=== PATIENT | male | born 1955 | race Caucasian/White ===

== ENCOUNTER 2021-11-24 14:36 | Outpatient (CLI) | payer MEDICARE, SELFPAY ==
[2021-11-24 14:41] LABS: Bacteria 0 SEEN /hpf (None Seen); Mucous, Urine 0 SEEN /hpf (<or=2+); Red Blood Cells-Urine 0 SEEN /hpf (0-5); Squamous Epithelial Cells - UA 0 SEEN /hpf (0-5); White Blood Cells 0 SEEN /hpf (0-5)
[2021-11-24 17:54] LABS: Color, Urine Yellow (Yellow); Glucose, Dipstick Normal (Normal); Ketone-Dipstick Negative (Negative); Leukocyte Esterase-Dipstick Negative /ul (Negative); Nitrite-Dipstick Negative (Negative); Occult Blood-Urine 10 /ul (Negative); Protein-Dipstick Negative (Negative); Urine Bilirubin Dipstick Negative (Negative); Urine Clarity Clear (Clear); Urine Urobilinogen Normal (Normal)
[2021-11-24 17:55] LABS: Absolute Lymphocyte Count 2.65 X10^3/uL (0.83-4.51); Absolute Neutrophil Count 3.8 X10^3/uL (2.0-7.7); Basophil# 0.03 X10^3/uL; Basophil% 0.4 % (0-1); Eosinophil# 0.11 X10^3/uL; Eosinophils% 1.6 % (0-5); Hematocrit 42.2 % (40-54); Hemoglobin 14.2 g/dL (13.0-16.5); Lymphocyte # 2.65 X10^3/ul (0.83-4.51); Lymphocyte % 38.1 % (19-41); Mean Corp Hgb Conc 33.6 g/dL (32-36); Mean Corpuscular Volume 98.1 fL (80-94); Mean Platelet Vol. 10.8 fl (6.2-12.0); Monocyte% 5.7 % (0-10); NRBC Flagged by Analyzer 0 % (0-5); Neutrophil # 3.75 X10^3/uL (2.7-7.7); Neutrophil % 53.9 % (47-70); Platelet Count 230 K/mm3 (150-450); RBC Distribution Width CV 13.5 % (11.6-14.6); RBC Distribution Width SD 49.1 fl (35.1-43.9)
[2021-11-24 18:17] LABS: Vitamin D,25 Hydroxy 57.3 ng/mL
[2021-11-24 18:27] LABS: Microalbumin,Random Urine 9.3 mg/L (NO RANGE EST.); Microalbumin:Creatinine Ratio 6.2 mg/g CRE (<30 mg/g CRE)
[2021-11-24 18:31] LABS: Hemoglobin A1c 5.5 % (3.8-5.6)
[2021-11-24 18:33] LABS: AST(SGOT) 19 U/L (15-37); Alanine Aminotransfer ALT/SGPT 32 U/L (16-61); Alkaline Phosphatase 55 U/L (45-117); Anion Gap 8 (5-15); BUN 14 mg/dL (7-18); BUN/Creat Ratio 19.8 RATIO (10-20); Calcium,Total 9.4 mg/dL (8.5-10.1); Chloride 102 mmol/L (98-107); Cholesterol 105 mg/dL (200); Creatinine, Serum 0.71 mg/dL (0.70-1.30); EST Glomerular Filtration Rate 119 mL/min (>60); Est Glom Filt Rate - Afr Amer 143 mL/min (>60); Globulin 3.9 g/dL (2.2-4.2); Glucose 99 mg/dL (74-106); High Density Lipoprotein 40 mg/dL; Potassium 3.6 mmol/L (3.5-5.1); Protein, Total 7.9 g/dL (6.4-8.2); Sodium Level 134 mmol/L (136-145); Thyroid Stim Hormone (TSH) 2.12 uIU/mL (0.358-3.74); Triglycerides 148 mg/dL; Very Low Density Lipoprotein 30 mg/dL (5-40)
== END 2021-11-24 23:59 | disposition short-term general hospital (02) ==
PROVIDERS: Visit Provider Family Medicine
DX: E11.59 Type 2 diabetes mellitus with other circulatory complications (principal); E11.69 Type 2 diabetes mellitus with other specified complication; E55.9 Vitamin D deficiency, unspecified
CPT/HCPCS: 36415; 80053; 80061; 81001; 82043; 82306; 82570; 83036; 84443; 85025

== ENCOUNTER → 2022-02-23 | Outpatient (CLI) | payer MEDICARE, SELFPAY ==
[2022-02-23 10:08] LABS: Absolute Lymphocyte Count 2.37 X10^3/uL (0.83-4.51); Absolute Neutrophil Count 5.2 X10^3/uL (2.0-7.7); Basophil# 0.04 X10^3/uL; Basophil% 0.5 % (0-1); Eosinophil# 0.12 X10^3/uL; Eosinophils% 1.4 % (0-5); Hematocrit 41.2 % (40-54); Hemoglobin 13.9 g/dL (13.0-16.5); Lymphocyte # 2.37 X10^3/ul (0.83-4.51); Lymphocyte % 28.6 % (19-41); Mean Corp Hgb Conc 33.7 g/dL (32-36); Mean Corpuscular Hgb 33.4 pg (27.0-32.0); Mean Platelet Vol. 10.6 fl (6.2-12.0); Monocyte# 0.56 X10^3/uL; Monocyte% 6.7 % (0-10); NRBC Flagged by Analyzer 0 % (0-5); Neutrophil # 5.19 X10^3/uL (2.7-7.7); Neutrophil % 62.6 % (47-70); Platelet Count 202 K/mm3 (150-450); RBC Distribution Width CV 13.5 % (11.6-14.6); RBC Distribution Width SD 49.3 fl (35.1-43.9); Red Blood Count 4.16 M/mm3 (4.6-6.2); White Blood Count 8.3 K/mm3 (4.4-11.0)
[2022-02-23 10:23] LABS: ALB/GLOB Ratio 1.1 RATIO (0.9-2.4); AST(SGOT) 17 U/L (15-37); Alanine Aminotransfer ALT/SGPT 26 U/L (16-61); Albumin, Serum 3.9 g/dL (3.2-5.0); Alkaline Phosphatase 52 U/L (45-117); Anion Gap 8 (5-15); BUN 13 mg/dL (7-18); BUN/Creat Ratio 18.8 RATIO (10-20); Calcium,Total 9.2 mg/dL (8.5-10.1); Chloride 102 mmol/L (98-107); Cholesterol 114 mg/dL (200); Creatinine, Serum 0.69 mg/dL (0.70-1.30); EST Glomerular Filtration Rate 121 mL/min (>60); Est Glom Filt Rate - Afr Amer 147 mL/min (>60); Globulin 3.7 g/dL (2.2-4.2); Glucose 110 mg/dL (74-106); High Density Lipoprotein 41 mg/dL; Potassium 4.1 mmol/L (3.5-5.1); Protein, Total 7.6 g/dL (6.4-8.2); Sodium Level 137 mmol/L (136-145); Triglycerides 41 mg/dL; Very Low Density Lipoprotein 8 mg/dL (5-40)
[2022-02-23 10:25] LABS: Vitamin D,25 Hydroxy 56.2 ng/mL
[2022-02-23 10:41] LABS: Hemoglobin A1c 5.6 % (3.8-5.6)
== END | disposition home or self-care (01) ==
LOC: MTLAB 07:34
PROVIDERS: PCP Family Medicine; Referring Provider Family Medicine; Visit Provider Family Medicine
DX: E11.59 Type 2 diabetes mellitus with other circulatory complications (principal); E11.69 Type 2 diabetes mellitus with other specified complication; E55.9 Vitamin D deficiency, unspecified
CPT/HCPCS: 36415; 80053; 80061; 82306; 83036; 85025

== ENCOUNTER → 2022-06-22 | Outpatient (CLI) | payer MEDICARE, SELFPAY ==
[2022-06-22 08:19] LABS: Bacteria 0 SEEN /hpf (None Seen); Mucous, Urine 0 SEEN /hpf (<or=2+); Red Blood Cells-Urine 0 SEEN /hpf (0-5); Squamous Epithelial Cells - UA 0 SEEN /hpf (0-5); White Blood Cells 0 SEEN /hpf (0-5)
--- NOTE | 2022-06-22 09:00 | RAD_ITS ---
STUDY: X-RAY CHEST REASON FOR EXAM: Male, 67 years old. CHEST WALL PAIN TECHNIQUE: PA and lateral views of the chest. COMPARISON: None. FINDINGS: Hyperinflation. There is no demonstrated pleural abnormality. Normal size heart. Normal mediastinum and mekhi. Normal visualized pulmonary arteries. There is atherosclerotic calcification of the aortic arch with tortuosity. 50% loss of height of a mid dorsal vertebrae. Prior vertebroplasty. Normal visualized ribs, clavicles, and shoulders. There is no demonstrated abnormality of the visualized soft tissue structures of the upper abdomen. RAD/Chest PA and Lateral IMPRESSION: Hyperinflation. No acute abnormality is seen. Electronically Signed: Jean Pierre Trammell MD at 12:43 EDT ,
[2022-06-22 10:10] LABS: Absolute Lymphocyte Count 3.08 X10^3/uL (0.83-4.51); Absolute Neutrophil Count 4.9 X10^3/uL (2.0-7.7); Basophil# 0.04 X10^3/uL; Basophil% 0.5 % (0-1); Eosinophil# 0.15 X10^3/uL; Eosinophils% 1.7 % (0-5); Hemoglobin 14.6 g/dL (13.0-16.5); Lymphocyte # 3.08 X10^3/ul (0.83-4.51); Lymphocyte % 35.9 % (19-41); Mean Corp Hgb Conc 34.8 g/dL (32-36); Mean Corpuscular Hgb 34.3 pg (27.0-32.0); Mean Corpuscular Volume 98.6 fL (80-94); Mean Platelet Vol. 10.3 fl (6.2-12.0); Monocyte# 0.45 X10^3/uL; Monocyte% 5.2 % (0-10); NRBC Flagged by Analyzer 0 % (0-5); Neutrophil # 4.85 X10^3/uL (2.7-7.7); Neutrophil % 56.5 % (47-70); Platelet Count 194 K/mm3 (150-450); RBC Distribution Width CV 13.4 % (11.6-14.6); RBC Distribution Width SD 49.1 fl (35.1-43.9); Red Blood Count 4.26 M/mm3 (4.6-6.2); White Blood Count 8.6 K/mm3 (4.4-11.0)
[2022-06-22 10:16] LABS: Color, Urine Straw (Yellow); Glucose, Dipstick Normal (Normal); Ketone-Dipstick Negative (Negative); Leukocyte Esterase-Dipstick Negative /ul (Negative); Nitrite-Dipstick Negative (Negative); Occult Blood-Urine 50 /ul (Negative); Protein-Dipstick Negative (Negative); Urine Bilirubin Dipstick Negative (Negative); Urine Clarity Clear (Clear); Urine Urobilinogen Normal (Normal)
[2022-06-22 10:28] LABS: Vitamin D,25 Hydroxy 51.3 ng/mL
[2022-06-22 10:34] LABS: Hemoglobin A1c 5.7 % (3.8-5.6)
[2022-06-22 10:55] LABS: Microalbumin,Random Urine < 5.0 mg/L (NO RANGE EST.)
[2022-06-22 11:18] LABS: ALB/GLOB Ratio 1.2 RATIO (0.9-2.4); AST(SGOT) 14 U/L (15-37); Alanine Aminotransfer ALT/SGPT 22 U/L (16-61); Albumin, Serum 4.2 g/dL (3.2-5.0); Alkaline Phosphatase 44 U/L (45-117); Anion Gap 5 (5-15); BUN 16 mg/dL (7-18); BUN/Creat Ratio 22.7 RATIO (10-20); Calcium,Total 9.6 mg/dL (8.5-10.1); Chloride 104 mmol/L (98-107); Cholesterol 115 mg/dL (200); Creatinine, Serum 0.71 mg/dL (0.70-1.30); EST Glomerular Filtration Rate 118 mL/min (>60); Est Glom Filt Rate - Afr Amer 143 mL/min (>60); Globulin 3.4 g/dL (2.2-4.2); Glucose 104 mg/dL (74-106); High Density Lipoprotein 34 mg/dL; Potassium 4.3 mmol/L (3.5-5.1); Protein, Total 7.6 g/dL (6.4-8.2); Sodium Level 137 mmol/L (136-145); Triglycerides 143 mg/dL
[2022-06-22 11:19] LABS: Very Low Density Lipoprotein 29 mg/dL (5-40)
== END | disposition home or self-care (01) ==
PROVIDERS: PCP Family Medicine; Referring Provider Family Medicine; Visit Provider Family Medicine
DX: R07.89 Other chest pain (principal); E11.69 Type 2 diabetes mellitus with other specified complication; F17.210 Nicotine dependence, cigarettes, uncomplicated; E55.9 Vitamin D deficiency, unspecified
CPT/HCPCS: 36415; 71046; 80053; 80061; 81001; 82043; 82306; 82570; 83036; 85025

== ENCOUNTER → 2022-10-29 | Outpatient (CLI) | payer MEDICARE, SELFPAY ==
[2022-10-29 10:09] LABS: Absolute Lymphocyte Count 2.67 X10^3/uL (0.83-4.51); Absolute Neutrophil Count 4.4 X10^3/uL (2.0-7.7); Basophil# 0.05 X10^3/uL; Basophil% 0.6 % (0-1); Eosinophil# 0.16 X10^3/uL; Hematocrit 45.6 % (40-54); Hemoglobin 15.6 g/dL (13.0-16.5); Lymphocyte # 2.67 X10^3/ul (0.83-4.51); Lymphocyte % 34.1 % (19-41); Mean Corp Hgb Conc 34.2 g/dL (32-36); Mean Corpuscular Hgb 34.1 pg (27.0-32.0); Mean Corpuscular Volume 99.8 fL (80-94); Mean Platelet Vol. 10.5 fl (6.2-12.0); Monocyte# 0.51 X10^3/uL; Monocyte% 6.5 % (0-10); NRBC Flagged by Analyzer 0 % (0-5); Neutrophil # 4.38 X10^3/uL (2.7-7.7); Neutrophil % 56.2 % (47-70); Platelet Count 217 K/mm3 (150-450); RBC Distribution Width CV 12.7 % (11.6-14.6); RBC Distribution Width SD 46.5 fl (35.1-43.9); Red Blood Count 4.57 M/mm3 (4.6-6.2); White Blood Count 7.8 K/mm3 (4.4-11.0)
[2022-10-29 10:28] LABS: Vitamin D,25 Hydroxy 41.5 ng/mL
[2022-10-29 10:32] LABS: Microalbumin,Random Urine 9.8 mg/L (NO RANGE EST.); Microalbumin:Creatinine Ratio 16.4 mg/g CRE (<30 mg/g CRE)
[2022-10-29 10:49] LABS: ALB/GLOB Ratio 1.1 RATIO (0.9-2.4); AST(SGOT) 17 U/L (15-37); Alanine Aminotransfer ALT/SGPT 46 U/L (16-61); Albumin, Serum 4.1 g/dL (3.2-5.0); Alkaline Phosphatase 49 U/L (45-117); Anion Gap 9 (5-15); BUN 15 mg/dL (7-18); BUN/Creat Ratio 19.3 RATIO (10-20); Calcium,Total 9.7 mg/dL (8.5-10.1); Chloride 101 mmol/L (98-107); Cholesterol 139 mg/dL (200); Creatinine, Serum 0.78 mg/dL (0.70-1.30); EST Glomerular Filtration Rate 106 mL/min (>60); Est Glom Filt Rate - Afr Amer 128 mL/min (>60); Globulin 3.8 g/dL (2.2-4.2); Glucose 122 mg/dL (74-106); High Density Lipoprotein 46 mg/dL; Protein, Total 7.9 g/dL (6.4-8.2); Sodium Level 137 mmol/L (136-145); Triglycerides 137 mg/dL; Very Low Density Lipoprotein 27 mg/dL (5-40)
[2022-10-29 11:08] LABS: Hemoglobin A1c 5.7 % (3.8-5.6)
== END | disposition home or self-care (01) ==
LOC: MTLAB 07:20
PROVIDERS: PCP Family Medicine; Referring Provider Family Medicine; Visit Provider Family Medicine
DX: E11.9 Type 2 diabetes mellitus without complications (principal); E55.9 Vitamin D deficiency, unspecified
CPT/HCPCS: 36415; 80053; 80061; 82043; 82306; 82570; 83036; 85025

== ENCOUNTER → 2023-01-20 | Outpatient (CLI) | payer MEDICARE, SELFPAY ==
--- NOTE | 2023-01-20 14:23 | RAD_ITS ---
STUDY: X-RAY - LUMBAR SPINE REASON FOR EXAM: Male, 67 years old. LUMBAR RADICULOPATHY TECHNIQUE: 2 view(s) of the lumbar spine were obtained. COMPARISON: None FINDINGS: Normal lumbar lordosis. There is no substantial scoliosis. Grade 1 anterolisthesis of L5 on S1 most likely secondary to facet joint osteoarthritis. There is multilevel endplate spondylosis of the lumbar vertebrae. There is multi-level degenerative disc disease with multi-level disc space narrowing. There is atherosclerotic calcification of the abdominal aorta without a demonstrated aneurysm. RAD/Lumbar Spine 2 or 3 Views IMPRESSION: Degenerative changes of the spine, as detailed above. Grade 1 anterior listhesis of L5 on S1 most likely secondary to facet joint osteoarthritis. Electronically Signed: Jean Pierre Trammell MD at 14:44 EDT ,
[2023-01-20 18:07] LABS: Absolute Lymphocyte Count 2.75 X10^3/uL (0.83-4.51); Absolute Neutrophil Count 3.6 X10^3/uL (2.0-7.7); Basophil# 0.04 X10^3/uL; Basophil% 0.5 % (0-1); Eosinophil# 0.15 X10^3/uL; Eosinophils% 2.1 % (0-5); Hematocrit 41.9 % (40-54); Hemoglobin 14.3 g/dL (13.0-16.5); Lymphocyte # 2.75 X10^3/ul (0.83-4.51); Lymphocyte % 37.8 % (19-41); Mean Corp Hgb Conc 34.1 g/dL (32-36); Mean Corpuscular Hgb 33.9 pg (27.0-32.0); Mean Corpuscular Volume 99.3 fL (80-94); Mean Platelet Vol. 10.8 fl (6.2-12.0); Monocyte% 9.6 % (0-10); NRBC Flagged by Analyzer 0 % (0-5); Neutrophil % 49.5 % (47-70); Platelet Count 228 K/mm3 (150-450); RBC Distribution Width CV 13.2 % (11.6-14.6); RBC Distribution Width SD 47.9 fl (35.1-43.9); Red Blood Count 4.22 M/mm3 (4.6-6.2); White Blood Count 7.3 K/mm3 (4.4-11.0)
[2023-01-20 18:54] LABS: ALB/GLOB Ratio 1.2 RATIO (0.9-2.4); AST(SGOT) 23 U/L (15-37); Alanine Aminotransfer ALT/SGPT 39 U/L (16-61); Albumin, Serum 4.2 g/dL (3.2-5.0); Alkaline Phosphatase 54 U/L (45-117); Anion Gap 8 (5-15); BUN 13 mg/dL (7-18); Calcium,Total 9.2 mg/dL (8.5-10.1); Chloride 100 mmol/L (98-107); Cholesterol 127 mg/dL (200); Creatinine, Serum 0.72 mg/dL (0.70-1.30); EST Glomerular Filtration Rate 115 mL/min (>60); Est Glom Filt Rate - Afr Amer 139 mL/min (>60); Globulin 3.4 g/dL (2.2-4.2); Glucose 83 mg/dL (74-106); High Density Lipoprotein 35 mg/dL; Protein, Total 7.6 g/dL (6.4-8.2); Sodium Level 134 mmol/L (136-145); Thyroid Stim Hormone (TSH) 2.54 uIU/mL (0.358-3.74); Triglycerides 264 mg/dL; Very Low Density Lipoprotein 53 mg/dL (5-40)
[2023-01-20 18:59] LABS: PSA,Total - Annual Screen 0.73 ng/mL (0.00-4.00)
[2023-01-20 19:37] LABS: Hemoglobin A1c 6.1 % (3.8-5.6)
== END | disposition home or self-care (01) ==
LOC: MTLAB 14:22
PROVIDERS: Nurse Practitioner Family; PCP Family Medicine; Referring Provider Family Medicine; Visit Provider Family Medicine
DX: M54.16 Radiculopathy, lumbar region (principal); E11.9 Type 2 diabetes mellitus without complications; Z12.5 Encounter for screening for malignant neoplasm of prostate; E55.9 Vitamin D deficiency, unspecified
CPT/HCPCS: 36415; 72100; 80053; 80061; 82306; 83036; 84153; 84443; 85025; G0103

== ENCOUNTER → 2023-02-01 | Outpatient (CLI) | payer MEDICARE, SELFPAY ==
--- NOTE | 2023-02-01 16:00 | RAD_ITS ---
EXAM: XR CERVICAL SPINE, 4 OR 5 VIEWS CLINICAL INDICATION: Radiculopathy, cervical region TECHNIQUE: Frontal, lateral and bilateral oblique views of the cervical spine. This report was created using [employer] report [employer] technology. COMPARISON: None. FINDINGS: VERTEBRAE: There is mild reversal the normal cervical lordosis. Preserved vertebral body height. No acute fracture. No spondylolisthesis. No significant facet arthropathy. DISC SPACES: There is disc space narrowing at C5-6 and C6-7. Oblique views show bony neural foraminal narrowing on the left at C5-6 and C6-7. SOFT TISSUES: Unremarkable. No prevertebral soft tissue widening. LUNG APICES: Clear. RAD/Cerv Spine 4 or 5 Views IMPRESSION: 1. No acute osseous abnormalities. 2. Degenerative changes with disc space narrowing and bony neural foraminal narrowing. 3. Reversal of the normal cervical lordosis which may be due to a muscular strain. Electronically Signed: Benito Li MD at 23:59 EDT ,
== END | disposition home or self-care (01) ==
LOC: MTRAD 16:00
PROVIDERS: PCP Family Medicine; Referring Provider Family Medicine; Visit Provider Family Medicine
DX: M54.12 Radiculopathy, cervical region (principal)
CPT/HCPCS: 72050

== ENCOUNTER → 2023-02-07 | Outpatient (CLI) | payer MEDICARE, SELFPAY ==
--- NOTE | 2023-02-07 13:27 | CT_ITS ---
INDICATION: NICOTINE DEPEN EXAMINATION: CT CHEST WITH CONTRAST - CT Low Dose CT Chest for Lung Cancer Screening A radiation dose optimization technique was used for this scan. COMPARISON: Chest radiograph 06/22/2022.. FINDINGS: Noncontrast serial CT axial images through the chest without orthogonal reformatted series. MEDIASTINUM: Mediastinal adenopathy measuring up to 15 mm in the short axis in the AP window. Dense coronary artery atherosclerotic vascular calcifications. LUNG PARENCHYMA: Large 2.6 cm right apical subpleural atypical pulmonary cyst with irregular wall thickening. Biapical nodular pleural thickening. PLEURA: No pleural effusion. No pneumothorax. BONES: Midthoracic vertebral body compression deformity containing vertebroplasty cement. UPPER ABDOMEN: Bilateral adrenal thickening without definite discrete lesion. CT/Low Dose CT Lung Screening IMPRESSION: Large 2.6 cm right apical subpleural thick-walled atypical pulmonary cyst as above. Lung-RADS 4A. Likely associated mediastinal adenopathy. Malignancy is not excluded. Bilateral adrenal thickening without definite discrete lesion, to include hyperplasia in this suboptimal examination. Electronically Signed: Jus Quezada MD at 3:15 EDT ,
== END | disposition home or self-care (01) ==
LOC: CT 13:26
PROVIDERS: PCP Family Medicine; Visit Provider Family Medicine
DX: Z87.891 Personal history of nicotine dependence (principal)
CPT/HCPCS: 71271

== ENCOUNTER → 2023-05-20 | Outpatient (CLI) | payer MEDICARE, SELFPAY ==
[2023-05-20 10:01] LABS: Absolute Lymphocyte Count 2.76 X10^3/uL (0.83-4.51); Absolute Neutrophil Count 4.7 X10^3/uL (2.0-7.7); Basophil# 0.04 X10^3/uL; Basophil% 0.5 % (0-1); Eosinophil# 0.15 X10^3/uL; Eosinophils% 1.8 % (0-5); Hematocrit 41.1 % (40-54); Hemoglobin 14.1 g/dL (13.0-16.5); Lymphocyte # 2.76 X10^3/ul (0.83-4.51); Lymphocyte % 33.8 % (19-41); Mean Corp Hgb Conc 34.3 g/dL (32-36); Mean Corpuscular Hgb 33.7 pg (27.0-32.0); Mean Corpuscular Volume 98.3 fL (80-94); Mean Platelet Vol. 9.9 fl (6.2-12.0); Monocyte# 0.51 X10^3/uL; Monocyte% 6.3 % (0-10); NRBC Flagged by Analyzer 0 % (0-5); Neutrophil # 4.67 X10^3/uL (2.7-7.7); Neutrophil % 57.2 % (47-70); Platelet Count 218 K/mm3 (150-450); RBC Distribution Width CV 13.2 % (11.6-14.6); RBC Distribution Width SD 47.8 fl (35.1-43.9); Red Blood Count 4.18 M/mm3 (4.6-6.2); White Blood Count 8.2 K/mm3 (4.4-11.0)
[2023-05-20 10:25] LABS: ALB/GLOB Ratio 1.1 RATIO (0.9-2.4); AST(SGOT) 26 U/L (15-37); Alanine Aminotransfer ALT/SGPT 39 U/L (16-61); Albumin, Serum 3.9 g/dL (3.2-5.0); Alkaline Phosphatase 50 U/L (45-117); Anion Gap 5 (5-15); BUN 10 mg/dL (7-18); Calcium,Total 9.1 mg/dL (8.5-10.1); Chloride 104 mmol/L (98-107); Cholesterol 131 mg/dL (200); Creatinine, Serum 0.77 mg/dL (0.70-1.30); EST Glomerular Filtration Rate 107 mL/min (>60); Est Glom Filt Rate - Afr Amer 129 mL/min (>60); Globulin 3.4 g/dL (2.2-4.2); Glucose 123 mg/dL (74-106); High Density Lipoprotein 36 mg/dL; Potassium 4.2 mmol/L (3.5-5.1); Protein, Total 7.3 g/dL (6.4-8.2); Sodium Level 137 mmol/L (136-145); Triglycerides 151 mg/dL; Very Low Density Lipoprotein 30 mg/dL (5-40)
[2023-05-20 10:26] LABS: Vitamin D,25 Hydroxy 48.2 ng/mL
[2023-05-20 10:29] LABS: Hemoglobin A1c 6.1 % (3.8-5.6)
== END | disposition home or self-care (01) ==
LOC: MTLAB 07:38
PROVIDERS: PCP Family Medicine; Referring Provider Family Medicine; Visit Provider Family Medicine
DX: E11.9 Type 2 diabetes mellitus without complications (principal); M81.0 Age-related osteoporosis without current pathological fracture
CPT/HCPCS: 36415; 80053; 80061; 82306; 83036; 85025

== ENCOUNTER → 2023-05-24 | Outpatient (CLI) | payer MEDICARE, SELFPAY ==
--- NOTE | 2023-05-24 13:35 | CT_ITS ---
EXAM: CT CHEST WITHOUT INTRAVENOUS CONTRAST CLINICAL INDICATION: Other nonspecific abnormal finding of lung field -- PT TECHNIQUE: Helically acquired images were obtained of the chest without intravenous contrast. This CT exam was performed using one or more of the following dose reduction techniques: automated exposure control, adjustment of the mA and/or kV according to patient size, and/or use of iterative reconstruction technique. RADIATION DOSE: CTDIvol = 10.10 mGy, DLP = 366.34 mGy-cm COMPARISON: 02/07/2023 FINDINGS: LUNGS AND PLEURAL SPACES: Hyperexpansion of the lungs consistent with COPD. Findings consistent with mild diffuse centrilobular emphysema. No mass. No pleural effusion or thickening. No pneumothorax. No inflammatory infiltrates. HEART: Unremarkable. Heart size is normal. No pericardial effusion. No significant coronary artery calcifications. MEDIASTINUM: Although no gross mediastinal or hilar mass or adenopathy is seen, adenopathy is difficult to exclude without IV contrast was not given. Esophagus is unremarkable. No hiatal hernia. THYROID: Unremarkable. No thyroid lesions. BONES/JOINTS: Stable kyphoplasty of compression fracture at T8. No suspicious lytic or blastic abnormality. VASCULATURE: Calcified plaque of the aorta with no aneurysm. ADRENALS: Bilateral low density enlargement of the adrenal glands, stable. OTHER FINDINGS: Stable scarring in both apices including small cavitary lesions . CT/Chest without Contrast IMPRESSION: 1. COPD/lobular emphysema, stable. 2. Stable scarring in both apices. 3. No definite acute chest disease. 4. Bilateral enlargement of the adrenal glands, recommend further evaluation with contrast CT of the abdomen and pelvis. Electronically Signed: Logan Chawla MD at 19:16 EDT ,
== END | disposition home or self-care (01) ==
PROVIDERS: PCP Family Medicine; Referring Provider Internal Medicine Pulmonary Disease; Visit Provider Internal Medicine Pulmonary Disease
DX: R91.8 Other nonspecific abnormal finding of lung field (principal)
CPT/HCPCS: 71250

== ENCOUNTER → 2023-06-14 | Outpatient (CLI) | payer MEDICARE, SELFPAY ==
[2023-06-14 09:20] LABS: Absolute Lymphocyte Count 2.03 X10^3/uL (0.83-4.51); Absolute Neutrophil Count 5.7 X10^3/uL (2.0-7.7); Basophil# 0.05 X10^3/uL; Basophil% 0.6 % (0-1); Eosinophil# 0.13 X10^3/uL; Eosinophils% 1.5 % (0-5); Hematocrit 41.5 % (40-54); Hemoglobin 14.1 g/dL (13.0-16.5); Lymphocyte # 2.03 X10^3/ul (0.83-4.51); Lymphocyte % 23.5 % (19-41); Mean Corpuscular Hgb 33.6 pg (27.0-32.0); Mean Corpuscular Volume 98.8 fL (80-94); Mean Platelet Vol. 10.5 fl (6.2-12.0); Monocyte# 0.69 X10^3/uL; NRBC Flagged by Analyzer 0 % (0-5); Neutrophil # 5.67 X10^3/uL (2.7-7.7); Neutrophil % 65.7 % (47-70); Platelet Count 221 K/mm3 (150-450); RBC Distribution Width CV 13.2 % (11.6-14.6); RBC Distribution Width SD 47.6 fl (35.1-43.9); White Blood Count 8.6 K/mm3 (4.4-11.0)
[2023-06-14 09:43] LABS: Anion Gap 4 (5-15); BUN 13 mg/dL (7-18); BUN/Creat Ratio 17.8 RATIO (10-20); Chloride 101 mmol/L (98-107); Creatinine, Serum 0.73 mg/dL (0.70-1.30); EST Glomerular Filtration Rate 113 mL/min (>60); Est Glom Filt Rate - Afr Amer 137 mL/min (>60); Glucose 126 mg/dL (74-106); Potassium 4.3 mmol/L (3.5-5.1); Sodium Level 136 mmol/L (136-145)
== END | disposition home or self-care (01) ==
LOC: PSN 07:56
PROVIDERS: PCP Family Medicine; Referring Provider Physician Assistant Surgical; Visit Provider Physician Assistant Surgical
DX: Z01.818 Encounter for other preprocedural examination (principal); Z01.810 Encounter for preprocedural cardiovascular examination
CPT/HCPCS: 36415; 80048; 83036; 85025; 93005

== ENCOUNTER → 2023-08-29 | Outpatient (CLI) | payer MEDICARE, SELFPAY ==
[2023-08-29 10:16] LABS: Absolute Lymphocyte Count 2.08 X10^3/uL (0.83-4.51); Absolute Neutrophil Count 3.7 X10^3/uL (2.0-7.7); Basophil# 0.05 X10^3/uL; Basophil% 0.8 % (0-1); Eosinophil# 0.08 X10^3/uL; Eosinophils% 1.3 % (0-5); Hematocrit 42.8 % (40-54); Hemoglobin 14.2 g/dL (13.0-16.5); Lymphocyte # 2.08 X10^3/ul (0.83-4.51); Lymphocyte % 32.6 % (19-41); Mean Corp Hgb Conc 33.2 g/dL (32-36); Mean Corpuscular Hgb 33.7 pg (27.0-32.0); Mean Corpuscular Volume 101.7 fL (80-94); Mean Platelet Vol. 9.9 fl (6.2-12.0); Monocyte# 0.46 X10^3/uL; Monocyte% 7.2 % (0-10); NRBC Flagged by Analyzer 0 % (0-5); Neutrophil # 3.67 X10^3/uL (2.7-7.7); Neutrophil % 57.5 % (47-70); Platelet Count 269 K/mm3 (150-450); RBC Distribution Width CV 13.1 % (11.6-14.6); RBC Distribution Width SD 48.8 fl (35.1-43.9); Red Blood Count 4.21 M/mm3 (4.6-6.2); White Blood Count 6.4 K/mm3 (4.4-11.0)
[2023-08-29 10:45] LABS: AST(SGOT) 25 U/L (15-37); Alanine Aminotransfer ALT/SGPT 53 U/L (16-61); Albumin, Serum 3.7 g/dL (3.2-5.0); Alkaline Phosphatase 54 U/L (45-117); Anion Gap 3 (5-15); BUN 13 mg/dL (7-18); BUN/Creat Ratio 17.4 RATIO (10-20); Chloride 101 mmol/L (98-107); Cholesterol 128 mg/dL (200); Creatinine, Serum 0.75 mg/dL (0.70-1.30); EST Glomerular Filtration Rate 110 mL/min (>60); Est Glom Filt Rate - Afr Amer 133 mL/min (>60); Globulin 3.7 g/dL (2.2-4.2); Glucose 125 mg/dL (74-106); High Density Lipoprotein 38 mg/dL; Potassium 4.1 mmol/L (3.5-5.1); Protein, Total 7.4 g/dL (6.4-8.2); Sodium Level 134 mmol/L (136-145); Triglycerides 128 mg/dL; Very Low Density Lipoprotein 26 mg/dL (5-40)
[2023-08-29 11:01] LABS: Vitamin D,25 Hydroxy 60.3 ng/mL
[2023-08-29 11:11] LABS: Hemoglobin A1c 5.7 % (3.8-5.6)
== END | disposition home or self-care (01) ==
LOC: MTLAB 07:53
PROVIDERS: PCP Family Medicine; Referring Provider Family Medicine; Visit Provider Family Medicine
DX: E11.69 Type 2 diabetes mellitus with other specified complication (principal); E55.9 Vitamin D deficiency, unspecified
CPT/HCPCS: 36415; 80053; 80061; 82306; 83036; 85025

== ENCOUNTER → 2023-12-28 | Outpatient (CLI) | payer MEDICARE, SELFPAY ==
--- NOTE | 2023-12-28 09:59 | BD_ITS ---
STUDY: DUAL ENERGY X-RAY ABSORPTIOMETRY / DXA REASON FOR EXAM: Male, 68 years old. M81.0 TECHNIQUE: Bone Mineral Density (BMD) measurements of lumbar spine and bilateral hips were obtained. COMPARISON: None. FINDINGS: Lumbar Spine (L1-L4): g/cm2 (0.911) / T-score (-1.3) / Z-score (-0.5) Findings are suggestive of osteopenia with a low fracture risk. Left Femur Total: g/cm2 (0.890) / T-score (-0.9) / Z-score (-0.3) Left Femoral Neck: g/cm2 (0.694) / T-score (-1.7) / Z-score (-0.6) Right Femur Total: g/cm2 (0.930) / T-score (-0.7) / Z-score (-0.1) Right Femoral Neck: g/cm2 (0.748) / T-score (-1.3) / Z-score (-0.2) BD/Dexa Bone Density Study IMPRESSION: The patient is considered osteopenic as outlined below according to World Jaime Organization (WHO) criteria with a moderate fracture risk. Reference Information: The T-score is the number of standard deviations above or below the standard which is normal for young adults at their peak bone mineral density. The World Health Organization (WHO) interprets the T-scores as follows: Above -1 Normal bone density Between -1 and -2.5 Osteopenia Equal to / or below -2.5 Osteoporosis As a practical clinical guideline, osteopenia may be graded as follows: Mild -1 through -1.5 Moderate -1.6 through -2.0 Severe -2.1 through -2.4 The Z-score is the number of standard deviations above or below age-matched controls. A Z-score of less than -1.5 would be considered abnormal. References: 1. NIH Osteoporosis and Related Bone Diseases www osteo.org 2. International Society for Clinical Densitometry www iscd.org 3. National Osteoporosis Foundation www nof.org Electronically Signed: Jean Pierre Trammell MD at 14:54 EDT ,
--- OUTSIDE RECORDS SUMMARY | 2023-12-28 10:19 | XMS RPT_ITS | CCD ---
Author Name Unknown Address [address] [place] [address] Organization [facility] Care Team Providers Care Adult Education Manager Name Role Phone MD FAUSTINO GARCIA Attending MD FAUSTINO Pierre Primary Care Anika shahid Encounters Encounter Date Encounter Type Care Provider Facility Start: 12-29-2020 ambulatory MD FAUSTINO GARCIA Fa cility:[facility] Payers Date Payer Category Payer Private Health Insurance 1955 Unknown [id number] Clinical Note 07-21-2021 Note Date & Type Note Facility 07-21-2021 Note Chief Complaint Patient presents for colonoscopy consultation. History of Present Illness 66 year old male, patient of Dr. Garcia Patient here to discuss repeat colonoscopy. Last colonoscopy performed 04/12/2011 (Dr. Torres). Findings include small internal hemorrhoids. Patient denies any changes in bowel habits. No family history of colon cancer or polyps. Review of Systems Constitutional: No fevers, chills, sweats, weight loss or weight gain Respiratory: No shortness of breath, cough Cardiovascular: +HTN Gastrointestinal: No nausea, vomiting, diarrhea, no swallowing difficulties Liver: No jaundice, hepatitis Genitourinary: No hematuria, no kidney problems Hematologic: Never been transfused, no bleeding disorders Neuro: Denies strokes, TIA, seizures As reviewed in the HPI. All other systems reviewed are negative or normal. Physical Exam Gen: Awake, alert Lungs: Clear to auscultation, no wheezes or rhonchi, non-labored respiration Heart: Regular rate and rhythm, no murmurs, gallops Abdomen: Soft, non-tender, non-distended, no masses, spleen and liver not enlarged, no hernias Extremities: Non-edematous, feet warm bilaterally Additional Vitals No qualifying data available. Medical Decision Making Chronic conditions NOT treated during this visit that affected my overall medical decision making: [] Treatment plans discussed but not opted for at this time: [] Prescribed medication that requires intensive monitoring for toxicity: [] I have reviewed the patient?s medication list for medication interactions/contraindications and/or for upcoming procedures: [yes or no] Time Spent with the Patient I have personally spent [] minutes on this date, directly related to today's patient visit, including pre and post visit work, for this date of service. Time listed does not include time spent on separately billable services. Problem List/Past Medical History Ongoing Reyes's esophagus (2002) Diabetes Hiatal hernia Hyperlipemia Hypertension Internal hemorrhoids Osteoporosis Historical Gastritis Procedure/Surgical History Excision of right testicular mass, benign Lumbar laminectomy EGD (10/23/2003) Skin excision, back (04/25/2006) Left wrist, I&D, ORIF (07/27/2008) Colonoscopy (04/12/2011) Medications alendronate 70 mg oral tablet, 70 mg= 1 tabs, Oral, Tuesday Calcium meloxicam 15 mg oral tablet, 15 mg= 1 tabs, Oral, Daily, PRN metFORMIN 1000 mg oral tablet, 1000 mg= 1 tabs, Oral, BID metoprolol tartrate 25 mg oral tablet, 25 mg= 1 tabs, Oral, BID multivitamin, 1 tabs, Oral, Daily simvastatin 40 mg oral tablet, 40 mg= 1 tabs, Oral, HS (at bedtime) Vitamin D3 Allergies No Known Allergies Social History Alcohol Never Substance Abuse Denies All Tobacco Former smoker, quit more than 5 years ago Use:. Family History Liver disease: Mother. Lung disease: Father. Health Maintenance Colonoscopy 04/12/2011 Electronically Signed by Magalie Nickerson 07/15/21 09:57 EDT Megan Durán PA-C Danny ADORNO, Marco Solomon [facility] Clinical Note 07-15-2021 Note Date & Type Note Facility 07-15-2021 Note Patient Education Ma terials Name: Foster Worthington Current Date: 07/15/2021 09:57:26 [place] : 1955 The following sheet(s) are the Patient Education Leaflets for Foster Worthington [facility] Colonoscopy A camera attached to a flexible tube with a viewing lens is used to take video pictures. Colonoscopy?is a test to view the inside of your lower digestive tract (colon and rectum).?Sometimes it can show the last part of the small intestine (ileum).?During the test, small pieces of tissue may be removed for testing. This is called a biopsy. Small growths, such as polyps, may also be removed.? Why is colonoscopy done? The test is done to help look for colon cancer. And it can help find the source of abdominal pain,?bleeding,?and changes in bowel habits. It may be needed once a year to every 10 years, depending on factors such as your: ?Age ?Health history ?Family health history ?Symptoms ?Results from any prior colonoscopy Risks and possible complications These include: ?Bleeding?A puncture or tear in the colon? ?Risks of anesthesia ?A cancer lesion not being seen or fully removed Getting ready? To prepare for the test: ?Talk with your healthcare provider about the risks of the test (see below). Also ask your healthcare provider about alternatives to the test. ?Tell your healthcare provider about any medicines and supplements you take. Also?tell him or her about any health conditions you may have. ?Make sure your rectum and colon are empty for the test. Follow the diet and bowel prep instructions exactly. If you don?t, the test may need to be rescheduled. ?Plan for a friend or family member to drive you home after the test. Colonoscopy provides an inside view of the entire colon. You may discuss the results with your doctor right away or at a future visit. During the test? The test is usually done in the hospital on an outpatient basis or at an outpatient clinic. This means you go home the same day. The procedure takes about 30?minutes. During that time: ?You are given relaxing (sedating) medicine through an IV line.?You may be drowsy, or fully asleep. ?The healthcare provider will first give you a physical exam to check for anal and?rectal problems. ?Then the anus is lubricated and the scope inserted. ?If you are awake, you may have a feeling similar to needing to have a bowel?movement. You may also feel pressure as air is pumped into the colon. It?s?OK to pass gas during the procedure. ?Biopsy, polyp removal, or other treatments may be done during the test. After the test? You may have gas right after the test. It can help to try to pass it to help prevent later bloating. Your healthcare provider may discuss the results with you right away. Or you may need to schedule a follow-up visit to talk about the results. After the test, you can go back to your normal eating and?other activities. You may be tired from the sedation and need to rest for a few hours. Discuss your medicines with your provider to understand if they can be restarted right away. ? [id number] [employer]. [address] [place] [address]. All rights reserved. This information is not intended as a substitute for professional medical care. Always follow your healthcare professional's instructions. [facility] Summary Purpose Family History No Family History Records Found Advance Directives No Advanced Directives Records Found Additional Source Comments (unrecognized sect ion and content) No Status Records Found INFORMATION SOURCE (unrecogn ized section and content) FOR RECORDS PERTAINING TO PATIENTS WHO ARE OR HAVE BEEN ENROLLED IN A CHEMICAL DEPENDENCY/SUBSTANCEABUSE PROGRAM, SOME INFORMATION MAY BE OMITTED. This clinical summary was aggregated from multiple sources. Caution should be exercised in using it in the provision of clinical care. This summary normalizes information from multiple sources, and as a consequence, information in this document may materially change the coding, format and clinical context of patient data. In addition, data may be omitted in some cases. CLINICAL DECISIONS SHOULD BE BASED ON THE PRIMARY CLINICAL RECORDS. [facility]. provides no warranty or guarantee of the accuracy or completeness of information in this document.
== END | disposition home or self-care (01) ==
LOC: OPBD 09:55
PROVIDERS: PCP Family Medicine; Referring Provider Family Medicine; Visit Provider Family Medicine
DX: M81.0 Age-related osteoporosis without current pathological fracture (principal)
CPT/HCPCS: 77080

== ENCOUNTER → 2024-01-31 | Outpatient (CLI) | payer MEDICARE, SELFPAY ==
[2024-01-31 08:38] LABS: Bacteria 0 SEEN /hpf (None Seen); Mucous, Urine 0 SEEN /hpf (<or=2+); Squamous Epithelial Cells - UA 0 SEEN /hpf (0-5); White Blood Cells 0 SEEN /hpf (0-5)
[2024-01-31 09:50] LABS: Color, Urine Yellow (Yellow); Glucose, Dipstick Normal (Normal); Ketone-Dipstick Negative (Negative); Leukocyte Esterase-Dipstick Negative /ul (Negative); Nitrite-Dipstick Negative (Negative); Occult Blood-Urine 10 /ul (Negative); Protein-Dipstick Negative (Negative); Urine Bilirubin Dipstick Negative (Negative); Urine Clarity Clear (Clear); Urine Urobilinogen Normal (Normal)
[2024-01-31 09:53] LABS: Absolute Lymphocyte Count 1.81 X10^3/uL (0.83-4.51); Absolute Neutrophil Count 4.6 X10^3/uL (2.0-7.7); Basophil# 0.04 X10^3/uL; Basophil% 0.6 % (0-1); Eosinophil# 0.08 X10^3/uL; Eosinophils% 1.1 % (0-5); Hematocrit 37.1 % (40-54); Hemoglobin 12.9 g/dL (13.0-16.5); Lymphocyte # 1.81 X10^3/ul (0.83-4.51); Lymphocyte % 25.2 % (19-41); Mean Corp Hgb Conc 34.8 g/dL (32-36); Mean Corpuscular Hgb 34.8 pg (27.0-32.0); Mean Platelet Vol. 9.3 fl (6.2-12.0); Monocyte# 0.61 X10^3/uL; Monocyte% 8.5 % (0-10); NRBC Flagged by Analyzer 0 % (0-5); Neutrophil # 4.58 X10^3/uL (2.7-7.7); Neutrophil % 63.9 % (47-70); Platelet Count 244 K/mm3 (150-450); RBC Distribution Width CV 13.2 % (11.6-14.6); RBC Distribution Width SD 48.7 fl (35.1-43.9); Red Blood Count 3.71 M/mm3 (4.6-6.2); White Blood Count 7.2 K/mm3 (4.4-11.0)
[2024-01-31 09:56] LABS: Red Blood Cells-Urine 0-5 SEEN /hpf (0-5)
[2024-01-31 10:13] LABS: Vitamin D,25 Hydroxy 56.5 ng/mL
[2024-01-31 14:13] LABS: ALB/GLOB Ratio 1.2 RATIO (0.9-2.4); AST(SGOT) 29 U/L (15-37); Alanine Aminotransfer ALT/SGPT 46 U/L (16-61); Albumin, Serum 3.7 g/dL (3.2-5.0); Alkaline Phosphatase 48 U/L (45-117); Anion Gap 8 (5-15); BUN 14 mg/dL (7-18); BUN/Creat Ratio 18.4 RATIO (10-20); Calcium,Total 9.3 mg/dL (8.5-10.1); Chloride 100 mmol/L (98-107); Cholesterol 104 mg/dL (200); Creatinine, Serum 0.76 mg/dL (0.70-1.30); EST Glomerular Filtration Rate 108 mL/min (>60); Est Glom Filt Rate - Afr Amer 131 mL/min (>60); Globulin 3.2 g/dL (2.2-4.2); Glucose 166 mg/dL (74-106); High Density Lipoprotein 34 mg/dL; PSA,Total - Annual Screen 0.54 ng/mL (0.00-4.00); Potassium 3.9 mmol/L (3.5-5.1); Protein, Total 6.9 g/dL (6.4-8.2); Sodium Level 132 mmol/L (136-145); Triglycerides 108 mg/dL; Very Low Density Lipoprotein 22 mg/dL (5-40)
[2024-01-31 15:01] LABS: Microalbumin,Random Urine < 5.0 mg/L (NO RANGE EST.)
[2024-01-31 16:03] LABS: Hemoglobin A1c 6.2 % (3.8-5.6)
== END | disposition home or self-care (01) ==
LOC: MTLAB 08:34
PROVIDERS: PCP Family Medicine; Referring Provider Family Medicine; Visit Provider Family Medicine
DX: Z12.5 Encounter for screening for malignant neoplasm of prostate (principal); E11.8 Type 2 diabetes mellitus with unspecified complications; E55.9 Vitamin D deficiency, unspecified
CPT/HCPCS: 36415; 80053; 80061; 81001; 82043; 82306; 82570; 83036; 84153; 85025; G0103

== ENCOUNTER → 2024-02-09 | Outpatient (CLI) | payer MEDICARE, SELFPAY ==
--- NOTE | 2024-02-09 07:46 | CT_ITS ---
STUDY: LOW DOSE CT LUNG CANCER SCREENING REASON FOR EXAM: Male, 68 years old. Current smoker. Patient smoked 1 pack per day for 53 years. RADIATION DOSAGE (If Supplied By Facility): CTDIvol = ( 3.02 ) mGy, DLP = ( 100.05 ) mGycm TECHNIQUE: No contrast was administered. Low dose technique was utilized (average mAS-38 and kVp 120). 1.25 mm axial source images with a slice interval of 1.25-mm were reconstructed in lung windows. 2.5 mm axial source images with a slice interval of 2.5-mm were reconstructed in lung windows. 5.0 mm axial source images with a slice interval of 5.0-mm were reconstructed in soft tissue windows. COMPARISON: Comparison is made with prior study May 24, 2023. NODULES: No suspicious nodules are seen. Emphysema: Hyperinflation and COPD. Emphysematous changes worse in the upper lobes. Stable scarring at the lung apices more prominent on the right side. Endobronchial lesion: None Aorta: Atherosclerotic plaque formation of the aortic arch. CORONARY ARTERIES: Coronary artery calcification is seen. Heart: Unremarkable Pulmonary artery: Unremarkable Mediastinal nodes: Small mediastinal lymph nodes are seen. Other chest and abdominal findings: Prior kyphoplasty of the T8 vertebrae. CT/Low Dose CT Lung Screening IMPRESSION: Lung-RADS category 2 - Continue annual screening with LDCT in 12 months. IMPORTANT NOTES FOR USE: ACR Lung-RADS Version 1.1 Assessment Categories Release Date: 2018 Category: Coded 0-4 bases on nodule(s) with highest degree of suspicion. Negative screen is defined as categories 1 and 2; a positive screen is defined as categories 3 and 4. Category 3 and 4A nodules that are unchanged on interval CT should be coded as category 2, and individuals returned to screening in 12 months. Category 4X: Category 3 or 4 nodules with additional imaging findings that increase the suspicion of lung cancer, such as spiculation, GGN that doubles in size in 1 year, enlarged lymph notes, etc. Category Modifiers: S (significant finding unrelated to lung cancer) Electronically Signed: Jean Pierre Trammell MD at 13:35 EDT ,
--- NOTE | 2024-02-09 08:00 | CT_ITS ---
STUDY: CT ABDOMEN WITH CONTRAST REASON FOR EXAM: Male, 68 years old. Adrenal mass RADIATION DOSAGE (If Supplied By Facility): CTDIvol = ( 14.60 ) mGy, DLP = ( 590.72 ) mGycm TECHNIQUE: Transaxial images were obtained post I.V. administration of IV 100mL [id number]-[id number], and oral contrast. Sagittal and coronal images were reconstructed. Individualized dose optimization techniques were used for this CT. COMPARISON: None. FINDINGS: Minimal degree of bibasilar dependent atelectasis. The visualized portions of the heart are within normal limits. There is decreased attenuation of the liver consistent with steatosis. Normal gallbladder and extrahepatic biliary system. Normal spleen. Normal pancreas. There is a small, circumscribed, smooth, low attenuation left adrenal mass, consistent with an adrenal adenoma. This measures 2.4 cm x 1 cm. Normal right adrenal gland. 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 Normal visualized stomach. Normal small intestine. Normal colon. The appendix is visualized and appears normal. There is diffuse atherosclerotic calcification of the abdominal aorta, without a demonstrated aneurysm. Normal inferior vena cava. Normal retroperitoneum. Normal abdominal wall. There are degenerative changes of the visualized lumbar spine. CT/Abdomen WITH IV Contrast IMPRESSION: Findings suggestive of a 2.4 cm x 1 cm adenoma in the left adrenal gland. Diffuse fatty infiltration of the liver. Horseshoe kidneys. Electronically Signed: Jean Pierre Trammell MD at 14:52 EDT ,
[2024-02-09 13:51] LABS: CREATININE FINGERSTICK < 1.0 mg/dL (0.70-1.30); EGFR FINGERSTICK > 60.0000 mL/min (>60)
== END | disposition home or self-care (01) ==
LOC: CT 07:45
PROVIDERS: PCP Family Medicine; Referring Provider Internal Medicine Pulmonary Disease; Visit Provider Internal Medicine Pulmonary Disease
DX: Z87.891 Personal history of nicotine dependence (principal)
CPT/HCPCS: 71271; 74160; Q9967

== ENCOUNTER → 2024-05-24 | Outpatient (CLI) | payer MEDICARE, SELFPAY ==
[2024-05-24 12:13] LABS: Absolute Lymphocyte Count 2.67 X10^3/uL (0.83-4.51); Absolute Neutrophil Count 4.6 X10^3/uL (2.0-7.7); Basophil# 0.04 X10^3/uL; Basophil% 0.5 % (0-1); Eosinophil# 0.12 X10^3/uL; Eosinophils% 1.5 % (0-5); Hemoglobin 13.9 g/dL (13.0-16.5); Lymphocyte # 2.67 X10^3/ul (0.83-4.51); Lymphocyte % 32.6 % (19-41); Mean Corp Hgb Conc 33.9 g/dL (32-36); Mean Corpuscular Hgb 32.8 pg (27.0-32.0); Mean Corpuscular Volume 96.7 fL (80-94); Mean Platelet Vol. 10.2 fl (6.2-12.0); Monocyte# 0.66 X10^3/uL; Monocyte% 8.1 % (0-10); NRBC Flagged by Analyzer 0 % (0-5); Neutrophil # 4.64 X10^3/uL (2.7-7.7); Neutrophil % 56.7 % (47-70); Platelet Count 249 K/mm3 (150-450); RBC Distribution Width CV 13.4 % (11.6-14.6); RBC Distribution Width SD 48.1 fl (35.1-43.9); Red Blood Count 4.24 M/mm3 (4.6-6.2); White Blood Count 8.2 K/mm3 (4.4-11.0)
[2024-05-24 12:37] LABS: ALB/GLOB Ratio 1.1 RATIO (0.9-2.4); AST(SGOT) 26 U/L (15-37); Alanine Aminotransfer ALT/SGPT 39 U/L (16-61); Albumin, Serum 3.8 g/dL (3.2-5.0); Alkaline Phosphatase 52 U/L (45-117); Anion Gap 5 (5-15); BUN 9 mg/dL (7-18); BUN/Creat Ratio 12.6 RATIO (10-20); Calcium,Total 9.7 mg/dL (8.5-10.1); Chloride 100 mmol/L (98-107); Cholesterol 104 mg/dL (200); Creatinine, Serum 0.72 mg/dL (0.70-1.30); EST Glomerular Filtration Rate 116 mL/min (>60); Est Glom Filt Rate - Afr Amer 140 mL/min (>60); Globulin 3.5 g/dL (2.2-4.2); Glucose 118 mg/dL (74-106); High Density Lipoprotein 34 mg/dL; Protein, Total 7.3 g/dL (6.4-8.2); Sodium Level 132 mmol/L (136-145); Triglycerides 185 mg/dL; Very Low Density Lipoprotein 37 mg/dL (5-40); Vitamin D,25 Hydroxy 59.7 ng/mL
[2024-05-24 13:34] LABS: Hemoglobin A1c 5.9 % (3.8-5.6)
== END | disposition home or self-care (01) ==
LOC: MFPLAB 10:21
PROVIDERS: PCP Family Medicine; Visit Provider Family Medicine
DX: E11.8 Type 2 diabetes mellitus with unspecified complications (principal); E55.9 Vitamin D deficiency, unspecified
CPT/HCPCS: 36415; 80053; 80061; 82306; 83036; 85025

== ENCOUNTER → 2024-05-31 | Outpatient (CLI) | payer MEDICARE, SELFPAY ==
[2024-05-31 10:10] LABS: Absolute Lymphocyte Count 2.78 X10^3/uL (0.83-4.51); Basophil# 0.05 X10^3/uL; Basophil% 0.6 % (0-1); Eosinophil# 0.15 X10^3/uL; Eosinophils% 1.7 % (0-5); Hematocrit 40.7 % (40-54); Lymphocyte # 2.78 X10^3/ul (0.83-4.51); Lymphocyte % 32.2 % (19-41); Mean Corp Hgb Conc 34.4 g/dL (32-36); Mean Corpuscular Hgb 33.3 pg (27.0-32.0); Mean Corpuscular Volume 96.9 fL (80-94); Mean Platelet Vol. 9.7 fl (6.2-12.0); Monocyte# 0.64 X10^3/uL; Monocyte% 7.4 % (0-10); NRBC Flagged by Analyzer 0 % (0-5); Neutrophil # 4.95 X10^3/uL (2.7-7.7); Neutrophil % 57.4 % (47-70); POSITIVE MORPHOLOGY YES; Platelet Count 234 K/mm3 (150-450); RBC Distribution Width CV 13.3 % (11.6-14.6); RBC Distribution Width SD 47.7 fl (35.1-43.9); White Blood Count 8.6 K/mm3 (4.4-11.0)
[2024-05-31 10:21] LABS: Differential Indicated SCAN CRITERIA MET
[2024-05-31 10:29] LABS: Hemoglobin A1c 5.9 % (3.8-5.6)
[2024-05-31 11:02] LABS: Differential Comment SCANNED
[2024-05-31 12:26] LABS: Vitamin D,25 Hydroxy 71.9 ng/mL
[2024-05-31 12:42] LABS: ALB/GLOB Ratio 1.1 RATIO (0.9-2.4); AST(SGOT) 26 U/L (15-37); Alanine Aminotransfer ALT/SGPT 38 U/L (16-61); Albumin, Serum 3.8 g/dL (3.2-5.0); Alkaline Phosphatase 51 U/L (45-117); Anion Gap 7 (5-15); BUN 14 mg/dL (7-18); BUN/Creat Ratio 18.5 RATIO (10-20); Calcium,Total 9.6 mg/dL (8.5-10.1); Chloride 102 mmol/L (98-107); Cholesterol 106 mg/dL (200); Creatinine, Serum 0.76 mg/dL (0.70-1.30); EST Glomerular Filtration Rate 108 mL/min (>60); Est Glom Filt Rate - Afr Amer 131 mL/min (>60); Globulin 3.4 g/dL (2.2-4.2); Glucose 108 mg/dL (74-106); High Density Lipoprotein 35 mg/dL; Potassium 4.3 mmol/L (3.5-5.1); Protein, Total 7.2 g/dL (6.4-8.2); Sodium Level 133 mmol/L (136-145); Triglycerides 154 mg/dL; Very Low Density Lipoprotein 31 mg/dL (5-40)
== END | disposition home or self-care (01) ==
LOC: MTLAB 09:07
PROVIDERS: PCP Family Medicine; Referring Provider Family Medicine; Visit Provider Family Medicine
DX: E11.8 Type 2 diabetes mellitus with unspecified complications (principal); M81.0 Age-related osteoporosis without current pathological fracture; E87.1 Hypo-osmolality and hyponatremia
CPT/HCPCS: 36415; 80053; 80061; 82306; 83036; 85025

== ENCOUNTER → 2024-09-25 | Outpatient (CLI) | payer MEDICARE, SELFPAY ==
[2024-09-25 12:12] LABS: Absolute Lymphocyte Count 2.58 X10^3/uL (0.83-4.51); Absolute Neutrophil Count 4.3 X10^3/uL (2.0-7.7); Basophil# 0.04 X10^3/uL; Basophil% 0.5 % (0-1); Eosinophils% 1.3 % (0-5); Hematocrit 42.8 % (40-54); Hemoglobin 14.6 g/dL (13.0-16.5); Lymphocyte # 2.58 X10^3/ul (0.83-4.51); Mean Corp Hgb Conc 34.1 g/dL (32-36); Mean Corpuscular Hgb 33.5 pg (27.0-32.0); Mean Corpuscular Volume 98.2 fL (80-94); Mean Platelet Vol. 9.6 fl (6.2-12.0); Monocyte# 0.56 X10^3/uL; Monocyte% 7.4 % (0-10); NRBC Flagged by Analyzer 0 % (0-5); Neutrophil # 4.27 X10^3/uL (2.7-7.7); Neutrophil % 56.3 % (47-70); Platelet Count 217 K/mm3 (150-450); RBC Distribution Width CV 12.8 % (11.6-14.6); RBC Distribution Width SD 46.2 fl (35.1-43.9); Red Blood Count 4.36 M/mm3 (4.6-6.2); White Blood Count 7.6 K/mm3 (4.4-11.0)
[2024-09-25 12:23] LABS: Vitamin D,25 Hydroxy 58.5 ng/mL
[2024-09-25 12:26] LABS: Hemoglobin A1c 5.9 % (3.8-5.6)
[2024-09-25 12:53] LABS: ALB/GLOB Ratio 1.2 RATIO (0.9-2.4); AST(SGOT) 21 U/L (15-37); Alanine Aminotransfer ALT/SGPT 47 U/L (16-61); Albumin, Serum 4.2 g/dL (3.2-5.0); Alkaline Phosphatase 54 U/L (45-117); Anion Gap 5 (5-15); BUN 14 mg/dL (7-18); BUN/Creat Ratio 17.2 RATIO (10-20); Calcium,Total 9.9 mg/dL (8.5-10.1); Chloride 98 mmol/L (98-107); Cholesterol 132 mg/dL (200); Creatinine, Serum 0.82 mg/dL (0.70-1.30); EST Glomerular Filtration Rate 99 mL/min (>60); Est Glom Filt Rate - Afr Amer 120 mL/min (>60); Globulin 3.5 g/dL (2.2-4.2); Glucose 113 mg/dL (74-106); High Density Lipoprotein 37 mg/dL; Potassium 4.4 mmol/L (3.5-5.1); Protein, Total 7.7 g/dL (6.4-8.2); Sodium Level 131 mmol/L (136-145); Triglycerides 145 mg/dL; Very Low Density Lipoprotein 29 mg/dL (5-40)
== END | disposition home or self-care (01) ==
LOC: MTLAB 10:34
PROVIDERS: PCP Family Medicine; Referring Provider Family Medicine; Visit Provider Family Medicine
DX: M81.0 Age-related osteoporosis without current pathological fracture (principal); E11.8 Type 2 diabetes mellitus with unspecified complications
CPT/HCPCS: 36415; 80053; 80061; 82306; 83036; 85025

== ENCOUNTER → 2025-01-23 | Outpatient (CLI) | payer MEDICARE, SELFPAY ==
[2025-01-23 12:46] LABS: Absolute Lymphocyte Count 2.63 X10^3/uL (0.83-4.51); Absolute Neutrophil Count 4.3 X10^3/uL (2.0-7.7); Basophil# 0.06 X10^3/uL; Basophil% 0.8 % (0-1); Eosinophil# 0.13 X10^3/uL; Eosinophils% 1.7 % (0-5); Hematocrit 40.1 % (40-54); Hemoglobin 13.9 g/dL (13.0-16.5); Lymphocyte # 2.63 X10^3/ul (0.83-4.51); Lymphocyte % 33.9 % (19-41); Mean Corp Hgb Conc 34.7 g/dL (32-36); Mean Platelet Vol. 9.6 fl (6.2-12.0); Monocyte# 0.62 X10^3/uL; NRBC Flagged by Analyzer 0 % (0-5); Neutrophil # 4.28 X10^3/uL (2.7-7.7); Neutrophil % 55.1 % (47-70); Platelet Count 237 K/mm3 (150-450); RBC Distribution Width CV 13.2 % (11.6-14.6); RBC Distribution Width SD 47.2 fl (35.1-43.9); Red Blood Count 4.09 M/mm3 (4.6-6.2); White Blood Count 7.8 K/mm3 (4.4-11.0)
[2025-01-23 15:20] LABS: Microalbumin,Random Urine < 12.0 mg/L (NO RANGE EST.); Microalbumin:Creatinine Ratio UNABLE TO CALCULATE mg/g CRE
[2025-01-23 16:34] LABS: Cholesterol 117 mg/dL (<=200); High Density Lipoprotein 40 mg/dL; Low Density Lipoprotein Calc. 48 mg/dL; Triglycerides 146 mg/dL; Very Low Density Lipoprotein 29 mg/dL (5-40); cholesterol:hdl ratio screen 2.93
[2025-01-23 17:59] LABS: Hemoglobin A1c 6.2 % (<=5.6)
[2025-01-23 18:03] LABS: ALB/GLOB Ratio 1.5 RATIO (0.9-2.4); AST(SGOT) 26 U/L (<=37); Alanine Aminotransfer ALT/SGPT 28 U/L (<=46); Albumin, Serum 4.4 g/dL (3.4-4.8); Alkaline Phosphatase 52 U/L (40-129); Anion Gap 12 (5-15); BUN 15 mg/dL (4-19); BUN/Creat Ratio 19.7 RATIO (10-20); Calcium,Total 10.2 mg/dL (7.6-11.0); Carbon Dioxide 24.8 mmol/L (21.0-32.0); Chloride 95 mmol/L (98-108); Creatinine, Serum 0.74 mg/dL (0.70-1.20); EST Glomerular Filtration Rate 98 (>60); Glucose 99 mg/dL (70-99); Potassium 4.3 mmol/L (3.3-5.1); Protein, Total 7.4 g/dL (5.9-8.4); Sodium Level 132 mmol/L (133-145); Total Bilirubin 0.45 mg/dL (0.00-1.30)
== END | disposition home or self-care (01) ==
LOC: MTLAB 10:14
PROVIDERS: PCP Family Medicine; Referring Provider Family Medicine; Visit Provider Family Medicine
DX: E11.8 Type 2 diabetes mellitus with unspecified complications (principal); Z12.5 Encounter for screening for malignant neoplasm of prostate
CPT/HCPCS: 36415; 80053; 80061; 82043; 82570; 83036; 85025

== ENCOUNTER → 2025-02-12 | Outpatient (CLI) | payer MEDICARE, SELFPAY ==
--- NOTE | 2025-02-12 14:56 | CT_ITS ---
PROCEDURE: LOW DOSE CT LUNG SCREENING 02/12/2025 REASON FOR EXAM: SMOKER Current smoker. 1 pack per day for 55 years. TECHNIQUE: Low Dose CT Lung screening without contrast. Coronal and Sagittal reconstruction series were provided. One or more dose reduction techniques were used (e.g., Automated exposure control, adjustment of the mA and/or kV according to patient size, use of iterative reconstruction technique). REFERENCE LINK: [employer] Lung-RADS RADIATION DOSE SUMMARY: CTDlvol: 2.39 mGy DLP: 82.5 mGycm COMPARISON: None. FINDINGS: PULMONARY NODULES: (Only nodules >3mm are reported) Nodules described below are on series 1 unless otherwise specified. Pulmonary Nodules: No suspicious pulmonary nodules. Hardware:None Lymph Nodes:No significant mediastinal or hilar lymph nodes. Heart and Vasculature:Coronary artery calcifications are noted.Atherosclerotic calcifications of the thoracic aorta. Thoracic aorta and pulmonary arteries have normal contours; noncontrast technique limits evaluation. Coronary Artery Calcifications: Present Lungs and Airways: Mild emphysematous changes are present. Scarring at the lung apices. Pleura:Unremarkable Upper Abdomen:Unremarkable Bones:Prior vertebroplasty of a mid dorsal vertebrae with loss of height. CT/Low Dose CT Lung Screening IMPRESSION: No suspicious pulmonary nodules seen. Coronary artery calcification (CAC) is is present Lung-RADS Category: 2 BENIGN (BASED ON IMAGING FEATURES OR INDOLENT BEHAVIOR). RECOMMEND 12-MONTH SCREENING LDCT. Other Significant Findings: None. Reading Location: [place] [address]
== END | disposition home or self-care (01) ==
LOC: CT 14:51
PROVIDERS: PCP Family Medicine; Referring Provider Family Medicine; Visit Provider Family Medicine
DX: F17.210 Nicotine dependence, cigarettes, uncomplicated (principal)
CPT/HCPCS: 71271

== ENCOUNTER → 2025-06-07 | Outpatient (CLI) | payer MEDICARE, SELFPAY ==
--- OUTSIDE RECORDS SUMMARY | 2025-06-07 07:46 | XMS RPT_ITS | CCD ---
Author Organization [facility] CliniSyar Care Team Providers Care Sales Marketing Manager Name Role Phone MD FAUSTINO GARCIA Attending UnavailMD FAUSTINO Major Primary Care Unavailalaina Avitia MD, Dr. Pito Calles Primary Care Provider Adore ADORNO, Dr. Pito Calles Attending Provider Adore ADORNO, Dr. Pito Calles Referring Provider [phone] Pito Avitia Referring Unavailable Pito Avitia Attending Unavailable Pito Avitia Primary Care Unavailable Pito Avitia Referring Unavailable Pito Avitia Attending Unavailable Pito Avitia Primary Care Unavailable Pito Avitia Referring Unavailable Pito Avitia Attending Unavailable Pito vAitia Primary Care Unavailable Pito Avitia Primary Care Unavailable Pito Avitia Referring Unavailable Pito Avitia Attending Unavailable Pito Avitia Primary Care Unavailable Pito Avitia Attending Unavailable Problems Problem Classification Problem Date Documented Da te Episodic/Chronic Diabetes mellitus with complications (1 source) Type 2 diabetes mellitus with unspecified complications; Translations: [Type 2 diabetes mellitus with unspecified complications] Onset: 01-29-2025 Chronic Osteoporosis (1 source) Age-related osteoporosis without current pathological fracture; Translations: [Age-related osteoporosis without current pathological fracture] Onset: 10-25-2024 Chronic Substance-related disorders (1 source) Nicotine dependence, cigarettes, uncomplicated; Translations: [Nicotine dependence, cigarettes, uncomplicated] Onset: 02-15-2025 Chronic Results Test Name Value Interpretation Reference Range Facility Low Dose CT Lung Screeningon 02-12-[address] Lung Screening [facility] Services [address] [place], [place] [id number] Low Dose CT Lung Screening MR#: [id number] Acct: [id number] Name: FOSTER WORTHINGTON Rep #: [id number] : 1955 M 69 From: Jean Pierre seymour MD PCP: Dr. Pito Avitia MD Status: REG CLI Study: Low Dose CT Lung Screening Date of Exam: 02/12 Exam# [id number] Ordering Dr: Pito Avitia MD PROCEDURE: LOW DOSE CT LUNG SCREENING 02/12/2025 REASON FOR EXAM: SMOKER Current smoker. 1 pack per day for 55 years. TECHNIQUE: Low Dose CT Lung screening without contrast. Coronal and Sagittal reconstruction series were provided. One or more dose reduction techniques were used (e.g., Automated exposure control, adjustment of the mA and/or kV according to patient size, use of iterative reconstruction technique). REFERENCE LINK: [place] Lung-RADS RADIATION DOSE SUMMARY: CTDlvol: 2.39 mGy DLP: 82.5 mGycm COMPARISON: None. FINDINGS: PULMONARY NODULES: (Only nodules >3mm are reported) Nodules described below are on series 1 unless otherwise specified. Pulmonary Nodules: No suspicious pulmonary nodules. Hardware:None Lymph Nodes:No significant mediastinal or hilar lymph nodes. Heart and Vasculature:Coronar y artery calcifications are noted.Atherosclerot ic calcifications of the thoracic aorta. Thoracic aorta and pulmonary arteries have normal contours; noncontrast technique limits evaluation. Coronary Artery Calcifications: Present Lungs and Airways: Mild emphysematous changes are present. Scarring at the lung apices. Pleura:Unremarkable Upper Abdomen:Unremarkabl e Bones:Prior vertebroplasty of a mid dorsal vertebrae with loss of height. CT/Low Dose CT Lung Screening IMPRESSION: No suspicious pulmonary nodules seen. Coronary artery calcification (CAC) is is present Lung-RADS Category: 2 BENIGN (BASED ON IMAGING FEATURES OR INDOLENT BEHAVIOR). RECOMMEND 12-MONTH SCREENING LDCT. Other Significant Findings: None. Reading Location: [facility] CC: Dr. Pito Avitia MD Campaign Coordinator: Signed Normal [facility] Absolute neutrophil countOrd ered By: Pito Avitia on 01-23-2025 Neutrophils (Bld) [#/Vol] 4.3 10*3/uL 2.0-7.7 [facility] Albumin DL <= 20 mg/L (U) [M ass/Vol]Ordered By: Pito Avitia on 01-23-2025 Urine Random Microalbumin < 12.0 mg/L NO RANGE EST. [facility] Anion gap in Serum or Plasma Ordered By: Pito Avitia on 01-23-2025 Anion gap [Moles/Vol] 12 mmol/L 5-15 [facility] BUN/creatinine ratioOrdered By: Pito Avitia on 01-23-2025 Urea nitrogen/Creatinine [Mass ratio] 19.7 mg/mg 10-20 [facility] Basophil percentageOrdered B y: Pito Avitia on 01-23-2025 Basophils/100 WBC (Bld) 0.8 % 0-1 [facility] Bilirubin, totalOrdered By: Pito Avitia on 01-23-2025 Bilirubin [Mass/Vol] 0.45 mg/dL 0.00-1.30 [facility] CBC W/Diff, Automatedon Absolute Lymph 2.63 X10 3/uL Normal 0.83-4.51 [facility] Comment on above: Order Comment: Order Date: 01/23/25Order Info: [id number] - CBCD Performed By: #### L 500.4100, L500.4050, L506.1000, L501.9985, L100.0100 #### [facility] [address] [place], [address] Absolute Neut 4.3 X10 3/uL Normal 2.0-7.7 [facility] Comment on above: Order Comment: Order Date: 01/23/25Order Info: [id number] - CBCD Performed By: #### L 500.4100, L500.4050, L506.1000, L501.9985, L100.0100 #### [facility] [address] [place], [address] Basophils/100 WBC (Bld) 0.8 % Normal 0-1 [facility] Comment on above: Order Comment: Order Date: 01/23/25Order Info: [id number] - CBCD Performed By: #### L 500.4100, L500.4050, L506.1000, L501.9985, L100.0100 #### [facility] [address] [place], [address] Eosinophils/100 WBC (Bld) 1.7 % Normal 0-5 [facility] Comment on above: Order Comment: Order Date: 01/23/25Order Info: [id number] - CBCD Performed By: #### L 500.4100, L500.4050, L506.1000, L501.9985, L100.0100 #### [facility] [address] [place], [address] Erythrocyte distribution width (RBC) [Ratio] 13.2 % Normal 11.6-14.6 [facility] Comment on above: Order Comment: Order Date: 01/23/25Order Info: [id number] - CBCD Performed By: #### L 500.4100, L500.4050, L506.1000, L501.9985, L100.0100 #### [facility] [address] [place], [address] Hematocrit (Bld) [Volume fraction] 40.1 % Normal 40-54 [facility] Comment on above: Order Comment: Order Date: 01/23/25Order Info: [id number] - CBCD Performed By: #### L 500.4100, L500.4050, L506.1000, L501.9985, L100.0100 #### [facility] [address] [place], [address] Hemoglobin (Bld) [Mass/Vol] 13.9 g/dL Normal 13.0-16.5 [facility] Comment on above: Order Comment: Order Date: 01/23/25Order Info: [id number] - CBCD Performed By: #### L 500.4100, L500.4050, L506.1000, L501.9985, L100.0100 #### [facility] [address] [place], [address] IG% 0.500 Normal 0.0-0.9 [facility] Comment on above: Order Comment: Order Date: 01/23/25Order Info: [id number] - CBCD Result Comment: IG% - Immature Granulocytes (promyelocytes, myelocytes and metamyelocytes) > 1% indicates that a LEFT SHIFT is Present. Performed By: #### L 500.4100, L500.4050, L506.1000, L501.9985, L100.0100 #### [facility] [address] [place], [address] Lymphocytes/100 WBC (Bld) 33.9 % Normal 19-41 [facility] Comment on above: Order Comment: Order Date: 01/23/25Order Info: [id number] - CBCD Performed By: #### L 500.4100, L500.4050, L506.1000, L501.9985, L100.0100 #### [facility] [address] [place], [address] MCH (RBC) [Entitic mass] 34.0 pg High 27.0-32.0 [facility] Comment on above: Order Comment: Order Date: 01/23/25Order Info: [id number] - CBCD Performed By: #### L 500.4100, L500.4050, L506.1000, L501.9985, L100.0100 #### [facility] [address] [place], [address] MCHC (RBC) [Mass/Vol] 34.7 g/dL Normal 32-36 [facility] Comment on above: Order Comment: Order Date: 01/23/25Order Info: [id number] - CBCD Performed By: #### L 500.4100, L500.4050, L506.1000, L501.9985, L100.0100 #### [facility] [address] [place], [address] MCV (RBC) [Entitic vol] 98.0 fL High 80-94 [facility] Comment on above: Order Comment: Order Date: 01/23/25Order Info: [id number] - CBCD Performed By: #### L 500.4100, L500.4050, L506.1000, L501.9985, L100.0100 #### [facility] [address] [place], [address] Monocytes/100 WBC (Bld) 8.0 % Normal 0-10 [facility] Comment on above: Order Comment: Order Date: 01/23/25Order Info: [id number] - CBCD Performed By: #### L 500.4100, L500.4050, L506.1000, L501.9985, L100.0100 #### [facility] [address] [place], [address] Neutrophils/100 WBC (Bld) 55.1 % Normal 47-70 [facility] Comment on above: Order Comment: Order Date: 01/23/25Order Info: [id number] - CBCD Performed By: #### L 500.4100, L500.4050, L506.1000, L501.9985, L100.0100 #### [facility] [address] [place], [address] Nucleated RBC (Bld) [#/Vol] 0 10*3/uL Normal 0-5 [facility] Comment on above: Order Comment: Order Date: 01/23/25Order Info: [id number] - CBCD Performed By: #### L 500.4100, L500.4050, L506.1000, L501.9985, L100.0100 #### [facility] [address] [place], [address] Platelet mean volume (Bld) [Entitic vol] 9.6 fL Normal 6.2-12.0 [facility] Comment on above: Order Comment: Order Date: 01/23/25Order Info: 0184-1 - CBCD Performed By: #### L 500.4100, L500.4050, L506.1000, L501.9985, L100.0100 #### [facility] [address] [place], [address] Platelets (Bld) [#/Vol] 237 10*3/uL Normal 150-450 [facility] Comment on above: Order Comment: Order Date: 01/23/25Order Info: [id number] - CBCD Performed By: #### L 500.4100, L500.4050, L506.1000, L501.9985, L100.0100 #### [facility] [address] [place], [address] RBC (Bld) [#/Vol] 4.09 10*6/uL Low 4.6-6.2 [facility] Comment on above: Order Comment: Order Date: 01/23/25Order Info: [id number] - CBCD Performed By: #### L 500.4100, L500.4050, L506.1000, L501.9985, L100.0100 #### [facility] [address] [place], [address] RDW SD 47.2 fl High 35.1-43.9 [facility] Comment on above: Order Comment: Order Date: 01/23/25Order Info: [id number] - CBCD Performed By: #### L 500.4100, L500.4050, L506.1000, L501.9985, L100.0100 #### [facility] [address] [place], [address] WBC (Bld) [#/Vol] 7.8 10*3/uL Normal 4.4-11.0 [facility] Comment on above: Order Comment: Order Date: 01/23/25Order Info: [id number] - CBCD Performed By: #### L 500.4100, L500.4050, L506.1000, L501.9985, L100.0100 #### [facility] [address] [place], [address] Calculated very low density lipoprotein (VLDL) cholesterol measurementOrdered By: Pito Avitia on 01-23-2025 VLDL Cholesterol 29 mg/dL 5-40 [facility] Carbon dioxide, total [Moles /volume] in Central venous bloodOrdered By: Pito Avitia on 01-23-2025 CO2 [Moles/Vol] 24.8 mmol/L 21.0-32.0 [facility] Chloride assayOrdered By: Shauna Avitia on 01-23-2025 Chloride [Moles/Vol] 95 mmol/L Low 98-108 [facility] Comprehensive Metabolic Prof ilon 01-23-2025 Albumin [Mass/Vol] 4.4 g/dL Normal 3.4-4.8 [facility] Comment on above: Order Comment: Order Date: 01/23/25Order Info: [id number] - CMPOrder Info: [id number] - LIPID Performed By: #### L 500.4100, L500.4050, L506.1000, L501.9985, L100.0100 #### [facility] [address] [facility] [place], [address] Albumin/Globulin [Mass ratio] 1.5 {ratio} Normal 0.9-2.4 [facility] Comment on above: Order Comment: Order Date: 01/23/25Order Info: [id number] - CMPOrder Info: [id number] - LIPID Performed By: #### L 500.4100, L500.4050, L506.1000, L501.9985, L100.0100 #### [facility] [address] [place], [address] ALK PHOS 52 U/L Normal 40-129 [facility] Comment on above: Order Comment: Order Date: 01/23/25Order Info: [id number] - CMPOrder Info: [id number] - LIPID Performed By: #### L 500.4100, L500.4050, L506.1000, L501.9985, L100.0100 #### [facility] [address] [place], [address] ALT [Catalytic activity/Vol] 28 U/L Normal <=46 [facility] Comment on above: Order Comment: Order Date: 01/23/25Order Info: [id number] - CMPOrder Info: [id number] - LIPID Performed By: #### L 500.4100, L500.4050, L506.1000, L501.9985, L100.0100 #### [facility] [address] [place], [address] AST [Catalytic activity/Vol] 26 U/L Normal <=37 [facility] Comment on above: Order Comment: Order Date: 01/23/25Order Info: [id number] - CMPOrder Info: [id number] - LIPID Performed By: #### L 500.4100, L500.4050, L506.1000, L501.9985, L100.0100 #### [facility] [address] [place], [address] Bilirubin [Mass/Vol] 0.45 mg/dL Normal 0.00-1.30 [facility] Comment on above: Order Comment: Order Date: 01/23/25Order Info: [id number] - CMPOrder Info: [id number] - LIPID Performed By: #### L 500.4100, L500.4050, L506.1000, L501.9985, L100.0100 #### [facility] [address] [place], [address] BUN/CRE 19.7 RATIO Normal 10-20 [facility] Comment on above: Order Comment: Order Date: 01/23/25Order Info: [id number] - CMPOrder Info: [id number] - LIPID Performed By: #### L 500.4100, L500.4050, L506.1000, L501.9985, L100.0100 #### [facility] [address] [place], [address] Calcium [Mass/Vol] 10.2 mg/dL Normal 7.6-11.0 [facility] Comment on above: Order Comment: Order Date: 01/23/25Order Info: [id number] - CMPOrder Info: [id number] - LIPID Performed By: #### L 500.4100, L500.4050, L506.1000, L501.9985, L100.0100 #### [facility] [address] [place], [address] Chloride [Moles/Vol] 95 mmol/L Low 98-108 [facility] Comment on above: Order Comment: Order Date: 01/23/25Order Info: [id number] - CMPOrder Info: [id number] - LIPID Performed By: #### L 500.4100, L500.4050, L506.1000, L501.9985, L100.0100 #### [facility] [address] [place] [place], [address] CO2 [Moles/Vol] 24.8 mmol/L Normal 21.0-32.0 [facility] Comment on above: Order Comment: Order Date: 01/23/25Order Info: [id number] - CMPOrder Info: [id number] - LIPID Performed By: #### L 500.4100, L500.4050, L506.1000, L501.9985, L100.0100 #### [facility] [address] [place], [address] Creatinine [Mass/Vol] 0.74 mg/dL Normal 0.70-1.20 [facility] Comment on above: Order Comment: Order Date: 01/23/25Order Info: [id number] - CMPOrder Info: [id number] - LIPID Performed By: #### L 500.4100, L500.4050, L506.1000, L501.9985, L100.0100 #### [facility] [address] [place], [address] GAP 12 Normal 5-15 [facility] Comment on above: Order Comment: Order Date: 01/23/25Order Info: [id number] - CMPOrder Info: [id number] - LIPID Performed By: #### L 500.4100, L500.4050, L506.1000, L501.9985, L100.0100 #### [facility] [address] [place], [address] GFR/1.73 sq M.predicted among non-blacks MDRD (S/P/Bld) [Vol rate/Area] 98 mL/min/{1.73_m2} Normal >60 [facility] Comment on above: Order Comment: Order Date: 01/23/25Order Info: [id number]- - CMPOrder Info: [id number] - LIPID Result Comment: mL/m in/1.73m2 CKD-EPI Creatinine Equation (2020) Performed By: #### L 500.4100, L500.4050, L506.1000, L501.9985, L100.0100 #### [facility] [address] [place], [address] Globulin (S) [Mass/Vol] 3.0 g/dL Normal 2.2-4.2 [facility] Comment on above: Order Comment: Order Date: 01/23/25Order Info: [id number] - CMPOrder Info: [id number] - LIPID Performed By: #### L 500.4100, L500.4050, L506.1000, L501.9985, L100.0100 #### [facility] [address] [place], [address] Glucose [Mass/Vol] 99 mg/dL Normal 70-99 [facility] Comment on above: Order Comment: Order Date: 01/23/25Order Info: [id number] - CMPOrder Info: [id number] - LIPID Performed By: #### L 500.4100, L500.4050, L506.1000, L501.9985, L100.0100 #### [facility] [address] [place], [address] Potassium [Moles/Vol] 4.3 mmol/L Normal 3.3-5.1 [facility] Comment on above: Order Comment: Order Date: 01/23/25Order Info: [id number] - CMPOrder Info: [id number] - LIPID Performed By: #### L 500.4100, L500.4050, L506.1000, L501.9985, L100.0100 #### [facility] [address] [place], [address] Sodium [Moles/Vol] 132 mmol/L Low 133-145 [facility] Comment on above: Order Comment: Order Date: 01/23/25Order Info: [id number] - CMPOrder Info: [id number] - LIPID Performed By: #### L 500.4100, L500.4050, L506.1000, L501.9985, L100.0100 #### [facility] [address] [place], [address] T PROT 7.4 g/dL Normal 5.9-8.4 [facility] Comment on above: Order Comment: Order Date: 01/23/25Order Info: [id number]- - CMPOrder Info: [id number] - LIPID Performed By: #### L 500.4100, L500.4050, L506.1000, L501.9985, L100.0100 #### [facility] [address] [place], [address] Urea nitrogen [Mass/Vol] 15 mg/dL Normal 4-19 [facility] Comment on above: Order Comment: Order Date: 01/23/25Order Info: [id number] - CMPOrder Info: [id number] - LIPID Performed By: #### L 500.4100, L500.4050, L506.1000, L501.9985, L100.0100 #### [facility] [address] [place], [address] Creatinine Unsp time (U) [Ma ss/Vol]Ordered By: Pito Avitia on 01-23-2025 Creatinine (U) [Mass/Vol] 75.10 mg/dL 39.00-259 .00 [facility] Eosinophil percentageOrdered By: Pito Avitia on 01-23-2025 Eosinophils/100 WBC (Bld) 1.7 % 0-5 [facility] Erythrocyte distribution wid th (RBC) [Ratio]Ordered By: Pito Avitia on 01-23-2025 Erythrocyte distribution width (RBC) [Entitic vol] 47.2 fL High 35.1-43.9 [facility] Erythrocyte distribution wid th ratioOrdered By: Pito Avitia on 01-23-2025 Erythrocyte distribution width (RBC) [Ratio] 13.2 % 11.6-14.6 [facility] GFR/1.73 sq M.predicted nichole g non-blacks MDRD (S/P/Bld) [Vol rate/Area]Ordered By: Pito Avitia on 01-23-2025 Estimated GFR (MDRD) Non-Af Amer 98 >60 [facility] Comment on above: mL/min/1.73m2 CKD-EP I Creatinine Equation (2020) Hematocrit Auto (Bld) [Volum e fraction]Ordered By: Pito Avtiia on 01-23-2025 Hematocrit (Bld) [Volume fraction] 40.1 % 40-54 [facility] Hemoglobin A1con 01-23-2025 HbA1c (Bld) [Mass fraction] 6.2 % Normal <=5.6 [facility] Comment on above: Order Comment: Order Date: 01/23/25Order Info: [id number] - A1C Performed By: #### L 500.4100, L500.4050, L506.1000, L501.9985, L100.0100 #### [facility] [address] [place], [address] Hemoglobin A1c percentageOrd ered By: Pito Avitia on 01-23-2025 HbA1c (Bld) [Mass fraction] 6.2 % >5.7 [facility] Hemoglobin measurementOrdere d By: Pito Avitia on 01-23-2025 Hemoglobin (Bld) [Mass/Vol] 13.9 g/dL 13.0-16.5 [facility] Immature granulocytes/100 WB C Auto (Bld)Ordered By: Pito Avitia on 01-23-2025 Immature granulocytes/100 WBC (Bld) 0.500 % 0.0-0.9 [facility] Comment on above: IG% - Immature Granu locytes (promyelocytes, myelocytes and metamyelocytes) > 1% indicates that a LEFT SHIFT is Present. LDL calc ser/plasOrdered By: Pito Avitia on 01-23-2025 LDL Cholesterol, Calculated 48 mg/dL [facility] Comment on above: Onpyapysne=118-295 m g/dL & Higher Lnnv=397 mg/dL or greater Laboratory - Chemistry and C hemistry - challengeOrdered By: Pito Avitia on 01-23-2025 AST [Catalytic activity/Vol] 26 U/L <38 [facility] Lipid Profileon 01-23-2025 CHOL:HDL 2.93 Normal [facility] Comment on above: Order Comment: Order Date: 01/23/25Order Info: [id number] - CMPOrder Info: [id number] - LIPID Performed By: #### L 500.4100, L500.4050, L506.1000, L501.9985, L100.0100 #### [facility] [address] [place], [place], [address] Cholesterol [Mass/Vol] 117 mg/dL Normal <=200 [facility] Comment on above: Order Comment: Order Date: 01/23/25Order Info: [id number] - CMPOrder Info: [id number] - LIPID Result Comment: Chol esterol level, Desirable <200 mg/dL Borderline high cholesterol 200-239 mg/dL High cholesterol >=240 mg/dL Recommendations of the NCEP Adult Treatment Panel for the following risk-cutoff thresholds for the [place] population. Performed By: #### L 500.4100, L500.4050, L506.1000, L501.9985, L100.0100 #### [facility] [address] [place], [address] Cholesterol in HDL [Mass/Vol] 40 mg/dL Normal [facility] Comment on above: Order Comment: Order Date: 01/23/25Order Info: [id number] - CMPOrder Info: [id number] - LIPID Result Comment: Martha onal Cholesterol Education Program (NCEP) guidelines: <40 mg/dL: Low HDL-cholesterol (major risk factor for CHD) >= 60 mg/dL: High HDL-cholesterol (negative risk factor for CHD) HDL-cholesterol is affected by a number of factors, e.g. smoking, exercise, hormones, sex and age. Performed By: #### L 500.4100, L500.4050, L506.1000, L501.9985, L100.0100 #### [facility] [address] [place], [address] Cholesterol in LDL [Mass/Vol] 48 mg/dL Normal [facility] Comment on above: Order Comment: Order Date: 01/23/25Order Info: [id number] - CMPOrder Info: [id number] - LIPID Result Comment: Bord gwrlxu=667-237 mg/dL Higher Rqdh=325 mg/dL or greater Performed By: #### L 500.4100, L500.4050, L506.1000, L501.9985, L100.0100 #### [facility] [address] [place], [address] Cholesterol in VLDL [Mass/Vol] 29 mg/dL Normal 5-40 [facility] Comment on above: Order Comment: Order Date: 01/23/25Order Info: [id number] - CMPOrder Info: [id number] - LIPID Performed By: #### L 500.4100, L500.4050, L506.1000, L501.9985, L100.0100 #### [facility] [address] [place], [address] Triglyceride [Mass/Vol] 146 mg/dL Normal [facility] Comment on above: Order Comment: Order Date: 01/23/25Order Info: [id number] - CMPOrder Info: [id number] - LIPID Result Comment: The drugs N-Acetylcysteine and Metamizole may falsely depress this assay. Normal range: <150 mg/dL Borderline High: 150-199 mg/dL High: 200-499 mg/dL Very High: >500 mg/dL Performed By: #### L 500.4100, L500.4050, L506.1000, L501.9985, L100.0100 #### [facility] [address] [place], [place], [address] Lymphocytes Auto (Unsp spec) [#/Vol]Ordered By: Pito Avitia on 01-23-2025 Lymphocytes (Bld) [#/Vol] 2.63 10*3/uL 0.83-4.5 1 [facility] Lymphocytes/100 WBC Auto (Un sp spec)Ordered By: Pito Avitia on 01-23-2025 Lymphocytes/100 WBC (Bld) 33.9 % 19-41 [facility] MCV (mean corpuscular volume ) determinationOrdered By: Pito Avitia on 01-23-2025 MCV (RBC) [Entitic vol] 98.0 fL High 80-94 [facility] Mean corpuscular hemoglobin (MCH) determinationOrdered By: Pito Avitia on 01-23-2025 MCH (RBC) [Entitic mass] 34.0 pg High 27.0-32.0 [facility] Mean corpuscular hemoglobin concentration (MCHC) determinationOrdered By: Pito Avitia on 01-23-2025 MCHC (RBC) [Mass/Vol] 34.7 g/dL 32-36 [facility] Mean platelet volume determi nationOrdered By: Pito Avitia on 01-23-2025 Platelet mean volume (Bld) [Entitic vol] 9.6 fL 6.2-12.0 [facility] Microalb:Creat Ratio,Random URon 01-23-2025 Creatinine [Mass/Vol] 75.10 mg/dL Normal 39.00-259.00 [facility] Comment on above: Order Comment: Order Date: 01/23/25Order Info: [id number] - MIALB Performed By: #### L 500.4100, L500.4050, L506.1000, L501.9985, L100.0100 #### [facility] [address] [place], [address] MALB:CREAT UNABLE TO CALCULATE Normal [facility] Comment on above: Order Comment: Order Date: 01/23/25Order Info: [id number] - MIALB Performed By: #### L 500.4100, L500.4050, L506.1000, L501.9985, L100.0100 #### [facility] [address] [place], [address] MICROALBUMIN,UR < 12.0 Normal NO RANGE EST. [facility] Comment on above: Order Comment: Order Date: 01/23/25Order Info: [id number] - MIALB Performed By: #### L 500.4100, L500.4050, L506.1000, L501.9985, L100.0100 #### [facility] [address] [place], [address] Microalbumin/creat ratio urO rdered By: Pito Avitia on 01-23-2025 Urine Microalbumin/Creatinine Ratio UNABLE TO CALCULATE mg/g CRE [facility] Monocyte percentageOrdered B y: Pito Avitia on 01-23-2025 Monocytes/100 WBC (Bld) 8.0 % 0-10 [facility] Neutrophil percentageOrdered By: Pito Avitia on 01-23-2025 Neutrophils/100 WBC (Bld) 55.1 % 47-70 [facility] Nucleated red blood cell per centageOrdered By: Pito Avitia on 01-23-2025 Nucleated RBC/100 WBC (Bld) [Ratio] 0 % 0-5 [facility] Platelet countOrdered By: Shauna Avitia on 01-23-2025 Platelets (Bld) [#/Vol] 237 10*3/uL 150-450 [facility] Potassium (Unsp spec) [Mass/ Vol]Ordered By: Pito Avitia on 01-23-2025 Potassium [Moles/Vol] 4.3 mmol/L 3.3-5.1 [facility] RBC Auto (Bld) [#/Vol]Ordere d By: Pito Avitia on 01-23-2025 RBC (Bld) [#/Vol] 4.09 10*6/uL Low 4.6-6.2 [facility] Screening total cholesterol/ high density lipoprotein (HDL) cholesterol ratioOrdered By: Pito Avitia on 01-23-2025 Cholesterol.total/Cholest brunilda in HDL [Mass ratio] 2.93 {ratio} [facility] Serum creatinine measurement (mass/volume)Ordered By: Pito Avitia on 01-23-2025 Creatinine [Mass/Vol] 0.74 mg/dL 0.70-1.20 [facility] Serum globulin measurementOr dered By: Pito Avitia on 01-23-2025 Globulin (S) [Mass/Vol] 3.0 g/dL 2.2-4.2 [facility] Serum glucose measurement (m ass/volume)Ordered By: Pito Avitia on 01-23-2025 Glucose [Mass/Vol] 99 mg/dL 70-99 [facility] Serum or plasma alanine romero otransferase (ALT) measurementOrdered By: Pito Avitia on 01-23-2025 ALT [Catalytic activity/Vol] 28 U/L <47 [facility] Serum or plasma albumin kamaljit urement (mass/volume)Ordered By: Pito Avitia on 01-23-2025 Albumin [Mass/Vol] 4.4 g/dL 3.4-4.8 [facility] Serum or plasma albumin/glob ulin mass ratioOrdered By: Pito Avitia on 01-23-2025 Albumin/Globulin [Mass ratio] 1.5 {ratio} 0.9-2.4 [facility] Serum or plasma alkaline esmer sphatase measurementOrdered By: Pito Avitia on 01-23-2025 ALP [Catalytic activity/Vol] 52 U/L 40-129 [facility] Serum or plasma calcium kamaljit urement (mass/volume)Ordered By: Pito Avitia on 01-23-2025 Calcium [Mass/Vol] 10.2 mg/dL 7.6-11.0 [facility] Serum or plasma cholesterol in HDL measurement (mass/volume)Ordered By: Pito Avitia on 01-23-2025 Cholesterol in HDL [Mass/Vol] 40 mg/dL >40 [facility] Comment on above: National Cholesterol Education Program (NCEP) guidelines:<40 mg/dL: Low HDL-cholesterol (major risk factor for CHD)>= 60 mg/dL: High HDL-cholesterol (negative risk factor for CHD)HDL-cholesterol is affected by a number of factors, e.g. smoking, exercise, hormones, sex and age. Serum or plasma cholesterol measurement (mass/volume)Ordered By: Pito Avitia on 01-23-2025 Cholesterol [Mass/Vol] 117 mg/dL <201 [facility] Comment on above: Cholesterol level, D esirable <200 mg/dLBorderline high cholesterol 200-239 mg/dLHigh cholesterol >=240 mg/dLRecommendations of the NCEP Adult Treatment Panel for the following risk-cutoff thresholds for the [place] population. Serum or plasma urea nitroge n measurement (mass/volume)Ordered By: Pito Avitia on 01-23-2025 Urea nitrogen [Mass/Vol] 15 mg/dL 4-19 [facility] Sodium levelOrdered By: Pito Avitia on 01-23-2025 Sodium [Moles/Vol] 132 mmol/L Low 133-145 [facility] Total proteinOrdered By: Torey Avitia on 01-23-2025 Protein [Mass/Vol] 7.4 g/dL 5.9-8.4 [facility] Triglycerides measurementOrd ered By: Pito Avitia on 01-23-2025 Triglyceride [Mass/Vol] 146 mg/dL <199 [facility] Comment on above: The drugs N-Acetylcy steine and Metamizole may falsely depress this assay. Normal range: <150 mg/dLBorderline High: 150-199 mg/dLHigh: 200-499 mg/dLVery High: >500 mg/dL White blood cell (WBC) count Ordered By: Pito Avitia on 01-23-2025 WBC (Bld) [#/Vol] 7.8 10*3/uL 4.4-11.0 [facility] CBC W/Diff, Automatedon 12-0 Absolute Lymph 2.58 X10 3/uL Normal 0.83-4.51 [facility] Comment on above: Performed By: #### L 500.4100, L500.4050, L506.1000, L501.9985, L100.0100 #### [facility] [address] [place], [address] Absolute Neut 4.3 X10 3/uL Normal 2.0-7.7 [facility] Comment on above: Performed By: #### L 500.4100, L500.4050, L506.1000, L501.9985, L100.0100 #### [facility] [address] [place], [address] Basophils/100 WBC (Bld) 0.5 % Normal 0-1 [facility] Comment on above: Performed By: #### L 500.4100, L500.4050, L506.1000, L501.9985, L100.0100 #### [facility] [address] [place], [address] Eosinophils/100 WBC (Bld) 1.3 % Normal 0-5 [facility] Comment on above: Performed By: #### L 500.4100, L500.4050, L506.1000, L501.9985, L100.0100 #### [facility] [address] [place], [address] Erythrocyte distribution width (RBC) [Ratio] 12.8 % Normal 11.6-14.6 [facility] Comment on above: Performed By: #### L 500.4100, L500.4050, L506.1000, L501.9985, L100.0100 #### [facility] [address] [place], [address] Hematocrit (Bld) [Volume fraction] 42.8 % Normal 40-54 [facility] Comment on above: Performed By: #### L 500.4100, L500.4050, L506.1000, L501.9985, L100.0100 #### [facility] [address] [place], [address] Hemoglobin (Bld) [Mass/Vol] 14.6 g/dL Normal 13.0-16.5 [facility] Comment on above: Performed By: #### L 500.4100, L500.4050, L506.1000, L501.9985, L100.0100 #### [facility] [address] [place], [address] IG% 0.500 Normal 0.0-0.9 [facility] Comment on above: Result Comment: IG% - Immature Granulocytes (promyelocytes, myelocytes and metamyelocytes) > 1% indicates that a LEFT SHIFT is Present. Performed By: #### L 500.4100, L500.4050, L506.1000, L501.9985, L100.0100 #### [facility] [address] [place], [address] Lymphocytes/100 WBC (Bld) 34.0 % Normal 19-41 [facility] Comment on above: Performed By: #### L 500.4100, L500.4050, L506.1000, L501.9985, L100.0100 #### [facility] [address] [place], [address] MCH (RBC) [Entitic mass] 33.5 pg High 27.0-32.0 [facility] Comment on above: Performed By: #### L 500.4100, L500.4050, L506.1000, L501.9985, L100.0100 #### [facility] [address] [place], [address] MCHC (RBC) [Mass/Vol] 34.1 g/dL Normal 32-36 [facility] Comment on above: Performed By: #### L 500.4100, L500.4050, L506.1000, L501.9985, L100.0100 #### [facility] [address] [place], [address] MCV (RBC) [Entitic vol] 98.2 fL High 80-94 [facility] Comment on above: Performed By: #### L 500.4100, L500.4050, L506.1000, L501.9985, L100.0100 #### [facility] [address] [place], [address] Monocytes/100 WBC (Bld) 7.4 % Normal 0-10 [facility] Comment on above: Performed By: #### L 500.4100, L500.4050, L506.1000, L501.9985, L100.0100 #### [facility] [address] [place], [address] Neutrophils/100 WBC (Bld) 56.3 % Normal 47-70 [facility] Comment on above: Performed By: #### L 500.4100, L500.4050, L506.1000, L501.9985, L100.0100 #### [facility] [address] [place], [address] Nucleated RBC (Bld) [#/Vol] 0 10*3/uL Normal 0-5 [facility] Comment on above: Performed By: #### L 500.4100, L500.4050, L506.1000, L501.9985, L100.0100 #### [facility] [address] [place], [address] Platelet mean volume (Bld) [Entitic vol] 9.6 fL Normal 6.2-12.0 [facility] Comment on above: Performed By: #### L 500.4100, L500.4050, L506.1000, L501.9985, L100.0100 #### [facility] [address] [place], [address] Platelets (Bld) [#/Vol] 217 10*3/uL Normal 150-450 [facility] Comment on above: Performed By: #### L 500.4100, L500.4050, L506.1000, L501.9985, L100.0100 #### [facility] [address] [place], [address] RBC (Bld) [#/Vol] 4.36 10*6/uL Low 4.6-6.2 [facility] Comment on above: Performed By: #### L 500.4100, L500.4050, L506.1000, L501.9985, L100.0100 #### [facility] [address] [place], [address] RDW SD 46.2 fl High 35.1-43.9 [facility] Comment on above: Performed By: #### L 500.4100, L500.4050, L506.1000, L501.9985, L100.0100 #### [facility] [address] [place], [address] WBC (Bld) [#/Vol] 7.6 10*3/uL Normal 4.4-11.0 [facility] Comment on above: Performed By: #### L 500.4100, L500.4050, L506.1000, L501.9985, L100.0100 #### [facility] [address] [place], [address] Comprehensive Metabolic Prof ilon 09-25-2024 Albumin [Mass/Vol] 4.2 g/dL Normal 3.2-5.0 [facility] Comment on above: Performed By: #### L 500.4100, L500.4050, L506.1000, L501.9985, L100.0100 #### [facility] [address] [place], [address] Albumin/Globulin [Mass ratio] 1.2 {ratio} Normal 0.9-2.4 [facility] Comment on above: Performed By: #### L 500.4100, L500.4050, L506.1000, L501.9985, L100.0100 #### [facility] [address] [place], [address] ALK P 54 U/L Normal 45-117 [facility] Comment on above: Performed By: #### L 500.4100, L500.4050, L506.1000, L501.9985, L100.0100 #### [facility] [address] [place], [address] ALT [Catalytic activity/Vol] 47 U/L Normal 16-61 [facility] Comment on above: Performed By: #### L 500.4100, L500.4050, L506.1000, L501.9985, L100.0100 #### [facility] [address] [place], [address] AST [Catalytic activity/Vol] 21 U/L Normal 15-37 [facility] Comment on above: Performed By: #### L 500.4100, L500.4050, L506.1000, L501.9985, L100.0100 #### [facility] [address] [place], [address] Bilirubin [Mass/Vol] 0.50 mg/dL Normal 0.20-1.00 [facility] Comment on above: Result Comment: For patients on eltrombopag therapy, use of Dimension [place] TBIL is not recommended. Performed By: #### L 500.4100, L500.4050, L506.1000, L501.9985, L100.0100 #### [facility] [address] [place], [address] BUN/CRE 17.2 RATIO Normal 10-20 [facility] Comment on above: Performed By: #### L 500.4100, L500.4050, L506.1000, L501.9985, L100.0100 #### [facility] [address] [place], [address] CA,Total 9.9 mg/dL Normal 8.5-10.1 [facility] Comment on above: Performed By: #### L 500.4100, L500.4050, L506.1000, L501.9985, L100.0100 #### [facility] [address] [place], [address] Chloride [Moles/Vol] 98 mmol/L Normal 98-107 [facility] Comment on above: Performed By: #### L 500.4100, L500.4050, L506.1000, L501.9985, L100.0100 #### [facility] [address] [place], [address] CO2 [Moles/Vol] 28.0 mmol/L Normal 21.0-32.0 [facility] Comment on above: Performed By: #### L 500.4100, L500.4050, L506.1000, L501.9985, L100.0100 #### [facility] [address] [place], [address] Creatinine [Mass/Vol] 0.82 mg/dL Normal 0.70-1.30 [facility] Comment on above: Result Comment: The validity of the calculated GFR GFRAA in patients over 70 years has not been determined. Clinical correlation is essential. Performed By: #### L 500.4100, L500.4050, L506.1000, L501.9985, L100.0100 #### [facility] [address] [place], [address] EST GFR - AA 120 mL/min Normal >60 [facility] Comment on above: Result Comment: Afri can [place] GFR Calc Performed By: #### L 500.4100, L500.4050, L506.1000, L501.9985, L100.0100 #### [facility] [address] [place], [address] GAP 5 Normal 5-15 [facility] Comment on above: Performed By: #### L 500.4100, L500.4050, L506.1000, L501.9985, L100.0100 #### [facility] [address] [place], [address] GFR/1.73 sq M.predicted among non-blacks MDRD (S/P/Bld) [Vol rate/Area] 99 mL/min/{1.73_m2} Normal >60 [facility] Comment on above: Result Comment: Non- GFR Calc Performed By: #### L 500.4100, L500.4050, L506.1000, L501.9985, L100.0100 #### [facility] [address] [place], [address] Globulin (S) [Mass/Vol] 3.5 g/dL Normal 2.2-4.2 [facility] Comment on above: Performed By: #### L 500.4100, L500.4050, L506.1000, L501.9985, L100.0100 #### [facility] [address] [place], [address] Glucose [Mass/Vol] 113 mg/dL High 74-106 [facility] Comment on above: Result Comment: Fast ing Glucose result from 100 to 125 mg/dL suggests IMPAIRED HOMEOSTASIS per A.D.A. criteria. Performed By: #### L 500.4100, L500.4050, L506.1000, L501.9985, L100.0100 #### [facility] [address] [place], [address] Potassium [Moles/Vol] 4.4 mmol/L Normal 3.5-5.1 [facility] Comment on above: Performed By: #### L 500.4100, L500.4050, L506.1000, L501.9985, L100.0100 #### [facility] [address] [place], [address] Sodium [Moles/Vol] 131 mmol/L Low 136-145 [facility] Comment on above: Performed By: #### L 500.4100, L500.4050, L506.1000, L501.9985, L100.0100 #### [facility] [address] [place], [address] T PROT 7.7 g/dL Normal 6.4-8.2 [facility] Comment on above: Performed By: #### L 500.4100, L500.4050, L506.1000, L501.9985, L100.0100 #### [facility] [address] [place], [address] Urea nitrogen [Mass/Vol] 14 mg/dL Normal 7-18 [facility] Comment on above: Performed By: #### L 500.4100, L500.4050, L506.1000, L501.9985, L100.0100 #### [facility] [address] [place], [address] Hemoglobin A1con 09-25-2024 HbA1c (Bld) [Mass fraction] 5.9 % High 3.8-5.6 [facility] Comment on above: Result Comment: Norm al < 5.7 % Prediabetic 5.7 - 6.4 % Diabetic >or= 6.5 % Please note range changes. Performed By: #### L 500.4100, L500.4050, L506.1000, L501.9985, L100.0100 #### [facility] [address] [place], [address] Lipid Profileon 09-25-2024 Cholesterol [Mass/Vol] 132 mg/dL Normal 200 [facility] Comment on above: Result Comment: <200 mg/dL Desirable 200-240 mg/dL Borderline >240 mg/dL High Risk Performed By: #### L 500.4100, L500.4050, L506.1000, L501.9985, L100.0100 #### [facility] [address] [place], [address] Cholesterol in HDL [Mass/Vol] 37 mg/dL Low [facility] Comment on above: Result Comment: The drugs N-Acetylcysteine and Metamizole may falsely depress this assay. Reference Range HDL <40 mg/dL Low HDL Cholesterol HDL >or= 60 mg/dL High HDL Cholesterol Performed By: #### L 500.4100, L500.4050, L506.1000, L501.9985, L100.0100 #### [facility] [address] [place], [address] Cholesterol in LDL [Mass/Vol] 66 mg/dL Normal 0-130 [facility] Comment on above: Performed By: #### L 500.4100, L500.4050, L506.1000, L501.9985, L100.0100 #### [facility] [address] [place], [address] Cholesterol in VLDL [Mass/Vol] 29 mg/dL Normal 5-40 [facility] Comment on above: Performed By: #### L 500.4100, L500.4050, L506.1000, L501.9985, L100.0100 #### [facility] [address] [place], [address] Triglyceride [Mass/Vol] 145 mg/dL Normal [facility] Comment on above: Result Comment: The drugs N-Acetylcysteine and Metamizole may falsely depress this assay. Serum Triglycerides Reference Interval Normal <150 mg/dL Borderline high 150 - 199 mg/dL High 200 - 499 mg/dL Very High > or = 500 mg/dL Performed By: #### L 500.4100, L500.4050, L506.1000, L501.9985, L100.0100 #### [facility] [address] [place], [address] Vitamin D,25 Hydroxyon 09-25 Vitamin D 25-OH 58.5 ng/mL Normal [facility] Comment on above: Result Comment: Yasmin min D 25(OH) Status Range Deficiency <20 ng/mL (50nmol/L) Insufficiency 20 - 30 ng/mL (50 - 75 nmol/L) Sufficiency 30 - 100 ng/mL (75 - 250 nmol/L) Toxicity >100 ng/mL (>250 nmol/L) Performed By: #### L 500.4100, L500.4050, L506.1000, L501.9985, L100.0100 #### [facility] [address] [place], [address] CBC W/Diff, Automatedon 08 SMEAR COMMENT SCANNED Normal [facility] Comment on above: Order Comment: Order Date: 05/24/24Order Info: [id number] - CBCD Result Comment: AUTO DIFF OK Performed By: #### L 500.4100, L500.4050, L506.1000, L501.9985, L100.0100 #### [facility] [address] [place], [address] Comprehensive Metabolic Prof ilon 05-31-2024 Albumin [Mass/Vol] 3.8 g/dL Normal 3.2-5.0 [facility] Comment on above: Order Comment: Order Date: 05/28/24Order Info: [id number] - BMPOrder Date: 05/24/24Order Info: [id number] - CMPOrder Info: [id number] - LIPID Performed By: #### L 500.4100, L500.4050, L506.1000, L501.9985, L100.0100 #### [facility] [address] [place], [address] Albumin/Globulin [Mass ratio] 1.1 {ratio} Normal 0.9-2.4 [facility] Comment on above: Order Comment: Order Date: 05/28/24Order Info: [id number] - BMPOrder Date: 05/24/24Order Info: 07- - CMPOrder Info: [id number] - LIPID Performed By: #### L 500.4100, L500.4050, L506.1000, L501.9985, L100.0100 #### [facility] [address] [place], [address] ALK P 51 U/L Normal 45-117 [facility] Comment on above: Order Comment: Order Date: 05/28/24Order Info: 666- - BMPOrder Date: 05/24/24Order Info: 07 - CMPOrder Info: [id number] - LIPID Performed By: #### L 500.4100, L500.4050, L506.1000, L501.9985, L100.0100 #### [facility] [address] [place], [address] ALT [Catalytic activity/Vol] 38 U/L Normal 16-61 [facility] Comment on above: Order Comment: Order Date: 05/28/24Order Info: 06- - BMPOrder Date: 05/24/24Order Info: [id number] - CMPOrder Info: [id number] - LIPID Performed By: #### L 500.4100, L500.4050, L506.1000, L501.9985, L100.0100 #### [facility] [address] [place], [address] AST [Catalytic activity/Vol] 26 U/L Normal 15-37 [facility] Comment on above: Order Comment: Order Date: 05/28/24Order Info: [id number] - BMPOrder Date: 05/24/24Order Info: 07- - CMPOrder Info: [id number] - LIPID Performed By: #### L 500.4100, L500.4050, L506.1000, L501.9985, L100.0100 #### [facility] [address] [place], [address] Bilirubin [Mass/Vol] 0.50 mg/dL Normal 0.20-1.00 [facility] Comment on above: Order Comment: Order Date: 05/28/24Order Info: [id number] - BMPOrder Date: 05/24/24Order Info: [id number] - CMPOrder Info: [id number] - LIPID Result Comment: For patients on eltrombopag therapy, use of Dimension [place] TBIL is not recommended. Performed By: #### L 500.4100, L500.4050, L506.1000, L501.9985, L100.0100 #### [facility] [address] [place], [address] BUN/CRE 18.5 RATIO Normal 10-20 [facility] Comment on above: Order Comment: Order Date: 05/28/24Order Info: [id number] - BMPOrder Date: 05/24/24Order Info: [id number] - CMPOrder Info: [id number] - LIPID Performed By: #### L 500.4100, L500.4050, L506.1000, L501.9985, L100.0100 #### [facility] [address] [place], [address] CA,Total 9.6 mg/dL Normal 8.5-10.1 [facility] Comment on above: Order Comment: Order Date: 05/28/24Order Info: [id number] - BMPOrder Date: 05/24/24Order Info: [id number] - CMPOrder Info: [id number] - LIPID Performed By: #### L 500.4100, L500.4050, L506.1000, L501.9985, L100.0100 #### [facility] [address] [place], [address] Chloride [Moles/Vol] 102 mmol/L Normal 98-107 [facility] Comment on above: Order Comment: Order Date: 05/28/24Order Info: [id number] - BMPOrder Date: 05/24/24Order Info: [id number] - CMPOrder Info: [id number] - LIPID Performed By: #### L 500.4100, L500.4050, L506.1000, L501.9985, L100.0100 #### [facility] [address] [place], [address] CO2 [Moles/Vol] 24.0 mmol/L Normal 21.0-32.0 [facility] Comment on above: Order Comment: Order Date: 05/28/24Order Info: [id number] - BMPOrder Date: 05/24/24Order Info: [id number] - CMPOrder Info: - LIPID Performed By: #### L 500.4100, L500.4050, L506.1000, L501.9985, L100.0100 #### [facility] [address] [place], [address] Creatinine [Mass/Vol] 0.76 mg/dL Normal 0.70-1.30 [facility] Comment on above: Order Comment: Order Date: 05/28/24Order Info: [id number] - BMPOrder Date: 05/24/24Order Info: [id number] - CMPOrder Info: - LIPID Result Comment: The validity of the calculated GFR GFRAA in patients over 70 years has not been determined. Clinical correlation is essential. Performed By: #### L 500.4100, L500.4050, L506.1000, L501.9985, L100.0100 #### [facility] [address] [place], [address] EST GFR - AA 131 mL/min Normal >60 [facility] Comment on above: Order Comment: Order Date: 05/28/24Order Info: [id number] - BMPOrder Date: 05/24/24Order Info: [id number] - CMPOrder Info: [id number] - LIPID Result Comment: Afri can [place] GFR Calc Performed By: #### L 500.4100, L500.4050, L506.1000, L501.9985, L100.0100 #### [facility] [address] [place], [address] GAP 7 Normal 5-15 [facility] Comment on above: Order Comment: Order Date: 05/28/24Order Info: [id number]- - BMPOrder Date: 05/24/24Order Info: [id number] - CMPOrder Info: [id number] - LIPID Performed By: #### L 500.4100, L500.4050, L506.1000, L501.9985, L100.0100 #### [facility] [address] [place], [address] GFR/1.73 sq M.predicted among non-blacks MDRD (S/P/Bld) [Vol rate/Area] 108 mL/min/{1.73_m2} Normal >60 [facility] Comment on above: Order Comment: Order Date: 05/28/24Order Info: 666- - BMPOrder Date: 05/24/24Order Info: 07-1 - CMPOrder Info: [id number] - LIPID Result Comment: Non- GFR Calc Performed By: #### L 500.4100, L500.4050, L506.1000, L501.9985, L100.0100 #### [facility] [address] [place], [address] Globulin (S) [Mass/Vol] 3.4 g/dL Normal 2.2-4.2 [facility] Comment on above: Order Comment: Order Date: 05/28/24Order Info: 666- - BMPOrder Date: 05/24/24Order Info: [id number] - CMPOrder Info: [id number] - LIPID Performed By: #### L 500.4100, L500.4050, L506.1000, L501.9985, L100.0100 #### [facility] [address] [place], [address] Glucose [Mass/Vol] 108 mg/dL High 74-106 [facility] Comment on above: Order Comment: Order Date: 05/28/24Order Info: [id number] - BMPOrder Date: 05/24/24Order Info: [id number] - CMPOrder Info: [id number] - LIPID Result Comment: Fast ing Glucose result from 100 to 125 mg/dL suggests IMPAIRED HOMEOSTASIS per A.D.A. criteria. Performed By: #### L 500.4100, L500.4050, L506.1000, L501.9985, L100.0100 #### [facility] [address] [place], [address] Potassium [Moles/Vol] 4.3 mmol/L Normal 3.5-5.1 [facility] Comment on above: Order Comment: Order Date: 05/28/24Order Info: [id number] - BMPOrder Date: 05/24/24Order Info: [id number] - CMPOrder Info: [id number] - LIPID Performed By: #### L 500.4100, L500.4050, L506.1000, L501.9985, L100.0100 #### [facility] [address] [place], [address] Sodium [Moles/Vol] 133 mmol/L Low 136-145 [facility] Comment on above: Order Comment: Order Date: 05/28/24Order Info: [id number] - BMPOrder Date: 05/24/24Order Info: [id number] - CMPOrder Info: [id number] - LIPID Performed By: #### L 500.4100, L500.4050, L506.1000, L501.9985, L100.0100 #### [facility] [address] [place], [address] T PROT 7.2 g/dL Normal 6.4-8.2 [facility] Comment on above: Order Comment: Order Date: 05/28/24Order Info: [id number]- - BMPOrder Date: 05/24/24Order Info: [id number] - CMPOrder Info: [id number] - LIPID Performed By: #### L 500.4100, L500.4050, L506.1000, L501.9985, L100.0100 #### [facility] [address] [place], [address] Urea nitrogen [Mass/Vol] 14 mg/dL Normal 7-18 [facility] Comment on above: Order Comment: Order Date: 05/28/24Order Info: [id number] - BMPOrder Date: 05/24/24Order Info: [id number] - CMPOrder Info: [id number] - LIPID Performed By: #### L 500.4100, L500.4050, L506.1000, L501.9985, L100.0100 #### [facility] [address] [place], [address] Hemoglobin A1con 05-31-2024 HbA1c (Bld) [Mass fraction] 5.9 % High 3.8-5.6 [facility] Comment on above: Order Comment: Order Date: 05/24/24Order Info: [id number] - A1C Result Comment: Norm al < 5.7 % Prediabetic 5.7 - 6.4 % Diabetic >or= 6.5 % Please note range changes. Performed By: #### L 500.4100, L500.4050, L506.1000, L501.9985, L100.0100 #### [facility] [address] [place], [address] Lipid Profileon 05-31-2024 Cholesterol [Mass/Vol] 106 mg/dL Normal 200 [facility] Comment on above: Order Comment: Order Date: 05/28/24Order Info: [id number] - BMPOrder Date: 05/24/24Order Info: [id number] - CMPOrder Info: [id number] - LIPID Result Comment: <200 mg/dL Desirable 200-240 mg/dL Borderline >240 mg/dL High Risk Performed By: #### L 500.4100, L500.4050, L506.1000, L501.9985, L100.0100 #### [facility] [address] [place], [address] Cholesterol in HDL [Mass/Vol] 35 mg/dL Low [facility] Comment on above: Order Comment: Order Date: 05/28/24Order Info: [id number] - BMPOrder Date: 05/24/24Order Info: [id number] - CMPOrder Info: [id number] - LIPID Result Comment: The drugs N-Acetylcysteine and Metamizole may falsely depress this assay. Reference Range HDL <40 mg/dL Low HDL Cholesterol HDL >or= 60 mg/dL High HDL Cholesterol Performed By: #### L 500.4100, L500.4050, L506.1000, L501.9985, L100.0100 #### [facility] [address] [place], [address] Cholesterol in LDL [Mass/Vol] 40 mg/dL Normal 0-130 [facility] Comment on above: Order Comment: Order Date: 05/28/24Order Info: [id number] - BMPOrder Date: 05/24/24Order Info: [id number] - CMPOrder Info: [id number] - LIPID Performed By: #### L 500.4100, L500.4050, L506.1000, L501.9985, L100.0100 #### [facility] [address] [place], [address] Cholesterol in VLDL [Mass/Vol] 31 mg/dL Normal 5-40 [facility] Comment on above: Order Comment: Order Date: 05/28/24Order Info: [id number] - BMPOrder Date: 05/24/24Order Info: [id number] - CMPOrder Info: [id number] - LIPID Performed By: #### L 500.4100, L500.4050, L506.1000, L501.9985, L100.0100 #### [facility] [address] [place], [address] Triglyceride [Mass/Vol] 154 mg/dL Normal [facility] Comment on above: Order Comment: Order Date: 05/28/24Order Info: [id number] - BMPOrder Date: 05/24/24Order Info: [id number] - CMPOrder Info: [id number] - LIPID Result Comment: The drugs N-Acetylcysteine and Metamizole may falsely depress this assay. Serum Triglycerides Reference Interval Normal <150 mg/dL Borderline high 150 - 199 mg/dL High 200 - 499 mg/dL Very High > or = 500 mg/dL Performed By: #### L 500.4100, L500.4050, L506.1000, L501.9985, L100.0100 #### [facility] [address] [place], [address] Vitamin D,25 Hydroxyon 05-31 Vitamin D 25-OH 71.9 ng/mL Normal [facility] Comment on above: Order Comment: Order Date: 05/24/24Order Info: [id number] - VITD25 Result Comment: Yasmin min D 25(OH) Status Range Deficiency <20 ng/mL (50nmol/L) Insufficiency 20 - 30 ng/mL (50 - 75 nmol/L) Sufficiency 30 - 100 ng/mL (75 - 250 nmol/L) Toxicity >100 ng/mL (>250 nmol/L) Performed By: #### L 500.4100, L500.4050, L506.1000, L501.9985, L100.0100 #### [facility] [address] [place], [address] CBC W/Diff, Automatedon 08-0 Absolute Lymph 2.67 X10 3/uL Normal 0.83-4.51 [facility] Comment on above: Order Comment: Order Date: 01/31/24 Order Info: [id number] - CBCD Performed By: #### L 100.0100, L500.4050, L500.4100, L506.1000, L501.9985 #### [facility] [address] [place], [address] Absolute Neut 4.6 X10 3/uL Normal 2.0-7.7 [facility] Comment on above: Order Comment: Order Date: 01/31/24 Order Info: [id number] - CBCD Performed By: #### L 100.0100, L500.4050, L500.4100, L506.1000, L501.9985 #### [facility] [address] [place], [address] Basophils/100 WBC (Bld) 0.5 % Normal 0-1 [facility] Comment on above: Order Comment: Order Date: 01/31/24 Order Info: [id number] - CBCD Performed By: #### L 100.0100, L500.4050, L500.4100, L506.1000, L501.9985 #### [facility] [address] [place], [address] Eosinophils/100 WBC (Bld) 1.5 % Normal 0-5 [facility] Comment on above: Order Comment: Order Date: 01/31/24 Order Info: [id number] - CBCD Performed By: #### L 100.0100, L500.4050, L500.4100, L506.1000, L501.9985 #### [facility] [address] [facility] [place], [address] Erythrocyte distribution width (RBC) [Ratio] 13.4 % Normal 11.6-14.6 [facility] Comment on above: Order Comment: Order Date: 01/31/24 Order Info: [id number] - CBCD Performed By: #### L 100.0100, L500.4050, L500.4100, L506.1000, L501.9985 #### [facility] [address] [place], [address] Hematocrit (Bld) [Volume fraction] 41.0 % Normal 40-54 [facility] Comment on above: Order Comment: Order Date: 01/31/24 Order Info: [id number] - CBCD Performed By: #### L 100.0100, L500.4050, L500.4100, L506.1000, L501.9985 #### [facility] [address] [place], [address] Hemoglobin (Bld) [Mass/Vol] 13.9 g/dL Normal 13.0-16.5 [facility] Comment on above: Order Comment: Order Date: 01/31/24 Order Info: [id number] - CBCD Performed By: #### L 100.0100, L500.4050, L500.4100, L506.1000, L501.9985 #### [facility] [address] [place], [address] IG% 0.600 Normal 0.0-0.9 [facility] Comment on above: Order Comment: Order Date: 01/31/24 Order Info: [id number] - CBCD Result Comment: IG% - Immature Granulocytes (promyelocytes, myelocytes and metamyelocytes) > 1% indicates that a LEFT SHIFT is Present. Performed By: #### L 100.0100, L500.4050, L500.4100, L506.1000, L501.9985 #### [facility] [address] [place], [address] Lymphocytes/100 WBC (Bld) 32.6 % Normal 19-41 [facility] Comment on above: Order Comment: Order Date: 01/31/24 Order Info: [id number] - CBCD Performed By: #### L 100.0100, L500.4050, L500.4100, L506.1000, L501.9985 #### [facility] [address] [place], [address] MCH (RBC) [Entitic mass] 32.8 pg High 27.0-32.0 [facility] Comment on above: Order Comment: Order Date: 01/31/24 Order Info: [id number] - CBCD Performed By: #### L 100.0100, L500.4050, L500.4100, L506.1000, L501.9985 #### [facility] [address] [place], [address] MCHC (RBC) [Mass/Vol] 33.9 g/dL Normal 32-36 [facility] Comment on above: Order Comment: Order Date: 01/31/24 Order Info: [id number] - CBCD Performed By: #### L 100.0100, L500.4050, L500.4100, L506.1000, L501.9985 #### [facility] [address] [place], [address] MCV (RBC) [Entitic vol] 96.7 fL High 80-94 [facility] Comment on above: Order Comment: Order Date: 01/31/24 Order Info: [id number]- - CBCD Performed By: #### L 100.0100, L500.4050, L500.4100, L506.1000, L501.9985 #### [facility] [address] [place], [address] Monocytes/100 WBC (Bld) 8.1 % Normal 0-10 [facility] Comment on above: Order Comment: Order Date: 01/31/24 Order Info: [id number]- - CBCD Performed By: #### L 100.0100, L500.4050, L500.4100, L506.1000, L501.9985 #### [facility] [address] [place], [address] Neutrophils/100 WBC (Bld) 56.7 % Normal 47-70 [facility] Comment on above: Order Comment: Order Date: 01/31/24 Order Info: [id number] - CBCD Performed By: #### L 100.0100, L500.4050, L500.4100, L506.1000, L501.9985 #### [facility] [address] [place], [address] Nucleated RBC (Bld) [#/Vol] 0 10*3/uL Normal 0-5 [facility] Comment on above: Order Comment: Order Date: 01/31/24 Order Info: [id number] - CBCD Performed By: #### L 100.0100, L500.4050, L500.4100, L506.1000, L501.9985 #### [facility] [address] [place], [address] Platelet mean volume (Bld) [Entitic vol] 10.2 fL Normal 6.2-12.0 [facility] Comment on above: Order Comment: Order Date: 01/31/24 Order Info: [id number] - CBCD Performed By: #### L 100.0100, L500.4050, L500.4100, L506.1000, L501.9985 #### [facility] [address] [place], [address] Platelets (Bld) [#/Vol] 249 10*3/uL Normal 150-450 [facility] Comment on above: Order Comment: Order Date: 01/31/24 Order Info: [id number]- - CBCD Performed By: #### L 100.0100, L500.4050, L500.4100, L506.1000, L501.9985 #### [facility] [address] [place], [address] RBC (Bld) [#/Vol] 4.24 10*6/uL Low 4.6-6.2 [facility] Comment on above: Order Comment: Order Date: 01/31/24 Order Info: [id number] - CBCD Performed By: #### L 100.0100, L500.4050, L500.4100, L506.1000, L501.9985 #### [facility] [address] [place], [address] RDW SD 48.1 fl High 35.1-43.9 [facility] Comment on above: Order Comment: Order Date: 01/31/24 Order Info: [id number] - CBCD Performed By: #### L 100.0100, L500.4050, L500.4100, L506.1000, L501.9985 #### [facility] [address] [place], [address] WBC (Bld) [#/Vol] 8.2 10*3/uL Normal 4.4-11.0 [facility] Comment on above: Order Comment: Order Date: 01/31/24 Order Info: [id number] - CBCD Performed By: #### L 100.0100, L500.4050, L500.4100, L506.1000, L501.9985 #### [facility] [address] [place], [address] Comprehensive Metabolic Prof nhon 05-24-2024 Albumin [Mass/Vol] 3.8 g/dL Normal 3.2-5.0 [facility] Comment on above: Order Comment: Order Date: 01/31/24 Order Info: [id number] - CMP Order Info: [id number] - LIPID Performed By: #### L 100.0100, L500.4050, L500.4100, L506.1000, L501.9985 #### [facility] [address] [place], [address] Albumin/Globulin [Mass ratio] 1.1 {ratio} Normal 0.9-2.4 [facility] Comment on above: Order Comment: Order Date: 01/31/24 Order Info: [id number] - CMP Order Info: [id number] - LIPID Performed By: #### L 100.0100, L500.4050, L500.4100, L506.1000, L501.9985 #### [facility] [address] [place], [address] ALK P 52 U/L Normal 45-117 [facility] Comment on above: Order Comment: Order Date: 01/31/24 Order Info: [id number] - CMP Order Info: [id number] - LIPID Performed By: #### L 100.0100, L500.4050, L500.4100, L506.1000, L501.9985 #### [facility] [address] [place], [address] ALT [Catalytic activity/Vol] 39 U/L Normal 16-61 [facility] Comment on above: Order Comment: Order Date: 01/31/24 Order Info: [id number] - CMP Order Info: [id number] - LIPID Performed By: #### L 100.0100, L500.4050, L500.4100, L506.1000, L501.9985 #### [facility] [address] [place], [address] AST [Catalytic activity/Vol] 26 U/L Normal 15-37 [facility] Comment on above: Order Comment: Order Date: 01/31/24 Order Info: [id number] - CMP Order Info: [id number] - LIPID Performed By: #### L 100.0100, L500.4050, L500.4100, L506.1000, L501.9985 #### [facility] [address] [place], [address] Bilirubin [Mass/Vol] 0.50 mg/dL Normal 0.20-1.00 [facility] Comment on above: Order Comment: Order Date: 01/31/24 Order Info: 0786- - CMP Order Info: [id number] - LIPID Result Comment: For patients on eltrombopag therapy, use of Dimension [place] TBIL is not recommended. Performed By: #### L 100.0100, L500.4050, L500.4100, L506.1000, L501.9985 #### [facility] [address] [place], [address] BUN/CRE 12.6 RATIO Normal 10-20 [facility] Comment on above: Order Comment: Order Date: 01/31/24 Order Info: [id number] - CMP Order Info: [id number] - LIPID Performed By: #### L 100.0100, L500.4050, L500.4100, L506.1000, L501.9985 #### [facility] [address] [place], [address] CA,Total 9.7 mg/dL Normal 8.5-10.1 [facility] Comment on above: Order Comment: Order Date: 01/31/24 Order Info: 0786- - CMP Order Info: [id number] - LIPID Performed By: #### L 100.0100, L500.4050, L500.4100, L506.1000, L501.9985 #### [facility] [address] [place], [address] Chloride [Moles/Vol] 100 mmol/L Normal 98-107 [facility] Comment on above: Order Comment: Order Date: 01/31/24 Order Info: 0786 - CMP Order Info: [id number] - LIPID Performed By: #### L 100.0100, L500.4050, L500.4100, L506.1000, L501.9985 #### [facility] [address] [place], [address] CO2 [Moles/Vol] 27.0 mmol/L Normal 21.0-32.0 [facility] Comment on above: Order Comment: Order Date: 01/31/24 Order Info: 0786- - CMP Order Info: [id number] - LIPID Performed By: #### L 100.0100, L500.4050, L500.4100, L506.1000, L501.9985 #### [facility] [address] [place], [address] Creatinine [Mass/Vol] 0.72 mg/dL Normal 0.70-1.30 [facility] Comment on above: Order Comment: Order Date: 01/31/24 Order Info: 0786- - CMP Order Info: [id number] - LIPID Result Comment: The validity of the calculated GFR GFRAA in patients over 70 years has not been determined. Clinical correlation is essential. Performed By: #### L 100.0100, L500.4050, L500.4100, L506.1000, L501.9985 #### [facility] [address] [place], [address] EST GFR - AA 140 mL/min Normal >60 [facility] Comment on above: Order Comment: Order Date: 01/31/24 Order Info: [id number] - CMP Order Info: [id number] - LIPID Result Comment: Afri can [place] GFR Calc Performed By: #### L 100.0100, L500.4050, L500.4100, L506.1000, L501.9985 #### [facility] [address] [place], [address] GAP 5 Normal 5-15 [facility] Comment on above: Order Comment: Order Date: 01/31/24 Order Info: [id number] - CMP Order Info: [id number] - LIPID Performed By: #### L 100.0100, L500.4050, L500.4100, L506.1000, L501.9985 #### [facility] [address] [place], [address] GFR/1.73 sq M.predicted among non-blacks MDRD (S/P/Bld) [Vol rate/Area] 116 mL/min/{1.73_m2} Normal >60 [facility] Comment on above: Order Comment: Order Date: 01/31/24 Order Info: [id number] - CMP Order Info: [id number] - LIPID Result Comment: Non- GFR Calc Performed By: #### L 100.0100, L500.4050, L500.4100, L506.1000, L501.9985 #### [facility] [address] [place], [address] Globulin (S) [Mass/Vol] 3.5 g/dL Normal 2.2-4.2 [facility] Comment on above: Order Comment: Order Date: 01/31/24 Order Info: [id number] - CMP Order Info: [id number] - LIPID Performed By: #### L 100.0100, L500.4050, L500.4100, L506.1000, L501.9985 #### [facility] [address] [place], [address] Glucose [Mass/Vol] 118 mg/dL High 74-106 [facility] Comment on above: Order Comment: Order Date: 01/31/24 Order Info: [id number] - CMP Order Info: [id number] - LIPID Result Comment: Fast ing Glucose result from 100 to 125 mg/dL suggests IMPAIRED HOMEOSTASIS per A.D.A. criteria. Performed By: #### L 100.0100, L500.4050, L500.4100, L506.1000, L501.9985 #### [facility] [address] [place], [address] Potassium [Moles/Vol] 4.0 mmol/L Normal 3.5-5.1 [facility] Comment on above: Order Comment: Order Date: 01/31/24 Order Info: [id number] - CMP Order Info: [id number] - LIPID Performed By: #### L 100.0100, L500.4050, L500.4100, L506.1000, L501.9985 #### [facility] [address] [place], [address] Sodium [Moles/Vol] 132 mmol/L Low 136-145 [facility] Comment on above: Order Comment: Order Date: 01/31/24 Order Info: [id number] - CMP Order Info: [id number] - LIPID Performed By: #### L 100.0100, L500.4050, L500.4100, L506.1000, L501.9985 #### [facility] [address] [place], [address] T PROT 7.3 g/dL Normal 6.4-8.2 [facility] Comment on above: Order Comment: Order Date: 01/31/24 Order Info: [id number] - CMP Order Info: [id number] - LIPID Performed By: #### L 100.0100, L500.4050, L500.4100, L506.1000, L501.9985 #### [facility] [address] [place], [address] Urea nitrogen [Mass/Vol] 9 mg/dL Normal 7-18 [facility] Comment on above: Order Comment: Order Date: 01/31/24 Order Info: [id number] - CMP Order Info: [id number] - LIPID Performed By: #### L 100.0100, L500.4050, L500.4100, L506.1000, L501.9985 #### [facility] [address] [place], [address] Hemoglobin A1con 05-24-2024 HbA1c (Bld) [Mass fraction] 5.9 % High 3.8-5.6 [facility] Comment on above: Order Comment: Order Date: 01/31/24 Order Info: [id number] - A1C Result Comment: Norm al < 5.7 % Prediabetic 5.7 - 6.4 % Diabetic >or= 6.5 % Please note range changes. Performed By: #### L 100.0100, L500.4050, L500.4100, L506.1000, L501.9985 #### [facility] [address] [place], [address] Lipid Profileon 05-24-2024 Cholesterol [Mass/Vol] 104 mg/dL Normal 200 [facility] Comment on above: Order Comment: Order Date: 01/31/24 Order Info: [id number] - CMP Order Info: [id number] - LIPID Result Comment: <200 mg/dL Desirable 200-240 mg/dL Borderline >240 mg/dL High Risk Performed By: #### L 100.0100, L500.4050, L500.4100, L506.1000, L501.9985 #### [facility] [address] [place], [address] Cholesterol in HDL [Mass/Vol] 34 mg/dL Low [facility] Comment on above: Order Comment: Order Date: 01/31/24 Order Info: [id number] - CMP Order Info: [id number] - LIPID Result Comment: The drugs N-Acetylcysteine and Metamizole may falsely depress this assay. Reference Range HDL <40 mg/dL Low HDL Cholesterol HDL >or= 60 mg/dL High HDL Cholesterol Performed By: #### L 100.0100, L500.4050, L500.4100, L506.1000, L501.9985 #### [facility] [address] [place], [address] Cholesterol in LDL [Mass/Vol] 33 mg/dL Normal 0-130 [facility] Comment on above: Order Comment: Order Date: 01/31/24 Order Info: 0786- - CMP Order Info: [id number] - LIPID Performed By: #### L 100.0100, L500.4050, L500.4100, L506.1000, L501.9985 #### [facility] [address] [place], [address] Cholesterol in VLDL [Mass/Vol] 37 mg/dL Normal 5-40 [facility] Comment on above: Order Comment: Order Date: 01/31/24 Order Info: [id number] - CMP Order Info: [id number] - LIPID Performed By: #### L 100.0100, L500.4050, L500.4100, L506.1000, L501.9985 #### [facility] [address] [place], [address] Triglyceride [Mass/Vol] 185 mg/dL Normal [facility] Comment on above: Order Comment: Order Date: 01/31/24 Order Info: [id number]- - CMP Order Info: [id number] - LIPID Result Comment: The drugs N-Acetylcysteine and Metamizole may falsely depress this assay. Serum Triglycerides Reference Interval Normal <150 mg/dL Borderline high 150 - 199 mg/dL High 200 - 499 mg/dL Very High > or = 500 mg/dL Performed By: #### L 100.0100, L500.4050, L500.4100, L506.1000, L501.9985 #### [facility] [address] [place], [place], [address] Vitamin D,25 Hydroxyon 05-24 Vitamin D 25-OH 59.7 ng/mL Normal [facility] Comment on above: Order Comment: Order Date: 01/31/24 Order Info: [id number] - VITD25 Result Comment: Yasmin min D 25(OH) Status Range Deficiency <20 ng/mL (50nmol/L) Insufficiency 20 - 30 ng/mL (50 - 75 nmol/L) Sufficiency 30 - 100 ng/mL (75 - 250 nmol/L) Toxicity >100 ng/mL (>250 nmol/L) Performed By: #### L 100.0100, L500.4050, L500.4100, L506.1000, L501.9985 #### [facility] [address] [place], [place], [address] Basophil percentageOrdered B y: Juan Briones on 02-09-2024 Basophil percentage < 1.0 mg/dL 0.70-1.30 [facility] No Panel InformationOrdered By: Juan Briones on 02-09-2024 Bedside Estimated GFR (eGFR) > 60.0000 mL/min >60 [facility] Absolute lymphocyte countOrd ered By: Pito Avitia on 01-31-2024 Lymphocytes Auto (Unsp spec) [#/Vol] 1.81 10*3/uL 0.83-4.51 [facility] Automated lymphocyte count a s percentage of total leukocytesOrdered By: Pito Avitia on 01-31-2024 Lymphocytes/100 WBC Auto (Unsp spec) 25.2 % 19-41 [facility] Basophil percentageOrdered B y: Pito Avitia on 01-31-2024 Basophil percentage 0 SEEN /hpf 0-5 [facility] Basophils/100 WBC (Bld) 0.6 % 0-1 [facility] Bilirubin [Mass/Vol] 0.70 mg/dL 0.20-1.00 [facility] Comment on above: For patients on eltr ombopag therapy, use of Dimension [place] TBIL is not recommended. Chloride [Moles/Vol] 100 mmol/L 98-107 [facility] Cholesterol [Mass/Vol] 104 mg/dL <200 [facility] Comment on above: <200 mg/dL Desirable 200-240 mg/dL Borderline >240 mg/dL High Risk Eosinophils/100 WBC (Bld) 1.1 % 0-5 [facility] Glucose [Mass/Vol] 166 mg/dL 74-106 [facility] Comment on above: Fasting Glucose resu lt greater than or equal to 126 mg/dL suggests DIABETES MELLITUS per A.D.A. criteria. Hemoglobin (Bld) [Mass/Vol] 12.9 g/dL 13.0-16.5 [facility] Monocytes/100 WBC (Bld) 8.5 % 0-10 [facility] Neutrophils (Bld) [#/Vol] 4.6 10*3/uL 2.0-7.7 [facility] Neutrophils/100 WBC (Bld) 63.9 % 47-70 [facility] Potassium [Moles/Vol] 3.9 mmol/L 3.5-5.1 [facility] Protein [Mass/Vol] 6.9 g/dL 6.4-8.2 [facility] Sodium [Moles/Vol] 132 mmol/L 136-145 [facility] Triglyceride [Mass/Vol] 108 mg/dL <199 [facility] Comment on above: The drugs N-Acetylcy steine and Metamizole may falsely depress this assay.Serum Triglycerides Reference Interval Normal <150 mg/dL Borderline high 150 - 199 mg/dL High 200 - 499 mg/dL Very High > or = 500 mg/dL WBC (Bld) [#/Vol] 7.2 10*3/uL 4.4-11.0 [facility] Bilirubin Test strip Ql (U)O rdered By: Pito Avitia on 01-31-2024 Bilirubin Ql (U) Negative Negative [facility] Determination of erythrocyte mean corpuscular volume (MCV)Ordered By: Pito Avitia on 01-31-2024 MCV (RBC) [Entitic vol] 100.0 fL 80-94 [facility] Erythrocyte distribution wid th ratioOrdered By: Pito Avitia on 01-31-2024 Erythrocyte distribution width (RBC) [Ratio] 13.2 % 11.6-14.6 [facility] Erythrocyte distribution wid th standard deviationOrdered By: Pito Avitia on 01-31-2024 Erythrocyte distribution width (RBC) [Entitic vol] 48.7 fL 35.1-43.9 [facility] Hematocrit Auto (Bld) [Volum e fraction]Ordered By: Pito Avitia on 01-31-2024 Hematocrit (Bld) [Volume fraction] 37.1 % 40-54 [facility] Immature granulocytes/100 WB C Auto (Bld)Ordered By: Pito Avitia on 01-31-2024 Immature granulocytes/100 WBC (Bld) 0.700 % 0.0-0.9 [facility] Comment on above: IG% - Immature Granu locytes (promyelocytes, myelocytes and metamyelocytes) > 1% indicates that a LEFT SHIFT is Present. Ketones Test strip Ql (U)Ord ered By: Pito Avitia on 01-31-2024 Ketones Ql (U) Negative Negative [facility] - Chemistry and C hemistry - challengeOrdered By: Pito Avitia on 01-31-2024 Albumin/Globulin [Mass ratio] 1.2 {ratio} 0.9-2.4 [facility] ALP [Catalytic activity/Vol] 48 U/L 45-117 [facility] ALT [Catalytic activity/Vol] 46 U/L 16-61 [facility] Cholesterol in HDL [Mass/Vol] 34 mg/dL >40 [facility] Comment on above: The drugs N-Acetylcy steine and Metamizole may falsely depress this assay. Reference Range HDL <40 mg/dL Low HDL Cholesterol HDL >or= 60 mg/dL High HDL Cholesterol Cholesterol in LDL [Mass/Vol] 48 mg/dL 0-130 [facility] CO2 [Moles/Vol] 24.0 mmol/L 21.0-32.0 [facility] Globulin (S) [Mass/Vol] 3.2 g/dL 2.2-4.2 [facility] Urea nitrogen/Creatinine [Mass ratio] 18.4 mg/mg 10-20 [facility] - Hematology and Cell countsOrdered By: Pito Avitia on 01-31-2024 MCH (RBC) [Entitic mass] 34.8 pg 27.0-32.0 [facility] MCHC (RBC) [Mass/Vol] 34.8 g/dL 32-36 [facility] Nucleated RBC/100 WBC (Bld) [Ratio] 0 % 0-5 [facility] Platelet mean volume (Bld) [Entitic vol] 9.3 fL 6.2-12.0 [facility] Platelets (Bld) [#/Vol] 244 10*3/uL 150-450 [facility] Mucus LM Ql (Urine sed)Order ed By: Pito Avitia on 01-31-2024 Mucus Ql (Urine sed) 0 SEEN /hpf [facility] Nitrite Test strip Ql (U)Ord ered By: Pito Avitia on 01-31-2024 Nitrite Ql (U) Negative Negative [facility] No Panel InformationOrdered By: Pito Avitia on 01-31-2024 Estimated GFR (MDRD) Amer 131 mL/min >60 [facility] Comment on above: GFR Calc Estimated GFR (MDRD) Non-Af Amer 108 mL/min >60 [facility] Comment on above: Non- GFR Calc Prostate Specific Antigen Screen 0.54 ng/mL 0.00-4.00 [facility] Comment on above: This test was perfor med using the TPSA assay method for the[employer]idley chemistry system. Values obtained with differentassay methods cannot be used interchangably.When changing PSA assays in the course of monitoring apatient, additional sequential testing should be carriedout to confirm baseline values. Urine Microalbumin/Creatinine Ratio TNP [facility] Comment on above: Test not performed Urine RBC 0-5 SEEN /hpf 0-5 [facility] Vitamin D 25-Hydroxy 56.5 ng/mL [facility] Comment on above: Vitamin D 25(OH) Sta tus Range Deficiency <20 ng/mL (50nmol/L) Insufficiency 20 - 30 ng/mL (50 - 75 nmol/L) Sufficiency 30 - 100 ng/mL (75 - 250 nmol/L) Toxicity >100 ng/mL (>250 nmol/L) VLDL Cholesterol 22 mg/dL 5-40 [facility] Protein Test strip Ql (U)Ord ered By: Pito Avitia on 01-31-2024 Protein Ql (U) Negative Negative [facility] RBC Auto (Bld) [#/Vol]Ordere d By: Pito Avitia on 01-31-2024 RBC (Bld) [#/Vol] 3.71 10*6/uL 4.6-6.2 [facility] Serum or plasma calcium kamaljit urement (mass/volume)Ordered By: Pito Avitia on 01-31-2024 Calcium [Mass/Vol] 9.3 mg/dL 8.5-10.1 [facility] Serum or plasma creatinine m easurement (mass/volume)Ordered By: Pito Avitia on 01-31-2024 Creatinine [Mass/Vol] 0.76 mg/dL 0.70-1.30 [facility] Comment on above: The validity of the calculated GFR & GFRAA in patients over 70 years has not been determined. Clinical correlation is essential. Serum or plasma urea nitroge n measurement (mass/volume)Ordered By: Pito Avitia on 01-31-2024 Urea nitrogen [Mass/Vol] 14 mg/dL 7-18 [facility] Squamous epithelial cells de tection in urine sediment by light microscopyOrdered By: Pito Avitia on 01-31-2024 Epithelial cells.squamous LM Ql (Urine sed) 0 SEEN /hpf 0-5 [facility] Thin prep Papanicolaou smear with manual screeningOrdered By: Pito Avitia on 01-31-2024 Thin prep Papanicolaou smear with manual screening 3.7 g/dL 3.2-5.0 [facility] Thin prep Papanicolaou smear with manual screening 29 U/L 15-37 [facility] Thin prep Papanicolaou smear with manual screening 8 5-15 [facility] Thin prep Papanicolaou smear with manual screening < 5.0 mg/L NO RANGE EST. [facility] Urine blood detectionOrdered By: Pito Avitia on 01-31-2024 RBC Ql (U) 10 /ul Negative [facility] Urine clarityOrdered By: Torey Avitia on 01-31-2024 Clarity (U) Clear Clear [facility] Urine color determinationOrd ered By: Pito Avitia on 01-31-2024 Color (U) Yellow Yellow [facility] Urine creatinine measurement (mass/volume)Ordered By: Pito Avitia on 01-31-2024 Creatinine (U) [Mass/Vol] 104.00 mg/dL NO RANGE EST. [facility] Urine glucose detectionOrder ed By: Pito Avitia on 01-31-2024 Glucose Ql (U) Normal mg/dl Normal [facility] Urine leukocyte esterase det ection by dipstickOrdered By: Pito Avitia on 01-31-2024 Leukocyte esterase Test strip Ql (U) Negative Negative [facility] Urine pHOrdered By: Pito lloyd on 01-31-2024 pH (U) 7.0 [pH] 5.0 - 8.0 [facility] Urine sediment bacteria coun t by microscopy (number/high power field)Ordered By: Pito Avitia on 01-31-2024 Bacteria LM.HPF (Urine sed) [#/Area] 0 /[HPF] None Seen [facility] Urine specific gravity measu rementOrdered By: Pito Avitia on 01-31-2024 Specific gravity (U) [Rel density] 1.010 1.002-1.030 [facility] Urine urobilinogen measureme ntOrdered By: Pito Avitia on 01-31-2024 Urobilinogen Ql (U) Normal mg/dl Normal [facility] Whole blood hemoglobin A1c/t otal hemoglobin ratio (mass fraction)Ordered By: Pito Avitia on 01-31-2024 HbA1c (Bld) [Mass fraction] 6.2 % 3.8-5.6 [facility] Comment on above: Normal < 5.7 % Predi abetic 5.7 - 6.4 % Diabetic >or= 6.5 % Please note range changes. Absolute lymphocyte countOrd ered By: Aby Kimble on 06-14-2023 Lymphocytes Auto (Unsp spec) [#/Vol] 2.03 10*3/uL 0.83-4.51 [facility] Basophil percentageOrdered B y: Aby Kimble on 06-14-2023 Basophils/100 WBC (Bld) 0.6 % 0-1 [facility] Chloride [Moles/Vol] 101 mmol/L 98-107 [facility] Eosinophils/100 WBC (Bld) 1.5 % 0-5 [facility] Glucose [Mass/Vol] 126 mg/dL 74-106 [facility] Comment on above: Fasting Glucose resu lt greater than or equal to 126 mg/dL suggests DIABETES MELLITUS per A.D.A. criteria. Neutrophils (Bld) [#/Vol] 5.7 10*3/uL 2.0-7.7 [facility] Neutrophils/100 WBC (Bld) 65.7 % 47-70 [facility] Potassium [Moles/Vol] 4.3 mmol/L 3.5-5.1 [facility] Sodium [Moles/Vol] 136 mmol/L 136-145 [facility] WBC (Bld) [#/Vol] 8.6 10*3/uL 4.4-11.0 [facility] Blood erythrocytes count (nu mber/volume)Ordered By: Aby Kimble on 06-14-2023 RBC (Bld) [#/Vol] 4.20 10*6/uL 4.6-6.2 [facility] Blood hemoglobin measurement (mass/volume)Ordered By: Aby Kimble on 06-14-2023 Hemoglobin (Bld) [Mass/Vol] 14.1 g/dL 13.0-16.5 [facility] Blood lymphocytes/100 leukoc ytesOrdered By: Aby Kimble on 06-14-2023 Lymphocytes/100 WBC (Bld) 23.5 % 19-41 [facility] Blood monocytes/100 leukocyt esOrdered By: Aby Kimble on 06-14-2023 Monocytes/100 WBC (Bld) 8.0 % 0-10 [facility] Blood platelet mean volumeOr dered By: Aby Kimble on 06-14-2023 Platelet mean volume (Bld) [Entitic vol] 10.5 fL 6.2-12.0 [facility] Determination of erythrocyte mean corpuscular volume (MCV)Ordered By: Aby Kimble on 06-14-2023 MCV (RBC) [Entitic vol] 98.8 fL 80-94 [facility] Hematocrit Auto (Bld) [Volum e fraction]Ordered By: Aby Kimble on 06-14-2023 Hematocrit (Bld) [Volume fraction] 41.5 % 40-54 [facility] Laboratory - Chemistry and C hemistry - challengeOrdered By: Aby Kimble on 06-14-2023 CO2 [Moles/Vol] 31.0 mmol/L 21.0-32.0 [facility] Urea nitrogen/Creatinine [Mass ratio] 17.8 mg/mg 10-20 [facility] Laboratory - Hematology and Cell countsOrdered By: Aby Kimble on 06-14-2023 Erythrocyte distribution width (RBC) [Entitic vol] 47.6 fL 35.1-43.9 [facility] Erythrocyte distribution width (RBC) [Ratio] 13.2 % 11.6-14.6 [facility] Immature granulocytes/100 WBC (Bld) 0.700 % 0.0-0.9 [facility] Comment on above: IG% - Immature Granu locytes (promyelocytes, myelocytes and metamyelocytes) > 1% indicates that a LEFT SHIFT is Present. MCH (RBC) [Entitic mass] 33.6 pg 27.0-32.0 [facility] Nucleated RBC/100 WBC (Bld) [Ratio] 0 % 0-5 [facility] MCHC Auto (RBC) [Mass/Vol]Or dered By: Aby Kimble on 06-14-2023 MCHC (RBC) [Mass/Vol] 34.0 g/dL 32-36 [facility] No Panel InformationOrdered By: Aby Kimble on 06-14-2023 Estimated GFR (MDRD) Amer 137 mL/min >60 [facility] Comment on above: GFR Calc Estimated GFR (MDRD) Non-Af Amer 113 mL/min >60 [facility] Comment on above: Non- GFR Calc Platelets bldOrdered By: Mami Kimble on 06-14-2023 Platelets (Bld) [#/Vol] 221 10*3/uL 150-450 [facility] Serum or plasma calcium kamaljit urement (mass/volume)Ordered By: Aby Kimble on 06-14-2023 Calcium [Mass/Vol] 10.0 mg/dL 8.5-10.1 [facility] Serum or plasma creatinine m easurement (mass/volume)Ordered By: Aby Kimble on 06-14-2023 Creatinine [Mass/Vol] 0.73 mg/dL 0.70-1.30 [facility] Comment on above: The validity of the calculated GFR & GFRAA in patients over 70 years has not been determined. Clinical correlation is essential. Serum or plasma urea nitroge n measurement (mass/volume)Ordered By: Aby Kimble on 06-14-2023 Urea nitrogen [Mass/Vol] 13 mg/dL 7-18 [facility] Thin prep Papanicolaou smear with manual screeningOrdered By: Aby Kimble on 06-14-2023 Thin prep Papanicolaou smear with manual screening 4 5-15 [facility] Whole blood hemoglobin A1c/t otal hemoglobin ratio (mass fraction)Ordered By: Aby Kimble on 06-14-2023 HbA1c (Bld) [Mass fraction] 6.0 % 3.8-5.6 [facility] Comment on above: Normal < 5.7 % Predi abetic 5.7 - 6.4 % Diabetic >or= 6.5 % Please note range changes. Absolute lymphocyte countOrd ered By: Pito Avitia on 05-20-2023 Lymphocytes Auto (Unsp spec) [#/Vol] 2.76 10*3/uL 0.83-4.51 [facility] Basophil percentageOrdered B y: Pito Avitia on 05-20-2023 Basophils/100 WBC (Bld) 0.5 % 0-1 [facility] Bilirubin [Mass/Vol] 0.50 mg/dL 0.20-1.00 [facility] Comment on above: For patients on eltr ombopag therapy, use of Dimension [place] TBIL is not recommended. Chloride [Moles/Vol] 104 mmol/L 98-107 [facility] Cholesterol [Mass/Vol] 131 mg/dL <200 [facility] Comment on above: <200 mg/dL Desirable 200-240 mg/dL Borderline >240 mg/dL High Risk Eosinophils/100 WBC (Bld) 1.8 % 0-5 [facility] Glucose [Mass/Vol] 123 mg/dL 74-106 [facility] Comment on above: Fasting Glucose resu lt from 100 to 125 mg/dL suggests IMPAIRED HOMEOSTASIS per A.D.A. criteria. Neutrophils (Bld) [#/Vol] 4.7 10*3/uL 2.0-7.7 [facility] Neutrophils/100 WBC (Bld) 57.2 % 47-70 [facility] Potassium [Moles/Vol] 4.2 mmol/L 3.5-5.1 [facility] Protein [Mass/Vol] 7.3 g/dL 6.4-8.2 [facility] Sodium [Moles/Vol] 137 mmol/L 136-145 [facility] Triglyceride [Mass/Vol] 151 mg/dL <199 [facility] Comment on above: The drugs N-Acetylcy steine and Metamizole may falsely depress this assay.Serum Triglycerides Reference Interval Normal <150 mg/dL Borderline high 150 - 199 mg/dL High 200 - 499 mg/dL Very High > or = 500 mg/dL WBC (Bld) [#/Vol] 8.2 10*3/uL 4.4-11.0 [facility] Blood erythrocytes count (nu mber/volume)Ordered By: Pito Avitia on 05-20-2023 RBC (Bld) [#/Vol] 4.18 10*6/uL 4.6-6.2 [facility] Blood hemoglobin measurement (mass/volume)Ordered By: Pito Avitia on 05-20-2023 Hemoglobin (Bld) [Mass/Vol] 14.1 g/dL 13.0-16.5 [facility] Blood lymphocytes/100 leukoc ytesOrdered By: Pito Avitia on 05-20-2023 Lymphocytes/100 WBC (Bld) 33.8 % 19-41 [facility] Blood monocytes/100 leukocyt esOrdered By: Pito Avitia on 05-20-2023 Monocytes/100 WBC (Bld) 6.3 % 0-10 [facility] Blood platelet mean volumeOr dered By: Pito Avitia on 05-20-2023 Platelet mean volume (Bld) [Entitic vol] 9.9 fL 6.2-12.0 [facility] Determination of erythrocyte mean corpuscular volume (MCV)Ordered By: Pito Avitia on 05-20-2023 MCV (RBC) [Entitic vol] 98.3 fL 80-94 [facility] Hematocrit Auto (Bld) [Volum e fraction]Ordered By: Pito Avitia on 05-20-2023 Hematocrit (Bld) [Volume fraction] 41.1 % 40-54 [facility] - Chemistry and C hemistry - challengeOrdered By: Pito Avitia on 05-20-2023 ALP [Catalytic activity/Vol] 50 U/L 45-117 [facility] ALT [Catalytic activity/Vol] 39 U/L 16-61 [facility] CO2 [Moles/Vol] 28.0 mmol/L 21.0-32.0 [facility] Globulin (S) [Mass/Vol] 3.4 g/dL 2.2-4.2 [facility] Urea nitrogen/Creatinine [Mass ratio] 13.0 mg/mg 10-20 [facility] - Hematology and Cell countsOrdered By: Pito Avitia on 05-20-2023 Erythrocyte distribution width (RBC) [Entitic vol] 47.8 fL 35.1-43.9 [facility] Erythrocyte distribution width (RBC) [Ratio] 13.2 % 11.6-14.6 [facility] Immature granulocytes/100 WBC (Bld) 0.400 % 0.0-0.9 [facility] Comment on above: IG% - Immature Granu locytes (promyelocytes, myelocytes and metamyelocytes) > 1% indicates that a LEFT SHIFT is Present. MCH (RBC) [Entitic mass] 33.7 pg 27.0-32.0 [facility] Nucleated RBC/100 WBC (Bld) [Ratio] 0 % 0-5 [facility] MCHC Auto (RBC) [Mass/Vol]Or dered By: Pito Avitia on 05-20-2023 MCHC (RBC) [Mass/Vol] 34.3 g/dL 32-36 [facility] No Panel InformationOrdered By: Pito Avitia on 05-20-2023 Estimated GFR (MDRD) Amer 129 mL/min >60 [facility] Comment on above: GFR Calc Estimated GFR (MDRD) Non-Af Amer 107 mL/min >60 [facility] Comment on above: Non- GFR Calc Vitamin D 25-Hydroxy 48.2 ng/mL [facility] Comment on above: Vitamin D 25(OH) Sta tus Range Deficiency <20 ng/mL (50nmol/L) Insufficiency 20 - 30 ng/mL (50 - 75 nmol/L) Sufficiency 30 - 100 ng/mL (75 - 250 nmol/L) Toxicity >100 ng/mL (>250 nmol/L) Platelets bldOrdered By: Torey Avitia on 05-20-2023 Platelets (Bld) [#/Vol] 218 10*3/uL 150-450 [facility] Serum or plasma albumin kamaljit urement (mass/volume)Ordered By: Pito Avitia on 05-20-2023 Albumin [Mass/Vol] 3.9 g/dL 3.2-5.0 [facility] Serum or plasma albumin/glob ulin mass ratioOrdered By: Pito Avitia on 05-20-2023 Albumin/Globulin [Mass ratio] 1.1 {ratio} 0.9-2.4 [facility] Serum or plasma calcium kamaljit urement (mass/volume)Ordered By: Pito Avitia on 05-20-2023 Calcium [Mass/Vol] 9.1 mg/dL 8.5-10.1 [facility] Serum or plasma cholesterol in HDL measurement (mass/volume)Ordered By: Pito Avitia on 05-20-2023 Cholesterol in HDL [Mass/Vol] 36 mg/dL >40 [facility] Comment on above: The drugs N-Acetylcy steine and Metamizole may falsely depress this assay. Reference Range HDL <40 mg/dL Low HDL Cholesterol HDL >or= 60 mg/dL High HDL Cholesterol Serum or plasma cholesterol in VLDL measurement (mass/volume)Ordered By: Pito Avitia on 05-20-2023 Cholesterol in VLDL [Mass/Vol] 30 mg/dL 5-40 [facility] Serum or plasma creatinine m easurement (mass/volume)Ordered By: Pito Avitia on 05-20-2023 Creatinine [Mass/Vol] 0.77 mg/dL 0.70-1.30 [facility] Comment on above: The validity of the calculated GFR & GFRAA in patients over 70 years has not been determined. Clinical correlation is essential. Serum or plasma low density lipoprotein (LDL) cholesterol measurement (mass/volume)Ordered By: Pito Avitia on 05-20-2023 Cholesterol in LDL [Mass/Vol] 65 mg/dL 0-130 [facility] Serum or plasma urea nitroge n measurement (mass/volume)Ordered By: Pito Avitia on 05-20-2023 Urea nitrogen [Mass/Vol] 10 mg/dL 7-18 [facility] Thin prep Papanicolaou smear with manual screeningOrdered By: Pito Avitia on 05-20-2023 Thin prep Papanicolaou smear with manual screening 26 U/L 15-37 [facility] Thin prep Papanicolaou smear with manual screening 5 5-15 [facility] Whole blood hemoglobin A1c/t otal hemoglobin ratio (mass fraction)Ordered By: Pito Avitia on 05-20-2023 HbA1c (Bld) [Mass fraction] 6.1 % 3.8-5.6 [facility] Comment on above: Normal < 5.7 % Predi abetic 5.7 - 6.4 % Diabetic >or= 6.5 % Please note range changes. Absolute lymphocyte countOrd ered By: Dr. Avitia on 01-20-2023 Lymphocytes Auto (Unsp spec) [#/Vol] 2.75 10*3/uL 0.83-4.51 [facility] Basophil percentageOrdered B y: Dr. Avitia on 01-20-2023 Basophils/100 WBC (Bld) 0.5 % 0-1 [facility] Bilirubin [Mass/Vol] 0.30 mg/dL 0.20-1.00 [facility] Comment on above: For patients on eltr ombopag therapy, use of [employer] [place] TBIL is not recommended. Chloride [Moles/Vol] 100 mmol/L 98-107 [facility] Cholesterol [Mass/Vol] 127 mg/dL <200 [facility] Comment on above: <200 mg/dL Desirable 200-240 mg/dL Borderline >240 mg/dL High Risk Eosinophils/100 WBC (Bld) 2.1 % 0-5 [facility] Glucose [Mass/Vol] 83 mg/dL 74-106 [facility] Neutrophils (Bld) [#/Vol] 3.6 10*3/uL 2.0-7.7 [facility] Neutrophils/100 WBC (Bld) 49.5 % 47-70 [facility] Potassium [Moles/Vol] 4.0 mmol/L 3.5-5.1 [facility] Protein [Mass/Vol] 7.6 g/dL 6.4-8.2 [facility] Sodium [Moles/Vol] 134 mmol/L 136-145 [facility] Triglyceride [Mass/Vol] 264 mg/dL <199 [facility] Comment on above: The drugs N-Acetylcy steine and Metamizole may falsely depress this assay.Serum Triglycerides Reference Interval Normal <150 mg/dL Borderline high 150 - 199 mg/dL High 200 - 499 mg/dL Very High > or = 500 mg/dL WBC (Bld) [#/Vol] 7.3 10*3/uL 4.4-11.0 [facility] Blood erythrocytes count (nu mber/volume)Ordered By: Dr. Avitia on 01-20-2023 RBC (Bld) [#/Vol] 4.22 10*6/uL 4.6-6.2 [facility] Blood hemoglobin measurement (mass/volume)Ordered By: Dr. Avitia on 01-20-2023 Hemoglobin (Bld) [Mass/Vol] 14.3 g/dL 13.0-16.5 [facility] Blood lymphocytes/100 leukoc ytesOrdered By: Dr. Avitia on 01-20-2023 Lymphocytes/100 WBC (Bld) 37.8 % 19-41 [facility] Blood monocytes/100 leukocyt esOrdered By: Dr. Avitia on 01-20-2023 Monocytes/100 WBC (Bld) 9.6 % 0-10 [facility] Blood platelet mean volumeOr dered By: Dr. Avitia on 01-20-2023 Platelet mean volume (Bld) [Entitic vol] 10.8 fL 6.2-12.0 [facility] Determination of erythrocyte mean corpuscular volume (MCV)Ordered By: Dr. Avitia on 01-20-2023 MCV (RBC) [Entitic vol] 99.3 fL 80-94 [facility] Hematocrit Auto (Bld) [Volum e fraction]Ordered By: Dr. Avitia on 01-20-2023 Hematocrit (Bld) [Volume fraction] 41.9 % 40-54 [facility] - Chemistry and C hemistry - challengeOrdered By: Dr. Avitia on 01-20-2023 ALP [Catalytic activity/Vol] 54 U/L 45-117 [facility] ALT [Catalytic activity/Vol] 39 U/L 16-61 [facility] CO2 [Moles/Vol] 26.0 mmol/L 21.0-32.0 [facility] Globulin (S) [Mass/Vol] 3.4 g/dL 2.2-4.2 [facility] Urea nitrogen/Creatinine [Mass ratio] 18.0 mg/mg 10-20 [facility] - Hematology and Cell countsOrdered By: Dr. Avitia on 01-20-2023 Erythrocyte distribution width (RBC) [Entitic vol] 47.9 fL 35.1-43.9 [facility] Erythrocyte distribution width (RBC) [Ratio] 13.2 % 11.6-14.6 [facility] Immature granulocytes/100 WBC (Bld) 0.500 % 0.0-0.9 [facility] Comment on above: IG% - Immature Granu locytes (promyelocytes, myelocytes and metamyelocytes) > 1% indicates that a LEFT SHIFT is Present. MCH (RBC) [Entitic mass] 33.9 pg 27.0-32.0 [facility] Nucleated RBC/100 WBC (Bld) [Ratio] 0 % 0-5 [facility] MCHC Auto (RBC) [Mass/Vol]Or dered By: Dr. Avitia on 01-20-2023 MCHC (RBC) [Mass/Vol] 34.1 g/dL 32-36 [facility] No Panel InformationOrdered By: Karen Marti on 01-20-2023 Prostate Specific Antigen Screen 0.73 ng/mL 0.00-4.00 [facility] Comment on above: This test was perfor med using the TPSA assay method [facility]. Values obtained with differentassay methods cannot be used interchangably.When changing PSA assays in the course of monitoring apatient, additional sequential testing should be carriedout to confirm baseline values. No Panel InformationOrdered By: Dr. Avitia on 01-20-2023 Estimated GFR (MDRD) Amer 139 mL/min >60 [facility] Comment on above: GFR Calc Estimated GFR (MDRD) Non-Af Amer 115 mL/min >60 [facility] Comment on above: Non- GFR Calc Thyroid Stimulating Hormone (TSH) 2.54 uIU/mL 0.358-3.74 [facility] Vitamin D 25-Hydroxy 44.0 ng/mL [facility] Comment on above: Vitamin D 25(OH) Sta tus Range Deficiency <20 ng/mL (50nmol/L) Insufficiency 20 - 30 ng/mL (50 - 75 nmol/L) Sufficiency 30 - 100 ng/mL (75 - 250 nmol/L) Toxicity >100 ng/mL (>250 nmol/L) Platelets bldOrdered By: Dr. Avitia on 01-20-2023 Platelets (Bld) [#/Vol] 228 10*3/uL 150-450 [facility] Serum or plasma albumin kamaljit urement (mass/volume)Ordered By: Dr. Avitia on 01-20-2023 Albumin [Mass/Vol] 4.2 g/dL 3.2-5.0 [facility] Serum or plasma albumin/glob ulin mass ratioOrdered By: Dr. Avitia on 01-20-2023 Albumin/Globulin [Mass ratio] 1.2 {ratio} 0.9-2.4 [facility] Serum or plasma calcium kamaljit urement (mass/volume)Ordered By: Dr. Avitia on 01-20-2023 Calcium [Mass/Vol] 9.2 mg/dL 8.5-10.1 [facility] Serum or plasma cholesterol in HDL measurement (mass/volume)Ordered By: Dr. Avitia on 01-20-2023 Cholesterol in HDL [Mass/Vol] 35 mg/dL >40 [facility] Comment on above: The drugs N-Acetylcy steine and Metamizole may falsely depress this assay. Reference Range HDL <40 mg/dL Low HDL Cholesterol HDL >or= 60 mg/dL High HDL Cholesterol Serum or plasma cholesterol in VLDL measurement (mass/volume)Ordered By: Dr. Avitia on 01-20-2023 Cholesterol in VLDL [Mass/Vol] 53 mg/dL 5-40 [facility] Serum or plasma creatinine m easurement (mass/volume)Ordered By: Dr. Avitia on 01-20-2023 Creatinine [Mass/Vol] 0.72 mg/dL 0.70-1.30 [facility] Comment on above: The validity of the calculated GFR & GFRAA in patients over 70 years has not been determined. Clinical correlation is essential. Serum or plasma low density lipoprotein (LDL) cholesterol measurement (mass/volume)Ordered By: Dr. Avitia on 01-20-2023 Cholesterol in LDL [Mass/Vol] 39 mg/dL 0-130 [facility] Serum or plasma urea nitroge n measurement (mass/volume)Ordered By: Dr. Avitia on 01-20-2023 Urea nitrogen [Mass/Vol] 13 mg/dL 7-18 [facility] Thin prep Papanicolaou smear with manual screeningOrdered By: Dr. Avitia on 01-20-2023 Thin prep Papanicolaou smear with manual screening 23 U/L 15-37 [facility] Thin prep Papanicolaou smear with manual screening 8 5-15 [facility] Whole blood hemoglobin A1c/t otal hemoglobin ratio (mass fraction)Ordered By: Dr. Avitia on 01-20-2023 HbA1c (Bld) [Mass fraction] 6.1 % 3.8-5.6 [facility] Comment on above: Normal < 5.7 % Predi abetic 5.7 - 6.4 % Diabetic >or= 6.5 % Please note range changes. Absolute lymphocyte countOrd ered By: Dr. Avitia on 10-29-2022 Lymphocytes Auto (Unsp spec) [#/Vol] 2.67 10*3/uL 0.83-4.51 [facility] Basophil percentageOrdered B y: Dr. Avitia on 10-29-2022 Basophils/100 WBC (Bld) 0.6 % 0-1 [facility] Bilirubin [Mass/Vol] 0.50 mg/dL 0.20-1.00 [facility] Comment on above: For patients on eltr ombopag therapy, use of Dimension [place] TBIL is not recommended. Chloride [Moles/Vol] 101 mmol/L 98-107 [facility] Cholesterol [Mass/Vol] 139 mg/dL <200 [facility] Comment on above: <200 mg/dL Desirable 200-240 mg/dL Borderline >240 mg/dL High Risk Eosinophils/100 WBC (Bld) 2.0 % 0-5 [facility] Glucose [Mass/Vol] 122 mg/dL 74-106 [facility] Comment on above: Fasting Glucose resu lt from 100 to 125 mg/dL suggests IMPAIRED HOMEOSTASIS per A.D.A. criteria. Neutrophils (Bld) [#/Vol] 4.4 10*3/uL 2.0-7.7 [facility] Neutrophils/100 WBC (Bld) 56.2 % 47-70 [facility] Potassium [Moles/Vol] 4.0 mmol/L 3.5-5.1 [facility] Protein [Mass/Vol] 7.9 g/dL 6.4-8.2 [facility] Sodium [Moles/Vol] 137 mmol/L 136-145 [facility] Triglyceride [Mass/Vol] 137 mg/dL <199 [facility] Comment on above: The drugs N-Acetylcy steine and Metamizole may falsely depress this assay.Serum Triglycerides Reference Interval Normal <150 mg/dL Borderline high 150 - 199 mg/dL High 200 - 499 mg/dL Very High > or = 500 mg/dL WBC (Bld) [#/Vol] 7.8 10*3/uL 4.4-11.0 [facility] Blood erythrocytes count (nu mber/volume)Ordered By: Dr. Avitia on 10-29-2022 RBC (Bld) [#/Vol] 4.57 10*6/uL 4.6-6.2 [facility] Blood hemoglobin measurement (mass/volume)Ordered By: Dr. Avitia on 10-29-2022 Hemoglobin (Bld) [Mass/Vol] 15.6 g/dL 13.0-16.5 [facility] Blood lymphocytes/100 leukoc ytesOrdered By: Dr. Avitia on 10-29-2022 Lymphocytes/100 WBC (Bld) 34.1 % 19-41 [facility] Blood monocytes/100 leukocyt esOrdered By: Dr. Avitia on 10-29-2022 Monocytes/100 WBC (Bld) 6.5 % 0-10 [facility] Blood platelet mean volumeOr dered By: Dr. Avitia on 01-06-2023 Platelet mean volume (Bld) [Entitic vol] 10.5 fL 6.2-12.0 [facility] Determination of erythrocyte mean corpuscular volume (MCV)Ordered By: Dr. Avitia on 10-29-2022 MCV (RBC) [Entitic vol] 99.8 fL 80-94 [facility] Hematocrit Auto (Bld) [Volum e fraction]Ordered By: Dr. Avitia on 10-29-2022 Hematocrit (Bld) [Volume fraction] 45.6 % 40-54 [facility] - Chemistry and C hemistry - challengeOrdered By: Dr. Avitia on 10-29-2022 ALP [Catalytic activity/Vol] 49 U/L 45-117 [facility] ALT [Catalytic activity/Vol] 46 U/L 16-61 [facility] CO2 [Moles/Vol] 27.0 mmol/L 21.0-32.0 [facility] Globulin (S) [Mass/Vol] 3.8 g/dL 2.2-4.2 [facility] Urea nitrogen/Creatinine [Mass ratio] 19.3 mg/mg 10-20 [facility] Laboratory - Hematology and Cell countsOrdered By: Dr. Avitia on 10-29-2022 Erythrocyte distribution width (RBC) [Entitic vol] 46.5 fL 35.1-43.9 [facility] Erythrocyte distribution width (RBC) [Ratio] 12.7 % 11.6-14.6 [facility] Immature granulocytes/100 WBC (Bld) 0.600 % 0.0-0.9 [facility] Comment on above: IG% - Immature Granu locytes (promyelocytes, myelocytes and metamyelocytes) > 1% indicates that a LEFT SHIFT is Present. MCH (RBC) [Entitic mass] 34.1 pg 27.0-32.0 [facility] Nucleated RBC/100 WBC (Bld) [Ratio] 0 % 0-5 [facility] MCHC Auto (RBC) [Mass/Vol]Or dered By: Dr. Avitia on 10-29-2022 MCHC (RBC) [Mass/Vol] 34.2 g/dL 32-36 [facility] No Panel InformationOrdered By: Dr. Avitia on 10-29-2022 Estimated GFR (MDRD) Amer 128 mL/min >60 [facility] Comment on above: GFR Calc Estimated GFR (MDRD) Non-Af Amer 106 mL/min >60 [facility] Comment on above: Non- GFR Calc Urine Microalbumin/Creatinine Ratio 16.4 mg/g CRE <30 [facility] Vitamin D 25-Hydroxy 41.5 ng/mL [facility] Comment on above: Vitamin D 25(OH) Sta tus Range Deficiency <20 ng/mL (50nmol/L) Insufficiency 20 - 30 ng/mL (50 - 75 nmol/L) Sufficiency 30 - 100 ng/mL (75 - 250 nmol/L) Toxicity >100 ng/mL (>250 nmol/L) Platelets bldOrdered By: Dr. Avitia on 10-29-2022 Platelets (Bld) [#/Vol] 217 10*3/uL 150-450 [facility] Serum or plasma albumin kamaljit urement (mass/volume)Ordered By: Dr. Avitia on 10-29-2022 Albumin [Mass/Vol] 4.1 g/dL 3.2-5.0 [facility] Serum or plasma albumin/glob ulin mass ratioOrdered By: Dr. Avitia on 10-29-2022 Albumin/Globulin [Mass ratio] 1.1 {ratio} 0.9-2.4 [facility] Serum or plasma calcium kamaljit urement (mass/volume)Ordered By: Dr. Avitia on 10-29-2022 Calcium [Mass/Vol] 9.7 mg/dL 8.5-10.1 [facility] Serum or plasma cholesterol in HDL measurement (mass/volume)Ordered By: Dr. Avitia on 10-29-2022 Cholesterol in HDL [Mass/Vol] 46 mg/dL >40 [facility] Comment on above: The drugs N-Acetylcy steine and Metamizole may falsely depress this assay. Reference Range HDL <40 mg/dL Low HDL Cholesterol HDL >or= 60 mg/dL High HDL Cholesterol Serum or plasma cholesterol in VLDL measurement (mass/volume)Ordered By: Dr. Avitia on 10-29-2022 Cholesterol in VLDL [Mass/Vol] 27 mg/dL 5-40 [facility] Serum or plasma creatinine m easurement (mass/volume)Ordered By: Dr. Avitia on 10-29-2022 Creatinine [Mass/Vol] 0.78 mg/dL 0.70-1.30 [facility] Comment on above: The validity of the calculated GFR & GFRAA in patients over 70 years has not been determined. Clinical correlation is essential. Serum or plasma low density lipoprotein (LDL) cholesterol measurement (mass/volume)Ordered By: Dr. Avitia on 10-29-2022 Cholesterol in LDL [Mass/Vol] 66 mg/dL 0-130 [facility] Serum or plasma urea nitroge n measurement (mass/volume)Ordered By: Dr. Avitia on 10-29-2022 Urea nitrogen [Mass/Vol] 15 mg/dL 7-18 [facility] Thin prep Papanicolaou smear with manual screeningOrdered By: Dr. Avitia on 10-29-2022 Thin prep Papanicolaou smear with manual screening 17 U/L 15-37 [facility] Thin prep Papanicolaou smear with manual screening 9 5-15 [facility] Thin prep Papanicolaou smear with manual screening 9.8 mg/L NO RANGE EST. [facility] Urine creatinine measurement (mass/volume)Ordered By: Dr. Avitia on 10-29-2022 Creatinine (U) [Mass/Vol] 59.90 mg/dL NO RANGE EST. [facility] Whole blood hemoglobin A1c/t otal hemoglobin ratio (mass fraction)Ordered By: Dr. Avitia on 10-29-2022 HbA1c (Bld) [Mass fraction] 5.7 % 3.8-5.6 [facility] Comment on above: Normal < 5.7 % Predi abetic 5.7 - 6.4 % Diabetic >or= 6.5 % Please note range changes. Absolute lymphocyte counton 06-22-2022 Lymphocytes Auto (Unsp spec) [#/Vol] 3.08 10*3/uL 0.83-4.51 [facility] Work Phone: Basophil percentageon 2021 Basophil percentage 0 SEEN [facility]: Basophils/100 WBC (Bld) 0.5 % 0-1 [facility] Work Phone: Bilirubin [Mass/Vol] 0.60 mg/dL 0.20-1.00 [facility] Work Phone: Comment on above: For patients on eltr ombopag therapy, use of Dimension [place] TBIL is not recommended. Chloride [Moles/Vol] 104 mmol/L 98-107 [facility] Work Phone: Cholesterol [Mass/Vol] 115 mg/dL <200 [facility] Work Phone: Comment on above: <200 mg/dL Desirable 200-240 mg/dL Borderline >240 mg/dL High Risk Eosinophils/100 WBC (Bld) 1.7 % 0-5 [facility] Work Phone: Glucose [Mass/Vol] 104 mg/dL 74-106 [facility] Work Phone: Comment on above: Fasting Glucose resu lt from 100 to 125 mg/dL suggests IMPAIRED HOMEOSTASIS per A.D.A. criteria. Neutrophils (Bld) [#/Vol] 4.9 10*3/uL 2.0-7.7 [facility] Work Phone: Neutrophils/100 WBC (Bld) 56.5 % 47-70 [facility] Work Phone: Potassium [Moles/Vol] 4.3 mmol/L 3.5-5.1 [facility] Work Phone: Protein [Mass/Vol] 7.6 g/dL 6.4-8.2 [facility] Work Phone: Sodium [Moles/Vol] 137 mmol/L 136-145 [facility] Work Phone: Triglyceride [Mass/Vol] 143 mg/dL <199 [facility] Work Phone: Comment on above: The drugs N-Acetylcy steine and Metamizole may falsely depress this assay.Serum Triglycerides Reference Interval Normal <150 mg/dL Borderline high 150 - 199 mg/dL High 200 - 499 mg/dL Very High > or = 500 mg/dL WBC (Bld) [#/Vol] 8.6 10*3/uL 4.4-11.0 [facility] Work Phone: Bilirubin Test strip Ql (U)o n 06-22-2022 Bilirubin Ql (U) Negative Negative [facility] Work Phone: Blood erythrocytes count (nu mber/volume)on 06-22-2022 RBC (Bld) [#/Vol] 4.26 10*6/uL 4.6-[facility] Blood hemoglobin measurement (mass/volume)on 06-22-2022 Hemoglobin (Bld) [Mass/Vol] 14.6 g/dL 13.0-16.5 [facility] Work Phone: Blood lymphocytes/100 leukoc yteson 06-22-2022 Lymphocytes/100 WBC (Bld) 35.9 % 19-41 [facility] Work Phone: Blood monocytes/100 leukocyt eson 06-22-2022 Monocytes/100 WBC (Bld) 5.2 % 0-10 [facility] Work Phone: Blood platelet mean volumeon 06-22-2022 Platelet mean volume (Bld) [Entitic vol] 10.3 fL 6.2-12.0 [facility] Work Phone: Determination of erythrocyte mean corpuscular volume (MCV)on 06-22-2022 MCV (RBC) [Entitic vol] 98.6 fL 80-94 [facility] Work Phone: Hematocrit Auto (Bld) [Volum e fraction]on 06-22-2022 Hematocrit (Bld) [Volume fraction] 42.0 % 40-54 [facility] Work Phone: Ketones Test strip Ql (U)on 06-22-2022 Ketones Ql (U) Negative Negative [facility] Work Phone: Laboratory - Chemistry and C hemistry - challengeon 06-22-2022 ALP [Catalytic activity/Vol] 44 U/L 45-117 [facility] Work Phone: ALT [Catalytic activity/Vol] 22 U/L 16-61 [facility] Work Phone: CO2 [Moles/Vol] 28.0 mmol/L 21.0-32.0 [facility] Work Phone: Globulin (S) [Mass/Vol] 3.4 g/dL 2.2-4.2 [facility] Work Phone: Urea nitrogen/Creatinine [Mass ratio] 22.7 mg/mg 10-20 [facility] Work Phone: Laboratory - Hematology and Cell countson 06-22-2022 Erythrocyte distribution width (RBC) [Entitic vol] 49.1 fL 35.1-43.9 [facility] Work Phone: Erythrocyte distribution width (RBC) [Ratio] 13.4 % 11.6-14.6 [facility] Work Phone: Immature granulocytes/100 WBC (Bld) 0.200 % 0.0-0.9 [facility] Work Phone: Comment on above: IG% - Immature Granu locytes (promyelocytes, myelocytes and metamyelocytes) > 1% indicates that a LEFT SHIFT is Present. MCH (RBC) [Entitic mass] 34.3 pg 27.0-32.0 [facility] Work Phone: Nucleated RBC/100 WBC (Bld) [Ratio] 0 % 0-5 [facility] Work Phone: MCHC Auto (RBC) [Mass/Vol]on 06-22-2022 MCHC (RBC) [Mass/Vol] 34.8 g/dL 32-36 [facility] Work Phone: Mucus LM Ql (Urine sed)on Mucus Ql (Urine sed) 0 SEEN /hpf [facility] Work Phone: Nitrite Test strip Ql (U)on 06-22-2022 Nitrite Ql (U) Negative Negative [facility] Work Phone: No Panel Informationon 06-22 Estimated GFR (MDRD) Amer 143 mL/min >60 [facility] Work Phone: Comment on above: GFR Calc Estimated GFR (MDRD) Non-Af Amer 118 mL/min >60 [facility] Work Phone: Comment on above: Non- GFR Calc Urine Microalbumin/Creatinine Ratio TNP [facility] Work Phone: Comment on above: Test not performed Vitamin D 25-Hydroxy 51.3 ng/mL [facility] Work Phone: Comment on above: Vitamin D 25(OH) Sta tus Range Deficiency <20 ng/mL (50nmol/L) Insufficiency 20 - 30 ng/mL (50 - 75 nmol/L) Sufficiency 30 - 100 ng/mL (75 - 250 nmol/L) Toxicity >100 ng/mL (>250 nmol/L) Platelets bldon 06-22-2022 Platelets (Bld) [#/Vol] 194 10*3/uL 150-450 [facility] Work Phone: Protein Test strip Ql (U)on 06-22-2022 Protein Ql (U) Negative Negative [facility] Work Phone: Serum or plasma albumin kamaljit urement (mass/volume)on 06-22-2022 Albumin [Mass/Vol] 4.2 g/dL 3.2-5.0 [facility] Work Phone: Serum or plasma albumin/glob ulin mass ratioon 06-22-2022 Albumin/Globulin [Mass ratio] 1.2 {ratio} 0.9-2.4 [facility] Work Phone: Serum or plasma calcium kamaljit urement (mass/volume)on 06-22-2022 Calcium [Mass/Vol] 9.6 mg/dL 8.5-10.1 [facility] Work Phone: Serum or plasma cholesterol in HDL measurement (mass/volume)on 06-22-2022 Cholesterol in HDL [Mass/Vol] 34 mg/dL >40 [facility] Work Phone: Comment on above: The drugs N-Acetylcy steine and Metamizole may falsely depress this assay. Reference Range HDL <40 mg/dL Low HDL Cholesterol HDL >or= 60 mg/dL High HDL Cholesterol Serum or plasma cholesterol in VLDL measurement (mass/volume)on 06-22-2022 Cholesterol in VLDL [Mass/Vol] 29 mg/dL 5-40 [facility] Work Phone: Serum or plasma creatinine m easurement (mass/volume)on 06-22-2022 Creatinine [Mass/Vol] 0.71 mg/dL 0.70-1.30 [facility] Work Phone: Comment on above: The validity of the calculated GFR & GFRAA in patients over 70 years has not been determined. Clinical correlation is essential. Serum or plasma low density lipoprotein (LDL) cholesterol measurement (mass/volume)on 06-22-2022 Cholesterol in LDL [Mass/Vol] 52 mg/dL 0-130 [facility] Work Phone: Serum or plasma urea nitroge n measurement (mass/volume)on 06-22-2022 Urea nitrogen [Mass/Vol] 16 mg/dL 7-18 [facility] Work Phone: Squamous epithelial cells de tection in urine sediment by light microscopyon 06-22-2022 Epithelial cells.squamous LM Ql (Urine sed) 0 SEEN /hpf 0-5 [facility] Work Phone: Thin prep Papanicolaou smear with manual screeningon 06-22-2022 Thin prep Papanicolaou smear with manual screening 14 U/L 15-37 [facility] Work Phone: Thin prep Papanicolaou smear with manual screening 5 5-15 [facility] Work Phone: Thin prep Papanicolaou smear with manual screening < 5.0 mg/L NO RANGE EST. [facility] Work Phone: Urine blood detectionon 08-3 0-2022 RBC Ql (U) 50 /ul Negative [facility] Work Phone: RBC Ql (U) 0 SEEN /hpf 0-5 [facility] Work Phone: Urine clarityon 06-22-2022 Clarity (U) Clear Clear [facility] Work Phone: Urine color determinationon 06-22-2022 Color (U) Straw Yellow [facility] Work Phone: Urine creatinine measurement (mass/volume)on 06-22-2022 Creatinine (U) [Mass/Vol] 60.40 mg/dL NO RANGE EST. [facility] Work Phone: Urine glucose detectionon Glucose Ql (U) Normal mg/dl Normal [facility] Work Phone: Urine leukocyte esterase det ection by dipstickon 06-22-2022 Leukocyte esterase Test strip Ql (U) Negative Negative [facility] Work Phone: Urine pHon 06-22-2022 pH (U) 7.0 [pH] 5.0 - 8.0 [facility] Work Phone: Urine sediment bacteria coun t by microscopy (number/high power field)on 06-22-2022 Bacteria LM.HPF (Urine sed) [#/Area] 0 /[HPF] None Seen [facility] Work Phone: Urine specific gravity measu rementon 06-22-2022 Specific gravity (U) [Rel density] 1.010 1.002-1.030 [facility] Work Phone: Urobilinogen Auto test strip Ql (U)on 06-22-2022 Urobilinogen Ql (U) Normal mg/dl Normal [facility] Work Phone: Whole blood hemoglobin A1c/t otal hemoglobin ratio (mass fraction)on 06-22-2022 HbA1c (Bld) [Mass fraction] 5.7 % 3.8-5.6 [facility] Work Phone: Comment on above: Normal < 5.7 % Predi abetic 5.7 - 6.4 % Diabetic >or= 6.5 % Please note range changes. Absolute lymphocyte counton 02-23-2022 Lymphocytes Auto (Unsp spec) [#/Vol] 2.37 10*3/uL 0.83-4.51 [facility] Work Phone: Basophil percentageon 2021 Basophils/100 WBC (Bld) 0.5 % 0-1 [facility] Work Phone: Bilirubin [Mass/Vol] 0.50 mg/dL 0.20-1.00 [facility] Work Phone: Comment on above: For patients on eltr ombopag therapy, use of Dimension [place] TBIL is not recommended. Chloride [Moles/Vol] 102 mmol/L 98-107 [facility] Work Phone: Cholesterol [Mass/Vol] 114 mg/dL <200 [facility] Work Phone: Comment on above: <200 mg/dL Desirable 200-240 mg/dL Borderline >240 mg/dL High Risk Eosinophils/100 WBC (Bld) 1.4 % 0-5 [facility] Work Phone: Glucose [Mass/Vol] 110 mg/dL 74-106 [facility] Work Phone: Comment on above: Fasting Glucose resu lt from 100 to 125 mg/dL suggests IMPAIRED HOMEOSTASIS per A.D.A. criteria. Neutrophils (Bld) [#/Vol] 5.2 10*3/uL 2.0-7.7 [facility] Work Phone: Neutrophils/100 WBC (Bld) 62.6 % 47-70 [facility] Work Phone: Potassium [Moles/Vol] 4.1 mmol/L 3.5-5.1 [facility] Work Phone: Protein [Mass/Vol] 7.6 g/dL 6.4-8.2 [facility] Work Phone: Sodium [Moles/Vol] 137 mmol/L 136-145 [facility] Work Phone: Triglyceride [Mass/Vol] 41 mg/dL [facility] Work Phone: Comment on above: The drugs N-Acetylcy steine and Metamizole may falsely depress this assay.Serum Triglycerides Reference Interval Normal <150 mg/dL Borderline high 150 - 199 mg/dL High 200 - 499 mg/dL Very High > or = 500 mg/dL WBC (Bld) [#/Vol] 8.3 10*3/uL 4.4-11.0 [facility] Work Phone: Blood erythrocytes count (nu mber/volume)on 02-23-2022 RBC (Bld) [#/Vol] 4.16 10*6/uL 4.6-6.2 [facility] Work Phone: Blood hemoglobin measurement (mass/volume)on 02-23-2022 Hemoglobin (Bld) [Mass/Vol] 13.9 g/dL 13.0-16.5 [facility] Work Phone: Blood lymphocytes/100 leukoc yteson 02-23-2022 Lymphocytes/100 WBC (Bld) 28.6 % 19-41 [facility] Work Phone: Blood monocytes/100 leukocyt eson 02-23-2022 Monocytes/100 WBC (Bld) 6.7 % 0-10 [facility] Work Phone: Blood platelet mean volumeon 02-23-2022 Platelet mean volume (Bld) [Entitic vol] 10.6 fL 6.2-12.0 [facility] Work Phone: Determination of erythrocyte mean corpuscular volume (MCV)on 02-23-2022 MCV (RBC) [Entitic vol] 99.0 fL 80-94 [facility] Work Phone: Hematocrit Auto (Bld) [Volum e fraction]on 02-23-2022 Hematocrit (Bld) [Volume fraction] 41.2 % 40-54 [facility] Work Phone: Laboratory - Chemistry and C hemistry - challengeon 02-23-2022 ALP [Catalytic activity/Vol] 52 U/L 45-117 [facility] Work Phone: ALT [Catalytic activity/Vol] 26 U/L 16-61 [facility] Work Phone: CO2 [Moles/Vol] 27.0 mmol/L 21.0-32.0 [facility] Work Phone: Globulin (S) [Mass/Vol] 3.7 g/dL 2.2-4.2 [facility] Work Phone: Urea nitrogen/Creatinine [Mass ratio] 18.8 mg/mg 10-20 [facility] Work Phone: Laboratory - Hematology and Cell countson 02-23-2022 Erythrocyte distribution width (RBC) [Entitic vol] 49.3 fL 35.1-43.9 [facility] Work Phone: Erythrocyte distribution width (RBC) [Ratio] 13.5 % 11.6-14.6 [facility] Work Phone: Immature granulocytes/100 WBC (Bld) 0.200 % 0.0-0.9 [facility] Work Phone: Comment on above: IG% - Immature Granu locytes (promyelocytes, myelocytes and metamyelocytes) > 1% indicates that a LEFT SHIFT is Present. MCH (RBC) [Entitic mass] 33.4 pg 27.0-32.0 [facility] Work Phone: Nucleated RBC/100 WBC (Bld) [Ratio] 0 % 0-5 [facility] Work Phone: MCHC Auto (RBC) [Mass/Vol]on 02-23-2022 MCHC (RBC) [Mass/Vol] 33.7 g/dL 32-36 [facility] Work Phone: No Panel Informationon 02-23 Estimated GFR (MDRD) Amer 147 mL/min >60 [facility] Work Phone: Comment on above: GFR Calc Estimated GFR (MDRD) Non-Af Amer 121 mL/min >60 [facility] Work Phone: Comment on above: Non- GFR Calc Vitamin D 25-Hydroxy 56.2 ng/mL [facility] Work Phone: Comment on above: Vitamin D 25(OH) Sta tus Range Deficiency <20 ng/mL (50nmol/L) Insufficiency 20 - 30 ng/mL (50 - 75 nmol/L) Sufficiency 30 - 100 ng/mL (75 - 250 nmol/L) Toxicity >100 ng/mL (>250 nmol/L) Platelets bldon 02-23-2022 Platelets (Bld) [#/Vol] 202 10*3/uL 150-450 [facility] Work Phone: Serum or plasma albumin kamaljit urement (mass/volume)on 02-23-2022 Albumin [Mass/Vol] 3.9 g/dL 3.2-5.0 [facility] Work Phone: Serum or plasma albumin/glob ulin mass ratioon 02-23-2022 Albumin/Globulin [Mass ratio] 1.1 {ratio} 0.9-2.4 [facility] Work Phone: Serum or plasma calcium kamaljit urement (mass/volume)on 02-23-2022 Calcium [Mass/Vol] 9.2 mg/dL 8.5-10.1 [facility] Work Phone: Serum or plasma cholesterol in HDL measurement (mass/volume)on 02-23-2022 Cholesterol in HDL [Mass/Vol] 41 mg/dL [facility] Work Phone: Comment on above: The drugs N-Acetylcy steine and Metamizole may falsely depress this assay. Reference Range HDL <40 mg/dL Low HDL Cholesterol HDL >or= 60 mg/dL High HDL Cholesterol Serum or plasma cholesterol in VLDL measurement (mass/volume)on 02-23-2022 Cholesterol in VLDL [Mass/Vol] 8 mg/dL 5-40 [facility] Work Phone: Serum or plasma creatinine m easurement (mass/volume)on 02-23-2022 Creatinine [Mass/Vol] 0.69 mg/dL 0.70-1.30 [facility] Work Phone: Comment on above: The validity of the calculated GFR & GFRAA in patients over 70 years has not been determined. Clinical correlation is essential. Serum or plasma low density lipoprotein (LDL) cholesterol measurement (mass/volume)on 02-23-2022 Cholesterol in LDL [Mass/Vol] 65 mg/dL 0-130 [facility] Work Phone: Serum or plasma urea nitroge n measurement (mass/volume)on 02-23-2022 Urea nitrogen [Mass/Vol] 13 mg/dL 7-18 [facility] Work Phone: Thin prep Papanicolaou smear with manual screeningon 02-23-2022 Thin prep Papanicolaou smear with manual screening 17 U/L 15-37 [facility] Work Phone: Thin prep Papanicolaou smear with manual screening 8 5-15 [facility] Work Phone: Whole blood hemoglobin A1c/t otal hemoglobin ratio (mass fraction)on 02-23-2022 HbA1c (Bld) [Mass fraction] 5.6 % 3.8-5.6 [facility] Work Phone: Comment on above: Normal < 5.7 % Predi abetic 5.7 - 6.4 % Diabetic >or= 6.5 % Please note range changes. Absolute lymphocyte counton 11-24-2021 Lymphocytes Auto (Unsp spec) [#/Vol] 2.65 10*3/uL 0.83-4.51 [facility] Work Phone: Basophil percentageon 2021 Basophil percentage 0 SEEN /hpf [facility] Work Phone: Basophils/100 WBC (Bld) 0.4 % 0-1 [facility] Work Phone: Bilirubin [Mass/Vol] 0.30 mg/dL 0.20-1.00 [facility] Work Phone: Comment on above: For patients on eltr ombopag therapy, use of [employer]ension [place] TBIL is not recommended. Chloride [Moles/Vol] 102 mmol/L 98-107 [facility] Work Phone: Cholesterol [Mass/Vol] 105 mg/dL <200 [facility] Work Phone: [phone] Comment on above: <200 mg/dL Desirable 200-240 mg/dL Borderline >240 mg/dL High Risk Eosinophils/100 WBC (Bld) 1.6 % 0-5 [facility] Work Phone: Glucose [Mass/Vol] 99 mg/dL 74-106 [facility] Work Phone: Neutrophils (Bld) [#/Vol] 3.8 10*3/uL 2.0-7.7 [facility] Work Phone: Neutrophils/100 WBC (Bld) 53.9 % 47-70 [facility] Work Phone: Potassium [Moles/Vol] 3.6 mmol/L 3.5-5.1 [facility] Work Phone: Protein [Mass/Vol] 7.9 g/dL 6.4-8.2 [facility] Work Phone: Sodium [Moles/Vol] 134 mmol/L 136-145 [facility] Work Phone: Triglyceride [Mass/Vol] 148 mg/dL [facility] Work Phone: Comment on above: The drugs N-Acetylcy steine and Metamizole may falsely depress this assay.Serum Triglycerides Reference Interval Normal <150 mg/dL Borderline high 150 - 199 mg/dL High 200 - 499 mg/dL Very High > or = 500 mg/dL WBC (Bld) [#/Vol] 7.0 10*3/uL 4.4-11.0 [facility] Work Phone: Bilirubin Test strip Ql (U)o n 11-24-2021 Bilirubin Ql (U) Negative Negative [facility] Work Phone: Blood erythrocytes count (nu mber/volume)on 11-24-2021 RBC (Bld) [#/Vol] 4.30 10*6/uL 4.6-6.2 [facility] Work Phone: Blood hemoglobin measurement (mass/volume)on 11-24-2021 Hemoglobin (Bld) [Mass/Vol] 14.2 g/dL 13.0-16.5 [facility] Work Phone: Blood lymphocytes/100 leukoc yteson 11-24-2021 Lymphocytes/100 WBC (Bld) 38.1 % 19-41 [facility] Work Phone: Blood monocytes/100 leukocyt eson 11-24-2021 Monocytes/100 WBC (Bld) 5.7 % 0-10 [facility] Work Phone: Blood platelet mean volumeon 11-24-2021 Platelet mean volume (Bld) [Entitic vol] 10.8 fL 6.2-12.0 [facility] Work Phone: Determination of erythrocyte mean corpuscular volume (MCV)on 11-24-2021 MCV (RBC) [Entitic vol] 98.1 fL 80-94 [facility] Work Phone: Hematocrit Auto (Bld) [Volum e fraction]on 11-24-2021 Hematocrit (Bld) [Volume fraction] 42.2 % 40-54 [facility] Work Phone: Ketones Test strip Ql (U)on 11-24-2021 Ketones Ql (U) Negative Negative [facility] Work Phone: Laboratory - Chemistry and C hemistry - challengeon 11-24-2021 ALP [Catalytic activity/Vol] 55 U/L 45-117 [facility] Work Phone: ALT [Catalytic activity/Vol] 32 U/L 16-61 [facility] Work Phone: CO2 [Moles/Vol] 24.0 mmol/L 21.0-32.0 [facility] Work Phone: Globulin (S) [Mass/Vol] 3.9 g/dL 2.2-4.2 [facility] Work Phone: Urea nitrogen/Creatinine [Mass ratio] 19.8 mg/mg 10-20 [facility] Work Phone: Laboratory - Hematology and Cell countson 11-24-2021 Erythrocyte distribution width (RBC) [Entitic vol] 49.1 fL 35.1-43.9 [facility] Work Phone: Erythrocyte distribution width (RBC) [Ratio] 13.5 % 11.6-14.6 [facility] Work Phone: Immature granulocytes/100 WBC (Bld) 0.300 % 0.0-0.9 [facility] Work Phone: Comment on above: IG% - Immature Granu locytes (promyelocytes, myelocytes and metamyelocytes) > 1% indicates that a LEFT SHIFT is Present. MCH (RBC) [Entitic mass] 33.0 pg 27.0-32.0 [facility] Work Phone: Nucleated RBC/100 WBC (Bld) [Ratio] 0 % 0-5 [facility] Work Phone: MCHC Auto (RBC) [Mass/Vol]on 11-24-2021 MCHC (RBC) [Mass/Vol] 33.6 g/dL 32-36 [facility] Work Phone: Mucus LM Ql (Urine sed)on Mucus Ql (Urine sed) 0 SEEN /hpf [facility] Work Phone: Nitrite Test strip Ql (U)on 11-24-2021 Nitrite Ql (U) Negative Negative [facility] Work Phone: No Panel Informationon 11-24 Estimated GFR (MDRD) Amer 143 mL/min >60 [facility] Work Phone: Comment on above: GFR Calc Estimated GFR (MDRD) Non-Af Amer 119 mL/min >60 [facility] Work Phone: Comment on above: Non- GFR Calc Thyroid Stimulating Hormone (TSH) 2.12 uIU/mL 0.358-3.74 [facility] Work Phone: Urine Microalbumin/Creatinine Ratio 6.2 mg/g CRE <30 [facility] Work Phone: Vitamin D 25-Hydroxy 57.3 ng/mL [facility] Work Phone: Comment on above: Vitamin D 25(OH) Sta tus Range Deficiency <20 ng/mL (50nmol/L) Insufficiency 20 - 30 ng/mL (50 - 75 nmol/L) Sufficiency 30 - 100 ng/mL (75 - 250 nmol/L) Toxicity >100 ng/mL (>250 nmol/L) Platelets bldon 11-24-2021 Platelets (Bld) [#/Vol] 230 10*3/uL 150-450 [facility] Work Phone: Protein Test strip Ql (U)on 11-24-2021 Protein Ql (U) Negative Negative [facility] Work Phone: Serum or plasma albumin kamaljit urement (mass/volume)on 11-24-2021 Albumin [Mass/Vol] 4.0 g/dL 3.2-5.0 [facility] Work Phone: Serum or plasma albumin/glob ulin mass ratioon 11-24-2021 Albumin/Globulin [Mass ratio] 1.0 {ratio} 0.9-2.4 [facility] Work Phone: Serum or plasma calcium kamaljit urement (mass/volume)on 11-24-2021 Calcium [Mass/Vol] 9.4 mg/dL 8.5-10.1 [facility] Work Phone: Serum or plasma cholesterol in HDL measurement (mass/volume)on 11-24-2021 Cholesterol in HDL [Mass/Vol] 40 mg/dL [facility] Work Phone: Comment on above: The drugs N-Acetylcy steine and Metamizole may falsely depress this assay. Reference Range HDL <40 mg/dL Low HDL Cholesterol HDL >or= 60 mg/dL High HDL Cholesterol Serum or plasma cholesterol in VLDL measurement (mass/volume)on 11-24-2021 Cholesterol in VLDL [Mass/Vol] 30 mg/dL 5-40 [facility] Work Phone: Serum or plasma creatinine m easurement (mass/volume)on 11-24-2021 Creatinine [Mass/Vol] 0.71 mg/dL 0.70-1.30 [facility] Work Phone: Comment on above: The validity of the calculated GFR & GFRAA in patients over 70 years has not been determined. Clinical correlation is essential. Serum or plasma low density lipoprotein (LDL) cholesterol measurement (mass/volume)on 11-24-2021 Cholesterol in LDL [Mass/Vol] 35 mg/dL 0-130 [facility] Work Phone: Serum or plasma urea nitroge n measurement (mass/volume)on 11-24-2021 Urea nitrogen [Mass/Vol] 14 mg/dL 7-18 [facility] Work Phone: Squamous epithelial cells de tection in urine sediment by light microscopyon 11-24-2021 Epithelial cells.squamous LM Ql (Urine sed) 0 SEEN /hpf [facility] Work Phone: Thin prep Papanicolaou smear with manual screeningon 11-24-2021 Thin prep Papanicolaou smear with manual screening 19 U/L 15-37 [facility] Work Phone: Thin prep Papanicolaou smear with manual screening 8 5-15 [facility] Work Phone: Thin prep Papanicolaou smear with manual screening 9.3 mg/L NO RANGE EST. [facility] Work Phone: Urine blood detectionon 02-0 RBC Ql (U) 10 /ul Negative [facility] Work Phone: RBC Ql (U) 0 SEEN /hpf [facility] Work Phone: Urine clarityon 11-24-2021 Clarity (U) Clear Clear [facility] Work Phone: Urine color determinationon 11-24-2021 Color (U) Yellow Yellow [facility] Work Phone: Urine creatinine measurement (mass/volume)on 11-24-2021 Creatinine (U) [Mass/Vol] 151.00 mg/dL NO RANGE EST. [facility] Work Phone: Urine glucose detectionon Glucose Ql (U) Normal mg/dl Normal [facility] Work Phone: Urine leukocyte esterase det ection by dipstickon 11-24-2021 Leukocyte esterase Test strip Ql (U) Negative Negative [facility] Work Phone: Urine pHon 11-24-2021 pH (U) 6.0 [pH] [facility] Work Phone: Urine sediment bacteria coun t by microscopy (number/high power field)on 11-24-2021 Bacteria LM.HPF (Urine sed) [#/Area] 0 /[HPF] None Seen [facility] Work Phone: Urine specific gravity measu rementon 11-24-2021 Specific gravity (U) [Rel density] 1.020 [facility] Work Phone: Urobilinogen Auto test strip Ql (U)on 11-24-2021 Urobilinogen Ql (U) Normal mg/dl Normal [facility] Work Phone: Whole blood hemoglobin A1c/t otal hemoglobin ratio (mass fraction)on 11-24-2021 HbA1c (Bld) [Mass fraction] 5.5 % 3.8-5.6 [facility] Work Phone: Comment on above: Normal < 5.7 % Predi abetic 5.7 - 6.4 % Diabetic >or= 6.5 % Please note range changes. Encounters Encounter Date Encounter Type Care Provider Facility Start: 02-12-2025 End: 02-12-[address] Pito Avitia MD Work Phone: [facility] Work Phone: Start: 02-12-2025 End: 02-12-[address] [facility] Start: 02-12-2025 End: 02-12-2025 ambulatory Pito Avitia Facility:[facility] Start: 01-23-2025 End: 01-23-[address] Pito Avitia MD Work Phone: [facility] Work Phone: Start: 01-23-2025 End: 01-23-[address] [facility] Start: 01-23-2025 End: 01-23-2025 ambulatory Pito Avitia Facility:[facility] Start: 09-25-2024 End: 09-25-2024 ambulatory [facility] Kleber Avitia Facility:[facility] Start: 05-31-2024 End: 05-31-2024 [facility] Start: 05-24-2024 End: 05-24-2024 ambulatory Pito Avitia Facility:[facility] Start: 02-09-2024 End: 02-09-2024 ambulatory [facility] Work Phone: Start: 02-09-2024 End: 02-09-2024 [facility] Start: 01-31-2024 End: 01-31-2024 ambulatory [facility] Work Phone: Start: 01-31-2024 End: 01-31-2024 Patient encounter procedure [facility] Work Phone: Start: 12-28-2023 End: 12-28-2023 ambulatory [facility] Work Phone: Start: 12-28-2023 End: 12-28-2023 Patient encounter procedure [facility] Work Phone: Start: 06-14-2023 End: 06-14-2023 ambulatory [facility] Work Phone: Start: 06-14-2023 End: 06-14-2023 Patient encounter procedure [facility]-Pulmonary Services/Neurology Work Phone: Start: 05-24-2023 End: 05-24-2023 Patient encounter procedure [facility]-Cat Scan, [facility] Work Phone: Start: 05-20-2023 End: 05-20-2023 ambulatory [facility] Work Phone: Start: 05-20-2023 End: 05-20-2023 [facility] Start: 02-07-2023 End: 02-07-2023 ambulatory [facility] Work Phone: Start: 02-07-2023 End: 02-07-2023 Patient encounter procedure [facility]-Cat Scan, [facility] Start: 02-01-2023 End: 02-01-2023 ambulatory [facility] Work Phone: Start: 02-01-2023 End: 02-01-2023 [facility] Start: 01-20-2023 End: 01-20-2023 ambulatory [facility] Work Phone: Start: 01-20-2023 End: 01-20-2023 [facility] Start: 10-29-2022 End: 10-29-2022 ambulatory [facility] Work Phone: Start: 10-29-2022 End: 10-29-2022 Patient encounter procedure [facility] Start: 06-22-2022 End: 06-22-2022 ambulatory [facility] Work Phone: Start: 06-22-2022 End: 06-22-2022 Patient encounter procedure [facility] Start: 02-23-2022 End: 02-23-2022 Patient encounter procedure [facility] Start: 11-24-2021 End: 11-24-2021 Patient encounter procedure [facility] Start: 12-29-2020 ambulatory MD FAUSTINO GARCIA Fa cility:[facility] Procedures Date Procedure Procedure Detail Performing Clinician Start: 02-12-[address] Pito nair MD Work Phone: Start: 02-09-2024 CT of abdomen with contrast Start: 02-09-2024 CT of chest Start: 12-28-2023 Dual energy X-ray absorptiometry Start: 05-24-2023 CT of chest without contrast Start: 02-07-2023 CT of chest Start: 02-01-2023 X-ray of cervical spine Start: 01-20-2023 X-ray of lumbar spin e, two or three views Start: 06-22-2022 Plain chest X-ray Plan of Treatment Date Care Activity Detail Author Start: 12-28-2023 Dual energy X-ray absorptiometry Dexa Bone Density Study [facility] Payers Date Payer Category Payer Private Health Insurance [id number] 2024 Self-pay [id number] 2020 Private Health Insurance 1955 Unknown [id number] Private Health Insurance [id number] Unknown [id number] [id number] Unknown [id number] [id number] Unknown [id number] [id number] Unknown [id number] [id number] [id number] Unknown [id number] [id number] [id number] Social History Date Type Detail [facility] Work Phone: Start: 1955 Sex Assigned At Male [facility] Tobacco smoking stat [facility] Unknown if ever smoked [facility] Work Phone: Start: 01-29-2025 End: 02-15-2025 Sex Male (finding) [facility] Radiology Diagnostic study note 02-12-2025 Note Date & Type Note Facility 02-12-2025 Radiology Diagnostic study note [facility] Imaging Services [address] [place] [id number] Lung Screening MR#: [id number] Acct: [id number] Name: FOSTER WORTHINGTON Rep #: [id number] : 1955 M 69 From: Nickolas Trammell MD PCP: Dr. Pito Avitia MD Status: G [facility] Study:Low Dose CT Lung Screening Date of Exam : 02/12/25 Exam# [id number] Ordering Dr: Pito Avitia MD PROCEDURE: LOW DOSE CT LUNG SCREENING 02/12/2025 REASON FOR EXAM: SMOKER Current smoker. 1 pack per day for 55 years. TECHNIQUE: Low Dose CT Lung screening without contrast. Coronal and Sagittal reconstructionseries were provided. One or more dose reduction techniques were used (e.g., Automated exposure control, adjustment of the mA and/or kV according to patient size, use of iterative reconstruction technique). REFERENCE LINK: [place] Lung-RADS RADIATION DOSE SUMMARY: CTDlvol: 2.39 mGy DLP: 82.5 mGycm COMPARISON: None. FINDINGS: PULMONARY NODULES: (Only nodules >3mm are reported) Nodules described below are on series 1 unless otherwise specified. Pulmonary Nodules: No suspicious pulmonary nodules. Hardware:None Lymph Nodes:No significant mediastinal or hilar lymph nodes. Heart and Vasculature:Coronary artery calcifications are noted.Atherosclerotic calcifications of the thoracic aorta. Thoracic aorta and pulmonary arteries have normal contours; noncontrast technique limits evaluation. Coronary Artery Calcifications: Present Lungs and Airways: Mild emphysematous changes are present. Scarring at the lungapices. Pleura:Unremarkable Upper Abdomen:Unremarkable Bones:Prior vertebroplasty of a mid dorsal vertebrae with loss of height. CT/Low Dose CT Lung Screening IMPRESSION: No suspicious pulmonary nodules seen. Coronary artery calcification (CAC) is is present Lung-RADS Category: 2 BENIGN (BASED ON IMAGING FEATURES OR INDOLENT BEHAVIOR). RECOMMEND 12-MONTH SCREENING LDCT. Other Significant Findings: None. Reading Location: [place] [address] CC: Dr. Pito Avitia MD ~ Campaign Coordinator: Signed [facility] Clinical Note 07-21-2021 Note Date & Type [...] Megan Durán PA-C Danny ADORNO, Marco Solomon [facility] Clinical Note 07-15-2021 Note Date & Type Note Facility 07-15-2021 Note Patient Education Ma terials Name: Foster Worthington Current Date: 07/15/2021 09:57:26 [place] : 1955 The following sheet(s) are the [...] they can be restarted right away. ? [id number] [employer]. [address] [place] [address]. All rights reserved. This information is not intended as a substitute for professional medical care. Always follow your healthcare professional's instructions. [facility] Evaluation note Note Date & Type Note Facility Evaluation note No assessment information availa ble [facility] Work Phone: Reason for referral (narrative) Note Date & Type Note Facility Reason for referral (narrative) No reason for referral information available [facility] Work Phone: Summary Purpose Family History No Family History Records FoundNo Family History Records Found Advance Directives No Advanced Directives Records FoundNo Advanced Directives Records Found Chief Complaint and Reason for Visit Chief Complaint EORDER Chief Complaint E ORDER Chief Complaint EORDER LABS AND XRAY Chief Complaint EORDER LABS AND XRAY Radiculopathy, cervical region NICOTINE DEP Chief Complaint Radiculopathy, cervi mayela region NICOTINE DEP EORDER Other nonspecific abnormal finding of lung field Chief Complaint EORDER Other nonspecific abnormal finding of lung field PRE OP Chief Complaint OSTEO Chief Complaint OSTEO EORDER Chief Complaint OSTEO EORDER SCREENING Chief Complaint Admit Date EORDERS January 23, 2025 10:1 3am Chief Complaint Admit Date EORDERS January 23, 2025 10:1 3am SMOKER February 12, 2025 2:5 0pm Additional Source Comments (unrecognized sect ion and content) No Status Records FoundNo Status Records Found INFORMATION SOURCE (unrecogn ized section and content) DATE CREATED AUTHOR 09/11/2021 [facility] DATE CREATED AUTHOR AUTHOR'S ORGANIZ ATION 02/16/2025 [facility] Goals (unrecognized section and content) Goals may be documented in a n alternate sectionGoals may be documented in an alternate sectionGoals may be documented in an alternate sectionGoals may be documented in an alternate sectionGoals may be documented in an alternate sectionGoals may be documented in an alternate sectionGoals may be documented in an alternate sectionGoals may be documented in an alternate sectionGoals may be documented in an alternate sectionGoals may be documented in an alternate sectionGoals may be documented in an alternate sectionGoals may be documented in an alternate sectionGoals may be documented in an alternate section Care Teams (unrecognized sec tion and content) Team Status: Active Member Role Status Dates Dr. Pito Avitia MD Primary Care Provider Active Team Status: Inactive Member Role Status Dates Dr. Pito Avitia MD Primary Care Pr ovider, Attending Provider, Referring Provider Active Team Status: Active Member Role Status Dates Dr. Pito Avitia MD Primary Care Provider, Attend ing Provider Active Team Status: Inactive Member Role Status Dates Dr. Pito Avitia MD Primary Care Provider, Attend ing Provider Active Team Status: Active Member Role Status Dates Dr. Pito Avitia MD Primary Care Provider Active Dr. Juan Briones MD Attending Provider, Referrin g Provider Active Team Status: Inactive Member Role Status Dates Dr. Pito Avitia MD Primary Care Provider Active Dr. Juan Briones MD Attending Provider, Referrin g Provider Active Team Status: Inactive Member Role Status Dates Dr. Pito Avitia MD Primary Care Provider Active GENARO Frey Attending Provider, Referring Provide r Active Team Status: Inactive Member Role Status Dates Dr. Pito Avitia MD Primary Care Provider Active Start: January 23, 2025 End: January 23, 2025 Dr. Pito Avitia MD Attending Provider Active Start: January 23, 2025 End: January 23, 2025 Dr. Pito Avitia MD Referring Provider Active Start: January 23, 2025 End: January 23, 2025 Team Status: Inactive Member Role Status Dates Dr. Pito Avitia MD Primary Care Provider Active Start: February 12, 2025 End: February 12, 2025 Dr. Pito Avitia MD Attending Provider Active Start: February 12, 2025 End: February 12, 2025 Dr. Pito Avitia MD Referring Provider Active Start: February 12, 2025 End: February 12, 2025 FOR RECORDS PERTAINING TO PATIENTS WHO ARE [...] BE BASED ON THE PRIMARY CLINICAL RECORDS. [facility] [employer] provides no warranty or guarantee of the accuracy or completeness of information in this document.
[2025-06-07 07:53] LABS: Mucous, Urine 0 SEEN /hpf (<or=2+); Squamous Epithelial Cells - UA 0 SEEN /hpf (0-5)
[2025-06-07 10:34] LABS: Hematocrit 39.6 % (40-54); Hemoglobin 13.7 g/dL (13.0-16.5); Immature Granulocytes Count 0.050 X10^3/uL (0.0-0.0); Mean Corp Hgb Conc 34.6 g/dL (32-36); Mean Corpuscular Volume 99.0 fL (80-94); Mean Platelet Vol. 10.0 fl (6.2-12.0); NRBC Flagged by Analyzer 0 % (0-5); Platelet Count 220 K/mm3 (150-450); RBC Distribution Width CV 13.4 % (11.6-14.6); RBC Distribution Width SD 48.3 fl (35.1-43.9); Red Blood Count 4.00 M/mm3 (4.6-6.2); White Blood Count 8.4 K/mm3 (4.4-11.0)
[2025-06-07 10:57] LABS: AST(SGOT) 22 U/L (<=37); Alanine Aminotransfer ALT/SGPT 28 U/L (<=46); Albumin, Serum 4.3 g/dL (3.4-4.8); Alkaline Phosphatase 50 U/L (40-129); Anion Gap 13 (5-15); BUN 13 mg/dL (4-19); BUN/Creat Ratio 18.6 RATIO (10-20); Calcium,Total 9.7 mg/dL (7.6-11.0); Carbon Dioxide 24.1 mmol/L (21.0-32.0); Chloride 98 mmol/L (98-108); Cholesterol 114 mg/dL (<=200); Globulin 2.7 g/dL (2.2-4.2); Glucose 103 mg/dL (70-99); Low Density Lipoprotein Calc. 53 mg/dL; Potassium 4.0 mmol/L (3.3-5.1); Triglycerides 119 mg/dL; Very Low Density Lipoprotein 24 mg/dL (5-40); cholesterol:hdl ratio screen 3.05
[2025-06-07 10:59] LABS: Color, Urine Yellow (Yellow); Glucose, Dipstick Normal (Normal); Ketone-Dipstick Negative (Negative); Leukocyte Esterase-Dipstick Negative /ul (Negative); Nitrite-Dipstick Negative (Negative); Occult Blood-Urine 25 /ul (Negative); Protein-Dipstick Negative (Negative); Specific Gravity, Urine 1.010 (1.002-1.030); Urine Bilirubin Dipstick Negative (Negative)
[2025-06-07 11:17] LABS: Red Blood Cells-Urine 0-5 SEEN /hpf (0-5)
== END | disposition home or self-care (01) ==
LOC: MTLAB 07:43
PROVIDERS: PCP Family Medicine; Referring Provider Family Medicine; Visit Provider Family Medicine
DX: E11.8 Type 2 diabetes mellitus with unspecified complications (principal); M81.0 Age-related osteoporosis without current pathological fracture
CPT/HCPCS: 80053; 80061; 81001; 83036; 85025

== ENCOUNTER → 2025-06-27 | Outpatient (CLI) | payer MEDICARE, SELFPAY ==
--- NOTE | 2025-06-27 15:57 | CT_ITS ---
PROCEDURE: ABDOMEN WITH IV CONTRAST 06/27/2025 REASON FOR EXAM: ADRENAL MASS TECHNIQUE: Procedure Code: CTABDW Modality: CT Procedure: ABDOMEN WITH IV CONTRAST Multiplanar Sagittal and Coronal images were obtained. One or more dose reduction techniques were used (e.g., Automated exposure control, adjustment of the mA and/or kV according to patient size, use of iterative reconstruction technique. CONTRAST: Isovue 370 VOLUME: 100 mL RADIATION DOSE SUMMARY: CTDlvol: 25 mGy DLP: 479 mGycm COMPARISON: January 2024. FINDINGS: Lung bases: Negative. ABDOMEN Liver: Mild fatty infiltration of the liver. Biliary system: Negative. Negative for intrahepatic or extrahepatic ductal dilatation. Gallbladder: Negative. Negative for cholecystitis. Spleen: Negative. Pancreas: Negative. Adrenals: Moderate bilateral adrenal gland fullness, stable. Kidneys: Horseshoe kidney, normal variant. Negative for kidney stones, cysts or masses. Bowel: Mild diverticulosis. Mild increased stool in the colon. Negative for small or large-bowel obstruction. Appendix: Not imaged. Vasculature: [id number] atherosclerotic vascular calcifications of the abdominal aorta and its branches. Peritoneum / Retroperitoneum: Negative. Bones and Soft Tissues: Moderate degenerative changes of the lumbar spine hips and pelvis. CT/Abdomen WITH IV Contrast IMPRESSION: Mild fatty liver. Stable appearance of the adrenal glands likely adrenal adenomas. Reading Location: [id number]
== END | disposition home or self-care (01) ==
LOC: CT 15:55
PROVIDERS: PCP Family Medicine; Referring Provider Family Medicine; Visit Provider Family Medicine
DX: E27.8 Other specified disorders of adrenal gland (principal)
CPT/HCPCS: 74160; Q9967

== ENCOUNTER → 2025-07-09 | Outpatient (CLI) | payer MEDICARE, SELFPAY ==
--- NOTE | 2025-07-09 14:12 | RAD_ITS ---
PROCEDURE: CHEST PA AND LATERAL 07/09/2025 REASON FOR EXAM: COPD FLAIR TECHNIQUE: Procedure Code: RADCXR Modality: DX Procedure: CHEST PA AND LATERAL COMPARISON: 02/12/2025 CT. FINDINGS: The heart is normal in size. The lungs are clear. No acute osseous abnormalities. Midthoracic vertebroplasty. RAD/Chest PA and Lateral IMPRESSION: NO ACUTE FINDINGS. Reading Location: [id number]
== END | disposition home or self-care (01) ==
LOC: MTRAD 14:12
PROVIDERS: PCP Family Medicine; Referring Provider Family Medicine; Visit Provider Family Medicine
DX: J44.1 Chronic obstructive pulmonary disease with (acute) exacerbation (principal)
CPT/HCPCS: 71046

== ENCOUNTER → 2025-10-03 | Outpatient (CLI) | payer MEDICARE, SELFPAY ==
[2025-10-03 07:38] LABS: Mucous, Urine 0 SEEN /hpf (<or=2+)
--- OUTSIDE RECORDS SUMMARY | 2025-10-03 07:51 | XMS RPT_ITS | CCD ---
Author Organization [facility] CliniSymd Care Team Providers Care Furnace Maintenance Name Role Phone MD FAUSTINO GARCIA Attending UnavailMD FAUSTINO Major Primary Care Unavailalaina Avitia MD, Dr. Pito Calles Primary Care Provider Adore ADORNO, Dr. Pito Calles Attending Provider [phone] Dr. Pito Avitia MD Referring Provider Dr. Pito Avitia MD Primary Care Provider [phone] Adore ADORNO, Dr. Pito Calles Attending Provider [phone] Dr. Pito Avitia MD Referring Provider [phone] Pito Avitia Attending Unavailable Pito Avitia Referring Unavailable Pito Avitia Primary Care Unavailable Pito Avitia Attending Unavailable Pito Avitia Referring Unavailable Pito Avitia Primary Care Unavailable Pito Avitia Primary Care Unavailable Pito Avitia Attending Unavailable Pito Avitia Referring Unavailable Pito Avitia Primary Care Unavailable Pito Avitia Attending Unavailable Pito Avitia Referring Unavailable Pito Avitia Primary Care Unavailable Pito Avitia Attending Unavailable Pito Avitia Referring Unavailable Pito Avitia Attending Unavailable Pito Avitia Referring Unavailable Pito Avitia Primary Care Unavailable Dr. Pito Avitia MD Primary Care Physician Adore ADORNO, Dr. Pito Calles Attending Physician Problems Problem Classification Problem Date Documented Da te Episodic/Chronic Chronic obstructive pulmonary disease and bronchiectasis (1 source) Chronic obstructive pulmonary disease with (acute) exacerbation; Translations: [Chronic obstructive pulmonary disease with (acute) exacerbation] Onset: 07-15-2025 Chronic Diabetes mellitus with complications (1 source) Type 2 diabetes mellitus with unspecified complications; Translations: [Type 2 diabetes mellitus with unspecified complications] Onset: 06-14-2025 Chronic Osteoporosis (1 source) Age-related osteoporosis without current pathological fracture; Translations: [Age-related osteoporosis without current pathological fracture] Onset: 10-25-2024 Chronic Other endocrine disorders (1 source) Other specified disorders of adrenal gland; Translations: [Other specified disorders of adrenal gland] Onset: 07-08-2025 Chronic Substance-related disorders (1 source) Nicotine dependence, cigarettes, uncomplicated; Translations: [Nicotine dependence, cigarettes, uncomplicated] Onset: 02-15-2025 Chronic Results Test Name Value Interpretation Reference Range Facility Chest PA and Lateralon 07-09 Chest PA and Lateral [facility] [address] [place] [address] Chest PA and Lateral MR#: [id number] Acct: [id number] Name: ANDERFOSTER L Rep #: [id number] : 1955 M 70 From: Markus Thomason MD PCP: Dr. Pito Avitia MD Status: [facility] CLI Study: Chest PA and Lateral Date of Exam: 07/09/25 Exam# [id number] Ordering Dr: Pito Avitia MD PROCEDURE: CHEST PA AND LATERAL 07/09/2025 REASON FOR EXAM: COPD FLAIR TECHNIQUE: Procedure Code: RADCXR Modality: DX Procedure: CHEST PA AND LATERAL COMPARISON: 02/12/2025 CT. FINDINGS: The heart is normal in size. The lungs are clear. No acute osseous abnormalities. Midthoracic vertebroplasty. RAD/Chest PA and Lateral IMPRESSION: NO ACUTE FINDINGS. Reading Location: [id number] CC: Dr. Pito Avitia MD [employer] Supervisor: Signed Normal [facility] Abdomen WITH IV Contraston 0 06-27-2025 Abdomen WITH IV Contrast [facility] Services [address], [place] [id number] Abdomen WITH IV Contrast MR#: [id number] Acct: [id number] Name: FOSTER WORTHINGTON Rep #: [id number] : 1955 M 70 From: Tato Huff MD PCP: Dr. Pito Avitia MD Status: REG CLI Study: Abdomen WITH IV Contrast Date of Exam: 5 Exam# [id number] Ordering Dr: Pito Avitia MD PROCEDURE: ABDOMEN WITH IV CONTRAST 06/27/2025 REASON FOR EXAM: ADRENAL MASS TECHNIQUE: Procedure Code: CTABDW Modality: CT Procedure: ABDOMEN WITH IV CONTRAST Multiplanar Sagittal and Coronal images were obtained. One or more dose reduction techniques were used (e.g., Automated exposure control, adjustment of the mA and/or kV according to patient size, use of iterative reconstruction technique. CONTRAST: Isovue 370 VOLUME: 100 mL RADIATION DOSE SUMMARY: CTDlvol: 25 mGy DLP: 479 mGycm COMPARISON: January 2024. FINDINGS: Lung bases: Negative. ABDOMEN Liver: Mild fatty infiltration of the liver. Biliary system: Negative. Negative for intrahepatic or extrahepatic ductal dilatation. Gallbladder: Negative. Negative for cholecystitis. Spleen: Negative. Pancreas: Negative. Adrenals: Moderate bilateral adrenal gland fullness, stable. Kidneys: Horseshoe kidney, normal variant. Negative for kidney stones, cysts or masses. Bowel: Mild diverticulosis. Mild increased stool in the colon. Negative for small or large-bowel obstruction. Appendix: Not imaged. Vasculature: Gwxo-gm-bzjpfjvo atherosclerotic vascular calcifications of the abdominal aorta and its branches. Peritoneum / Retroperitoneum: Negative. Bones and Soft Tissues: Moderate degenerative changes of the lumbar spine hips and pelvis. CT/Abdomen WITH IV Contrast IMPRESSION: Mild fatty liver. Stable appearance of the adrenal glands likely adrenal adenomas. Reading Location: [facility] CC: Dr. Pito Avitia MD [employer] Supervisor: Signed Normal [facility] Absolute lymphocyte countOrd ered By: Pito Avitia on 06-07-2025 Lymphocytes Auto (Unsp spec) [#/Vol] 2.87 10*3/uL 0.83-4.51 [facility] Absolute neutrophil countOrd ered By: Pito Avitia on 06-07-2025 Neutrophils (Bld) [#/Vol] 4.7 10*3/uL 2.0-7.7 [facility] Anion gap in Serum or Plasma Ordered By: Pito Avitia on 06-07-2025 Anion gap [Moles/Vol] 13 mmol/L 03-07 [facility] Automated lymphocyte count a s percentage of total leukocytesOrdered By: Pito Avitia on 06-07-2025 Lymphocytes/100 WBC Auto (Unsp spec) 34.2 % [facility] BUN/creatinine ratioOrdered By: Pito Avitia on 06-07-2025 Urea nitrogen/Creatinine [Mass ratio] 18.6 mg/mg - [facility] Basophil percentageOrdered B y: Pito Avitia on 06-07-2025 Basophils/100 WBC (Bld) 0.5 % 0-1 [facility] Bilirubin Test strip Ql (U)O rdered By: Pito Avitia on 06-07-2025 Bilirubin Ql (U) Negative Negative [facility] Bilirubin, totalOrdered By: Pito Avitia on 06-07-2025 Bilirubin [Mass/Vol] 0.37 mg/dL 0.00-1.30 [facility] CBC W/Diff, Automatedon 05-24 Absolute Lymph 2.87 X10 3/uL Normal 0.83-4.51 [facility] Comment on above: Order Comment: Order Date: 01/23/25 Order Info: [id number] - CBCD Performed By: #### L 500.4100, L501.9985, L500.4050, L100.0100 #### [facility] [address] [place], [address] Absolute Neut 4.7 X10 3/uL Normal 2.0-7.7 [facility] Comment on above: Order Comment: Order Date: 01/23/25 Order Info: [id number] - CBCD Performed By: #### L 500.4100, L501.9985, L500.4050, L100.0100 #### [facility] [address] [place], [address] Basophils/100 WBC (Bld) 0.5 % Normal 0-1 [facility] Comment on above: Order Comment: Order Date: 01/23/25 Order Info: 0184-1 - CBCD Performed By: #### L 500.4100, L501.9985, L500.4050, L100.0100 #### [facility] [address] [place], [address] Eosinophils/100 WBC (Bld) 1.4 % Normal 0-5 [facility] Comment on above: Order Comment: Order Date: 01/23/25 Order Info: 0184-1 - CBCD Performed By: #### L 500.4100, L501.9985, L500.4050, L100.0100 #### [facility] [address] [place], [address] Erythrocyte distribution width (RBC) [Ratio] 13.4 % Normal 11.6-14.6 [facility] Comment on above: Order Comment: Order Date: 01/23/25 Order Info: 0184-1 - CBCD Performed By: #### L 500.4100, L501.9985, L500.4050, L100.0100 #### [facility] [address] [place], [address] Hematocrit (Bld) [Volume fraction] 39.6 % Low 40-54 [facility] Comment on above: Order Comment: Order Date: 01/23/25 Order Info: 0184-1 - CBCD Performed By: #### L 500.4100, L501.9985, L500.4050, L100.0100 #### [facility] [address] [place], [address] Hemoglobin (Bld) [Mass/Vol] 13.7 g/dL Normal 13.0-16.5 [facility] Comment on above: Order Comment: Order Date: 01/23/25 Order Info: 0184-1 - CBCD Performed By: #### L 500.4100, L501.9985, L500.4050, L100.0100 #### [facility] [address] [place], [address] IG% 0.600 Normal 0.0-0.9 [facility] Comment on above: Order Comment: Order Date: 01/23/25 Order Info: 0184-1 - CBCD Result Comment: IG% - Immature Granulocytes (promyelocytes, myelocytes and metamyelocytes) > 1% indicates that a LEFT SHIFT is Present. Performed By: #### L 500.4100, L501.9985, L500.4050, L100.0100 #### [facility] [address] [place], [address] Lymphocytes/100 WBC (Bld) 34.2 % Normal 19-41 [facility] Comment on above: Order Comment: Order Date: 01/23/25 Order Info: 0184-1 - CBCD Performed By: #### L 500.4100, L501.9985, L500.4050, L100.0100 #### [facility] [address] [place], [address] MCH (RBC) [Entitic mass] 34.3 pg High 27.0-32.0 [facility] Comment on above: Order Comment: Order Date: 01/23/25 Order Info: 0184-1 - CBCD Performed By: #### L 500.4100, L501.9985, L500.4050, L100.0100 #### [facility] [address] [place], [address] MCHC (RBC) [Mass/Vol] 34.6 g/dL Normal 32-36 [facility] Comment on above: Order Comment: Order Date: 01/23/25 Order Info: 0184-1 - CBCD Performed By: #### L 500.4100, L501.9985, L500.4050, L100.0100 #### [facility] [address] [place], [address] MCV (RBC) [Entitic vol] 99.0 fL High 80-94 [facility] Comment on above: Order Comment: Order Date: 01/23/25 Order Info: 0184-1 - CBCD Performed By: #### L 500.4100, L501.9985, L500.4050, L100.0100 #### [facility] [address] [place], [address] Monocytes/100 WBC (Bld) 7.3 % Normal 0-10 [facility] Comment on above: Order Comment: Order Date: 01/23/25 Order Info: 0184-1 - CBCD Performed By: #### L 500.4100, L501.9985, L500.4050, L100.0100 #### [facility] [address] [place], [address] Neutrophils/100 WBC (Bld) 56.0 % Normal 47-70 [facility] Comment on above: Order Comment: Order Date: 01/23/25 Order Info: 0184-1 - CBCD Performed By: #### L 500.4100, L501.9985, L500.4050, L100.0100 #### [facility] [address] [place], [address] Nucleated RBC (Bld) [#/Vol] 0 10*3/uL Normal 0-5 [facility] Comment on above: Order Comment: Order Date: 01/23/25 Order Info: 0184-1 - CBCD Performed By: #### L 500.4100, L501.9985, L500.4050, L100.0100 #### [facility] [address] [place], [address] Platelet mean volume (Bld) [Entitic vol] 10.0 fL Normal 6.2-12.0 [facility] Comment on above: Order Comment: Order Date: 01/23/25 Order Info: 0184-1 - CBCD Performed By: #### L 500.4100, L501.9985, L500.4050, L100.0100 #### [facility] [address] [place], [address] Platelets (Bld) [#/Vol] 220 10*3/uL Normal 150-450 [facility] Comment on above: Order Comment: Order Date: 01/23/25 Order Info: 0184-1 - CBCD Performed By: #### L 500.4100, L501.9985, L500.4050, L100.0100 #### [facility] [address] [place], [address] RBC (Bld) [#/Vol] 4.00 10*6/uL Low 4.6-6.2 [facility] Comment on above: Order Comment: Order Date: 01/23/25 Order Info: 0184-1 - CBCD Performed By: #### L 500.4100, L501.9985, L500.4050, L100.0100 #### [facility] [address] [place], [address] RDW SD 48.3 fl High 35.1-43.9 [facility] Comment on above: Order Comment: Order Date: 01/23/25 Order Info: 0184-1 - CBCD Performed By: #### L 500.4100, L501.9985, L500.4050, L100.0100 #### [facility] [address] [place], [address] WBC (Bld) [#/Vol] 8.4 10*3/uL Normal 4.4-11.0 [facility] Comment on above: Order Comment: Order Date: 01/23/25 Order Info: 0184-1 - CBCD Performed By: #### L 500.4100, L501.9985, L500.4050, L100.0100 #### [facility] [address] [place], [address] Calculated very low density lipoprotein (VLDL) cholesterol measurementOrdered By: Pito Avitia on 06-07-2025 Calculated very low density lipoprotein (VLDL) cholesterol measurement 24 mg/dL 5-40 [facility] Carbon dioxide, total [Moles /volume] in Central venous bloodOrdered By: Pito Avitia on 06-07-2025 CO2 [Moles/Vol] 24.1 mmol/L 21.0-32.0 [facility] Chloride assayOrdered By: Shauna Avitia on 06-07-2025 Chloride [Moles/Vol] 98 mmol/L 98-108 [facility] Comprehensive Metabolic Prof ilon 06-07-2025 Albumin [Mass/Vol] 4.3 g/dL Normal 3.4-4.8 [facility] Comment on above: Order Comment: Order Date: 01/23/25 Order Info: [id number] - CMP Order Info: [id number] - LIPID Performed By: #### L 500.4100, L501.9985, L500.4050, L100.0100 #### [facility] [address] [place], [address] Albumin/Globulin [Mass ratio] 1.6 {ratio} Normal 0.9-2.4 [facility] Comment on above: Order Comment: Order Date: 01/23/25 Order Info: [id number] - CMP Order Info: [id number] - LIPID Performed By: #### L 500.4100, L501.9985, L500.4050, L100.0100 #### [facility] [address] [place], [address] ALK PHOS 50 U/L Normal 40-129 [facility] Comment on above: Order Comment: Order Date: 01/23/25 Order Info: [id number] - CMP Order Info: [id number] - LIPID Performed By: #### L 500.4100, L501.9985, L500.4050, L100.0100 #### [facility] [address] [place], [address] ALT [Catalytic activity/Vol] 28 U/L Normal <=46 [facility] Comment on above: Order Comment: Order Date: 01/23/25 Order Info: [id number] - CMP Order Info: [id number] - LIPID Performed By: #### L 500.4100, L501.9985, L500.4050, L100.0100 #### [facility] [address] [place], [address] AST [Catalytic activity/Vol] 22 U/L Normal <=37 [facility] Comment on above: Order Comment: Order Date: 01/23/25 Order Info: [id number] - CMP Order Info: [id number] - LIPID Performed By: #### L 500.4100, L501.9985, L500.4050, L100.0100 #### [facility] [address] [place], [address] Bilirubin [Mass/Vol] 0.37 mg/dL Normal 0.00-1.30 [facility] Comment on above: Order Comment: Order Date: 01/23/25 Order Info: [id number] - CMP Order Info: [id number] - LIPID Performed By: #### L 500.4100, L501.9985, L500.4050, L100.0100 #### [facility] [address] [place], [address] BUN/CRE 18.6 RATIO Normal 10-20 [facility] Comment on above: Order Comment: Order Date: 01/23/25 Order Info: [id number] - CMP Order Info: [id number] - LIPID Performed By: #### L 500.4100, L501.9985, L500.4050, L100.0100 #### [facility] [address] [place], [address] Calcium [Mass/Vol] 9.7 mg/dL Normal 7.6-11.0 [facility] Comment on above: Order Comment: Order Date: 01/23/25 Order Info: [id number] - CMP Order Info: [id number] - LIPID Performed By: #### L 500.4100, L501.9985, L500.4050, L100.0100 #### [facility] [address] [place], [address] Chloride [Moles/Vol] 98 mmol/L Normal 98-108 [facility] Comment on above: Order Comment: Order Date: 01/23/25 Order Info: [id number] - CMP Order Info: [id number] - LIPID Performed By: #### L 500.4100, L501.9985, L500.4050, L100.0100 #### [facility] [address] [place], [address] CO2 [Moles/Vol] 24.1 mmol/L Normal 21.0-32.0 [facility] Comment on above: Order Comment: Order Date: 01/23/25 Order Info: 0786- - CMP Order Info: [id number] - LIPID Performed By: #### L 500.4100, L501.9985, L500.4050, L100.0100 #### [facility] [address] [place], [address] Creatinine [Mass/Vol] 0.72 mg/dL Normal 0.70-1.20 [facility] Comment on above: Order Comment: Order Date: 01/23/25 Order Info: 0786- - CMP Order Info: [id number] - LIPID Performed By: #### L 500.4100, L501.9985, L500.4050, L100.0100 #### [facility] [address] [place], [address] GAP 13 Normal 5-15 [facility] Comment on above: Order Comment: Order Date: 01/23/25 Order Info: 0786- - CMP Order Info: [id number] - LIPID Performed By: #### L 500.4100, L501.9985, L500.4050, L100.0100 #### [facility] [address] [place], [address] GFR/1.73 sq M.predicted among non-blacks MDRD (S/P/Bld) [Vol rate/Area] 98 mL/min/{1.73_m2} Normal >60 [facility] Comment on above: Order Comment: Order Date: 01/23/25 Order Info: [id number] - CMP Order Info: [id number] - LIPID Result Comment: mL/m in/1.73m2 CKD-EPI Creatinine Equation (2020) Performed By: #### L 500.4100, L501.9985, L500.4050, L100.0100 #### [facility] [address] [place], [address] Globulin (S) [Mass/Vol] 2.7 g/dL Normal 2.2-4.2 [facility] Comment on above: Order Comment: Order Date: 01/23/25 Order Info: 0786- - CMP Order Info: [id number] - LIPID Performed By: #### L 500.4100, L501.9985, L500.4050, L100.0100 #### [facility] [address] [place], [address] Glucose [Mass/Vol] 103 mg/dL High 70-99 [facility] Comment on above: Order Comment: Order Date: 01/23/25 Order Info: [id number] - CMP Order Info: [id number] - LIPID Performed By: #### L 500.4100, L501.9985, L500.4050, L100.0100 #### [facility] [address] [place], [address] Potassium [Moles/Vol] 4.0 mmol/L Normal 3.3-5.1 [facility] Comment on above: Order Comment: Order Date: 01/23/25 Order Info: [id number] - CMP Order Info: [id number] - LIPID Performed By: #### L 500.4100, L501.9985, L500.4050, L100.0100 #### [facility] [address] [place], [address] Sodium [Moles/Vol] 135 mmol/L Normal 133-145 [facility] Comment on above: Order Comment: Order Date: 01/23/25 Order Info: [id number] - CMP Order Info: [id number] - LIPID Performed By: #### L 500.4100, L501.9985, L500.4050, L100.0100 #### [facility] [address] [place], [place], [address] T PROT 7.0 g/dL Normal 5.9-8.4 [facility] Comment on above: Order Comment: Order Date: 01/23/25 Order Info: [id number] - CMP Order Info: [id number] - LIPID Performed By: #### L 500.4100, L501.9985, L500.4050, L100.0100 #### [facility] [address] [place], [address] Urea nitrogen [Mass/Vol] 13 mg/dL Normal 4-19 [facility] Comment on above: Order Comment: Order Date: 01/23/25 Order Info: [id number] - CMP Order Info: [id number] - LIPID Performed By: #### L 500.4100, L501.9985, L500.4050, L100.0100 #### [facility] [address] [place], [address] Eosinophil percentageOrdered By: Pito Avitia on 06-07-2025 Eosinophils/100 WBC (Bld) 1.4 % 0-5 [facility] Erythrocyte distribution wid th ratioOrdered By: Pito Avitia on 06-07-2025 Erythrocyte distribution width (RBC) [Ratio] 13.4 % 11.6-14.6 [facility] Erythrocyte distribution wid th standard deviationOrdered By: Pito Avitia on 06-07-2025 Erythrocyte distribution width (RBC) [Ratio] 48.3 fl High 35.1-43.9 [facility] Glomerular filtration rate ( GFR) estimation/1.73 sq m using serum, plasma, or whole bOrdered By: Pito Avitia on 06-07-2025 GFR/1.73 sq M.predicted among non-blacks MDRD (S/P/Bld) [Vol rate/Area] 98 mL/min/{1.73_m2} >60 [facility] Comment on above: mL/min/1.73m2 CKD-EP I Creatinine Equation (2020) Hematocrit Auto (Bld) [Volum e fraction]Ordered By: Pito Avitia on 06-07-2025 Hematocrit (Bld) [Volume fraction] 39.6 % Low 40-54 [facility] Hemoglobin A1con 06-07-2025 HbA1c (Bld) [Mass fraction] 6.0 % High <=5.6 [facility] Comment on above: Order Comment: Order Date: 01/23/25 Order Info: [id number] - A1C Result Comment: Norm al < 5.7 % Prediabetic 5.7 - 6.4 % Diabetic >or= 6.5 % Please note range changes. Performed By: #### L 500.4100, L501.9985, L500.4050, L100.0100 #### [facility] [address] [facility] [place], [address] Hemoglobin A1c percentageOrd ered By: Pito Avitia on 06-07-2025 HbA1c (Bld) [Mass fraction] 6.0 % High <5.7 [facility] Comment on above: Normal < 5.7 % Predi abetic 5.7 - 6.4 % Diabetic >or= 6.5 % Please note range changes. Hemoglobin measurementOrdere d By: Pito Avitia on 06-07-2025 Hemoglobin (Bld) [Mass/Vol] 13.7 g/dL 13.0-16.5 [facility] Immature granulocytes/100 WB C Auto (Bld)Ordered By: Pito Avitia on 06-07-2025 Immature granulocytes/100 WBC (Bld) 0.600 % 0.0-0.9 [facility] Comment on above: IG% - Immature Granu locytes (promyelocytes, myelocytes and metamyelocytes) > 1% indicates that a LEFT SHIFT is Present. Ketones Test strip Ql (U)Ord ered By: Pito Avitia on 06-07-2025 Ketones Ql (U) Negative Negative [facility] LDL calc ser/plasOrdered By: Pito Avitia on 06-07-2025 Cholesterol in LDL [Mass/Vol] 53 mg/dL [facility] Comment on above: Tahqlqtqzy=170-482 m g/dL & Higher Ucen=702 mg/dL or greaterFriedwald Equation for LDL-C Laboratory - Chemistry and C hemistry - challengeOrdered By: Pito Avitia on 06-07-2025 AST [Catalytic activity/Vol] 22 U/L <38 [facility] Lipid Profileon 06-07-2025 CHOL:HDL 3.05 Normal [facility] Comment on above: Order Comment: Order Date: 01/23/25 Order Info: [id number] - CMP Order Info: [id number] - LIPID Performed By: #### L 500.4100, L501.9985, L500.4050, L100.0100 #### [facility] [address] [place], [address] Cholesterol [Mass/Vol] 114 mg/dL Normal <=200 [facility] Comment on above: Order Comment: Order Date: 01/23/25 Order Info: [id number] - CMP Order Info: [id number] - LIPID Result Comment: Chol esterol level, Desirable <200 mg/dL Borderline high cholesterol 200-239 mg/dL High cholesterol >=240 mg/dL Recommendations of the NCEP Adult Treatment Panel for the following risk-cutoff thresholds for the [place] population. Performed By: #### L 500.4100, L501.9985, L500.4050, L100.0100 #### [facility] [address] [place], [address] Cholesterol in HDL [Mass/Vol] 37 mg/dL Low [facility] Comment on above: Order Comment: Order Date: 01/23/25 Order Info: [id number] - CMP Order Info: [id number] - LIPID Result Comment: Martha onal Cholesterol Education Program (NCEP) guidelines: <40 mg/dL: Low HDL-cholesterol (major risk factor for CHD) >= 60 mg/dL: High HDL-cholesterol (negative risk factor for CHD) HDL-cholesterol is affected by a number of factors, e.g. smoking, exercise, hormones, sex and age. Performed By: #### L 500.4100, L501.9985, L500.4050, L100.0100 #### [facility] [address] [place], [address] Cholesterol in LDL [Mass/Vol] 53 mg/dL Normal [facility] Comment on above: Order Comment: Order Date: 01/23/25 Order Info: [id number] - CMP Order Info: [id number] - LIPID Result Comment: Bord nqslsk=298-254 mg/dL Higher Drqv=328 mg/dL or greater Friedwald Equation for LDL-C Performed By: #### L 500.4100, L501.9985, L500.4050, L100.0100 #### [facility] [address] [place], [address] Cholesterol in VLDL [Mass/Vol] 24 mg/dL Normal 5-40 [facility] Comment on above: Order Comment: Order Date: 01/23/25 Order Info: [id number] - CMP Order Info: [id number] - LIPID Performed By: #### L 500.4100, L501.9985, L500.4050, L100.0100 #### [facility] [address] [place], [address] Triglyceride [Mass/Vol] 119 mg/dL Normal [facility] Comment on above: Order Comment: Order Date: 01/23/25 Order Info: [id number] - CMP Order Info: [id number] - LIPID Result Comment: The drugs N-Acetylcysteine and Metamizole may falsely depress this assay. Normal range: <150 mg/dL Borderline High: 150-199 mg/dL High: 200-499 mg/dL Very High: >500 mg/dL Performed By: #### L 500.4100, L501.9985, L500.4050, L100.0100 #### [facility] [address] [place], [address] MCV (mean corpuscular volume ) determinationOrdered By: Pito Avitia on 06-07-2025 MCV (RBC) [Entitic vol] 99.0 fL High 80-94 [facility] Mean corpuscular hemoglobin (MCH) determinationOrdered By: Pito Avitia on 06-07-2025 MCH (RBC) [Entitic mass] 34.3 pg High 27.0-32.0 [facility] Mean corpuscular hemoglobin concentration (MCHC) determinationOrdered By: Piot Avitia on 06-07-2025 MCHC (RBC) [Mass/Vol] 34.6 g/dL 32-36 [facility] Mean platelet volume determi nationOrdered By: Pito Avitia on 06-07-2025 Platelet mean volume (Bld) [Entitic vol] 10.0 fL 6.2-12.0 [facility] Microscopic analysis of urin e for red blood cells (RBC)Ordered By: Pito Avitia on 06-07-2025 Microscopic analysis of urine for red blood cells (RBC) 0-5 SEEN /hpf 0-5 [facility] Monocyte percentageOrdered B y: Pito Avitia on 06-07-2025 Monocytes/100 WBC (Bld) 7.3 % 0-10 [facility] Mucus LM Ql (Urine sed)Order ed By: Pito Avitia on 06-07-2025 Mucus Ql (Urine sed) 0 SEEN /hpf [facility] Neutrophil percentageOrdered By: Pito Avitia on 06-07-2025 Neutrophils/100 WBC (Bld) 56.0 % 47-70 [facility] Nitrite Test strip Ql (U)Ord ered By: Pito Avitia on 06-07-2025 Nitrite Ql (U) Negative Negative [facility] Nucleated red blood cell per centageOrdered By: Pito Avitia on 06-07-2025 Nucleated RBC/100 WBC (Bld) [Ratio] 0 % 0-5 [facility] Platelet countOrdered By: Shauna Avitia on 06-07-2025 Platelets (Bld) [#/Vol] 220 10*3/uL 150-450 [facility] Potassium measurement (mass/ volume)Ordered By: Pito Avitia on 06-07-2025 Potassium (Unsp spec) [Mass/Vol] 4.0 mmol/L 3.3-5.1 [facility] Protein Test strip Ql (U)Ord ered By: Pito Avitia on 06-07-2025 Protein Ql (U) Negative Negative [facility] RBC Auto (Bld) [#/Vol]Ordere d By: Pito Avitia on 06-07-2025 RBC (Bld) [#/Vol] 4.00 10*6/uL Low 4.6-6.2 [facility] Screening total cholesterol/ high density lipoprotein (HDL) cholesterol ratioOrdered By: Pito Avitia on 06-07-2025 Cholesterol.total/Choles terol in HDL [Mass ratio] 3.05 {ratio} [facility] Serum creatinine measurement (mass/volume)Ordered By: Pito Avitia on 06-07-2025 Creatinine [Mass/Vol] 0.72 mg/dL 0.70-1.20 [facility] Serum globulin measurementOr dered By: Pito Avitia on 06-07-2025 Globulin (S) [Mass/Vol] 2.7 g/dL 2.2-4.2 [facility] Serum glucose measurement (m ass/volume)Ordered By: Pito Avitia on 06-07-2025 Glucose [Mass/Vol] 103 mg/dL High 70-99 [facility] Serum or plasma alanine romero otransferase (ALT) measurementOrdered By: Pito Avitia on 06-07-2025 ALT [Catalytic activity/Vol] 28 U/L <47 [facility] Serum or plasma albumin kamaljit urement (mass/volume)Ordered By: Pito Avitia on 06-07-2025 Albumin [Mass/Vol] 4.3 g/dL 3.4-4.8 [facility] Serum or plasma albumin/glob ulin mass ratioOrdered By: Pito Avitia on 06-07-2025 Albumin/Globulin [Mass ratio] 1.6 {ratio} 0.9-2.4 [facility] Serum or plasma alkaline esmer sphatase measurementOrdered By: Pito Avitia on 06-07-2025 ALP [Catalytic activity/Vol] 50 U/L 40-129 [facility] Serum or plasma calcium kamaljit urement (mass/volume)Ordered By: Pito Avitia on 06-07-2025 Calcium [Mass/Vol] 9.7 mg/dL 7.6-11.0 [facility] Serum or plasma cholesterol in HDL measurement (mass/volume)Ordered By: Pito Avitia on 06-07-2025 Cholesterol in HDL [Mass/Vol] 37 mg/dL Low >40 [facility] Comment on above: National Cholesterol Education Program (NCEP) guidelines:<40 mg/dL: Low HDL-cholesterol (major risk factor for CHD)>= 60 mg/dL: High HDL-cholesterol (negative risk factor for CHD)HDL-cholesterol is affected by a number of factors, e.g. smoking, exercise, hormones, sex and age. Serum or plasma cholesterol measurement (mass/volume)Ordered By: Pito Avitia on 06-07-2025 Cholesterol [Mass/Vol] 114 mg/dL <201 [facility] Comment on above: Cholesterol level, D esirable <200 mg/dLBorderline high cholesterol 200-239 mg/dLHigh cholesterol >=240 mg/dLRecommendations of the NCEP Adult Treatment Panel for the following risk-cutoff thresholds for the [place] population. Serum or plasma urea nitroge n measurement (mass/volume)Ordered By: Pito Avitia on 06-07-2025 Urea nitrogen [Mass/Vol] 13 mg/dL 4-19 [facility] Sodium levelOrdered By: Pito Avitia on 06-07-2025 Sodium [Moles/Vol] 135 mmol/L 133-145 [facility] Squamous epithelial cells de tection in urine sediment by light microscopyOrdered By: Pito Avitia on 06-07-2025 Epithelial cells.squamous LM Ql (Urine sed) 0 SEEN /hpf 0-5 [facility] Total proteinOrdered By: Torey Avitia on 06-07-2025 Protein [Mass/Vol] 7.0 g/dL 5.9-8.4 [facility] Triglycerides measurementOrd ered By: Pito Avitia on 06-07-2025 Triglyceride [Mass/Vol] 119 mg/dL <199 [facility] Comment on above: The drugs N-Acetylcy steine and Metamizole may falsely depress this assay. Normal range: <150 mg/dLBorderline High: 150-199 mg/dLHigh: 200-499 mg/dLVery High: >500 mg/dL Urinalysis, Completeon 06-07 RBC 0-5 SEEN Normal 0-5 [facility] Comment on above: Order Comment: CLEAN CATCH Performed By: #### L 500.4100, L500.4050, L506.1000, L501.9985, L100.0100 #### [facility] [address] [place], [address] BACTERIA 0 SEEN Normal None Seen [facility] Comment on above: Order Comment: CLEAN CATCH Performed By: #### L 500.4100, L500.4050, L506.1000, L501.9985, L100.0100 #### [facility] [address] [place], [address] EPI,SQUAMOUS 0 SEEN Normal 0-5 [facility] Comment on above: Order Comment: CLEAN CATCH Performed By: #### L 500.4100, L500.4050, L506.1000, L501.9985, L100.0100 #### [facility] [address] [place], [address] Mucus Ql (Urine sed) 0 SEEN Normal [facility] Comment on above: Order Comment: CLEAN CATCH Performed By: #### L 500.4100, L500.4050, L506.1000, L501.9985, L100.0100 #### [facility] [address] [place], [address] WBC 0 SEEN Normal 0-5 [facility] Comment on above: Order Comment: CLEAN CATCH Performed By: #### L 500.4100, L500.4050, L506.1000, L501.9985, L100.0100 #### [facility] [address] [place], [address] Urine clarityOrdered By: Torey Avitia on 06-07-2025 Clarity (U) Clear Clear [facility] Urine color determinationOrd ered By: Pito Avitia on 06-07-2025 Color (U) Yellow Yellow [facility] Urine glucose detectionOrder ed By: Pito Avitia on 06-07-2025 Glucose Ql (U) Normal mg/dl Normal [facility] Urine leukocyte esterase det ection by dipstickOrdered By: Pito Avitia on 06-07-2025 Leukocyte esterase Test strip Ql (U) Negative Negative [facility] Urine pHOrdered By: Pito lloyd on 06-07-2025 pH (U) 7.0 [pH] 5.0 - 8.0 [facility] Urine sediment bacteria coun t by microscopy (number/high power field)Ordered By: Pito Avitia on 06-07-2025 Bacteria LM.HPF (Urine sed) [#/Area] 0 /[HPF] None Seen [facility] Urine specific gravity measu rementOrdered By: Pito Avitia on 06-07-2025 Specific gravity (U) [Rel density] 1.010 1.002-1.030 [facility] Urine urobilinogen measureme ntOrdered By: Pito Avitia on 06-07-2025 Urobilinogen Ql (U) Normal mg/dl Normal [facility] White blood cell (WBC) count Ordered By: Pito Avitia on 06-07-2025 WBC (Bld) [#/Vol] 8.4 10*3/uL 4.4-11.0 [facility] White blood cell countOrdere d By: Pito Avitia on 06-07-2025 White blood cell count 0 SEEN /hpf 0-5 [facility] Low Dose CT Lung Screeningon 02-12-[address] Lung Screening [facility] [address] [place] [address] Lung Screening MR#: [id number] Acct: [id number] Name: FOSTER WORTHINGTON Rep #: [id number] : 1955 M 69 From: Jean Pierre seymour MD PCP: Dr. Pito Avitia MD Status: REG CLI Study: Low Dose CT Lung Screening Date of Exam: 02/12 Exam# [id number] Ordering Dr: Pito Avitia MD PROCEDURE: LOW [...] use of iterative reconstruction technique). REFERENCE LINK: WISErg Lung-RADS RADIATION DOSE SUMMARY: CTDlvol: 2.39 mGy DLP: 82.5 mGycm COMPARISON: None. FINDINGS: PULMONARY NODULES: (Only nodules >3mm are reported) Nodules described below are on series 1 unless otherwise specified. Pulmonary Nodules: No suspicious pulmonary nodules. Hardware:None Lymph Nodes:No significant mediastinal or hilar lymph nodes. Heart and Vasculature:Coronary artery calcifications are noted.Atheroscleroti c calcifications of the thoracic aorta. Thoracic aorta and pulmonary arteries have normal contours; noncontrast technique limits evaluation. Coronary Artery Calcifications: Present Lungs and Airways: Mild emphysematous changes are present. Scarring at the lung apices. Pleura:Unremarkable Upper Abdomen:Unremarkable Bones:Prior vertebroplasty of a mid dorsal vertebrae with loss of height. CT/Low Dose CT Lung Screening IMPRESSION: No suspicious pulmonary nodules seen. Coronary artery calcification (CAC) is is present Lung-RADS Category: 2 BENIGN (BASED ON IMAGING FEATURES OR INDOLENT BEHAVIOR). RECOMMEND 12-MONTH SCREENING LDCT. Other Significant Findings: None. Reading Location: [place] [address] CC: Dr. Pito Avitia MD [employer] Supervisor: Signed Normal [facility] Absolute neutrophil countOrd ered By: Pito Avitia on 01-23-2025 Neutrophils (Bld) [#/Vol] 4.3 10*3/uL 2.0-7.7 [facility] Albumin DL <= 20 mg/L (U) [M ass/Vol]Ordered By: Piot Avitia on 01-23-2025 Urine Random Microalbumin < 12.0 mg/L NO RANGE EST. [facility] Anion gap in Serum or Plasma Ordered By: Pito Avitia on 01-23-2025 Anion gap [Moles/Vol] 12 mmol/L 5-15 [facility] BUN/creatinine ratioOrdered By: Pito Avitia on 01-23-2025 Urea nitrogen/Creatinine [Mass ratio] 19.7 mg/mg 10-20 [facility] Basophil percentageOrdered B y: Pito Avitia on 01-23-2025 Basophils/100 WBC (Bld) 0.8 % 0-1 [facility] Bilirubin, totalOrdered By: Pito Avitia on 01-23-2025 Bilirubin [Mass/Vol] 0.45 mg/dL 0.00-1.30 [facility] CBC W/Diff, Automatedon Absolute Lymph 2.63 X10 3/uL Normal 0.83-4.51 [facility] Comment on above: Order Comment: Order Date: 01/23/25Order Info: [id number] - CBCD Performed By: #### L 500.4100, L500.4050, L506.1000, L501.9985, L100.0100 #### [facility] [address] [place], [address] Absolute Neut 4.3 X10 3/uL Normal 2.0-7.7 [facility] Comment on above: Order Comment: Order Date: 01/23/25Order Info: [id number] - CBCD Performed By: #### L 500.4100, L500.4050, L506.1000, L501.9985, L100.0100 #### [facility] [address] [place], [address] Basophils/100 WBC (Bld) 0.8 % Normal 0-1 [facility] Comment on above: Order Comment: Order Date: 01/23/25Order Info: [id number] - CBCD Performed By: #### L 500.4100, L500.4050, L506.1000, L501.9985, L100.0100 #### [facility] [address] [place], [address] Eosinophils/100 WBC (Bld) 1.7 % Normal 0-5 [facility] Comment on above: Order Comment: Order Date: 01/23/25Order Info: [id number] - CBCD Performed By: #### L 500.4100, L500.4050, L506.1000, L501.9985, L100.0100 #### [facility] [address] [place], [address] Erythrocyte distribution width (RBC) [Ratio] 13.2 % Normal 11.6-14.6 [facility] Comment on above: Order Comment: Order Date: 01/23/25Order Info: 0184-1 - CBCD Performed By: #### L 500.4100, L500.4050, L506.1000, L501.9985, L100.0100 #### [facility] [address] [place], [address] Hematocrit (Bld) [Volume fraction] 40.1 % Normal 40-54 [facility] Comment on above: Order Comment: Order Date: 01/23/25Order Info: 0184-1 - CBCD Performed By: #### L 500.4100, L500.4050, L506.1000, L501.9985, L100.0100 #### [facility] [address] [place], [address] Hemoglobin (Bld) [Mass/Vol] 13.9 g/dL Normal 13.0-16.5 [facility] Comment on above: Order Comment: Order Date: 01/23/25Order Info: 0184-1 - CBCD Performed By: #### L 500.4100, L500.4050, L506.1000, L501.9985, L100.0100 #### [facility] [address] [place], [address] IG% 0.500 Normal 0.0-0.9 [facility] Comment on above: Order Comment: Order Date: 01/23/25Order Info: 0184-1 - CBCD Result Comment: IG% - Immature Granulocytes (promyelocytes, myelocytes and metamyelocytes) > 1% indicates that a LEFT SHIFT is Present. Performed By: #### L 500.4100, L500.4050, L506.1000, L501.9985, L100.0100 #### [facility] [address] [place], [address] Lymphocytes/100 WBC (Bld) 33.9 % Normal 19-41 [facility] Comment on above: Order Comment: Order Date: 01/23/25Order Info: 0184-1 - CBCD Performed By: #### L 500.4100, L500.4050, L506.1000, L501.9985, L100.0100 #### [facility] [address] [place], [address] MCH (RBC) [Entitic mass] 34.0 pg High 27.0-32.0 [facility] Comment on above: Order Comment: Order Date: 01/23/25Order Info: 0184-1 - CBCD Performed By: #### L 500.4100, L500.4050, L506.1000, L501.9985, L100.0100 #### [facility] [address] [place], [address] MCHC (RBC) [Mass/Vol] 34.7 g/dL Normal 32-36 [facility] Comment on above: Order Comment: Order Date: 01/23/25Order Info: 0184-1 - CBCD Performed By: #### L 500.4100, L500.4050, L506.1000, L501.9985, L100.0100 #### [facility] [address] [place], [address] MCV (RBC) [Entitic vol] 98.0 fL High 80-94 [facility] Comment on above: Order Comment: Order Date: 01/23/25Order Info: 0184-1 - CBCD Performed By: #### L 500.4100, L500.4050, L506.1000, L501.9985, L100.0100 #### [facility] [address] [place], [address] Monocytes/100 WBC (Bld) 8.0 % Normal 0-10 [facility] Comment on above: Order Comment: Order Date: 01/23/25Order Info: 0184-1 - CBCD Performed By: #### L 500.4100, L500.4050, L506.1000, L501.9985, L100.0100 #### [facility] [address] [place], [address] Neutrophils/100 WBC (Bld) 55.1 % Normal 47-70 [facility] Comment on above: Order Comment: Order Date: 01/23/25Order Info: 0184-1 - CBCD Performed By: #### L 500.4100, L500.4050, L506.1000, L501.9985, L100.0100 #### [facility] [address] [place], [address] Nucleated RBC (Bld) [#/Vol] 0 10*3/uL Normal 0-5 [facility] Comment on above: Order Comment: Order Date: 01/23/25Order Info: 0184-1 - CBCD Performed By: #### L 500.4100, L500.4050, L506.1000, L501.9985, L100.0100 #### [facility] [address] [place], [address] Platelet mean volume (Bld) [Entitic vol] 9.6 fL Normal 6.2-12.0 [facility] Comment on above: Order Comment: Order Date: 01/23/25Order Info: 0184-1 - CBCD Performed By: #### L 500.4100, L500.4050, L506.1000, L501.9985, L100.0100 #### [facility] [address] [place], [address] Platelets (Bld) [#/Vol] 237 10*3/uL Normal 150-450 [facility] Comment on above: Order Comment: Order Date: 01/23/25Order Info: 0184-1 - CBCD Performed By: #### L 500.4100, L500.4050, L506.1000, L501.9985, L100.0100 #### [facility] [address] [place], [address] RBC (Bld) [#/Vol] 4.09 10*6/uL Low 4.6-6.2 [facility] Comment on above: Order Comment: Order Date: 01/23/25Order Info: 0184-1 - CBCD Performed By: #### L 500.4100, L500.4050, L506.1000, L501.9985, L100.0100 #### [facility] [address] [place], [address] RDW SD 47.2 fl High 35.1-43.9 [facility] Comment on above: Order Comment: Order Date: 01/23/25Order Info: 0184-1 - CBCD Performed By: #### L 500.4100, L500.4050, L506.1000, L501.9985, L100.0100 #### [facility] [address] [place], [address] WBC (Bld) [#/Vol] 7.8 10*3/uL Normal 4.4-11.0 [facility] Comment on above: Order Comment: Order Date: 01/23/25Order Info: 0184-1 - CBCD Performed By: #### L 500.4100, L500.4050, L506.1000, L501.9985, L100.0100 #### [facility] [address] [place], [address] Calculated very low density lipoprotein (VLDL) cholesterol measurementOrdered By: Pito Avitia on 01-23-2025 VLDL Cholesterol 29 mg/dL 5-40 [facility] Carbon dioxide, total [Moles /volume] in Central venous bloodOrdered By: Pito Avitia on 01-23-2025 CO2 [Moles/Vol] 24.8 mmol/L 21.0-32.0 [facility] Chloride assayOrdered By: Shauna Avitia on 01-23-2025 Chloride [Moles/Vol] 95 mmol/L Low 98-108 [facility] Comprehensive Metabolic Prof ilon 01-23-2025 Albumin [Mass/Vol] 4.4 g/dL Normal 3.4-4.8 [facility] Comment on above: Order Comment: Order Date: 01/23/25Order Info: [id number] - CMPOrder Info: [id number] - LIPID Performed By: #### L 500.4100, L500.4050, L506.1000, L501.9985, L100.0100 #### [facility] [address] [place], [address] Albumin/Globulin [Mass ratio] 1.5 {ratio} Normal 0.9-2.4 [facility] Comment on above: Order Comment: Order Date: 01/23/25Order Info: [id number] - CMPOrder Info: [id number] - LIPID Performed By: #### L 500.4100, L500.4050, L506.1000, L501.9985, L100.0100 #### [facility] [address] [place], [address] ALK PHOS 52 U/L Normal 40-129 [facility] Comment on above: Order Comment: Order Date: 01/23/25Order Info: [id number] - CMPOrder Info: [id number] - LIPID Performed By: #### L 500.4100, L500.4050, L506.1000, L501.9985, L100.0100 #### [facility] [address] [place], [address] ALT [Catalytic activity/Vol] 28 U/L Normal <=46 [facility] Comment on above: Order Comment: Order Date: 01/23/25Order Info: [id number] - CMPOrder Info: [id number] - LIPID Performed By: #### L 500.4100, L500.4050, L506.1000, L501.9985, L100.0100 #### [facility] [address] [place], [address] AST [Catalytic activity/Vol] 26 U/L Normal <=37 [facility] Comment on above: Order Comment: Order Date: 01/23/25Order Info: [id number] - CMPOrder Info: [id number] - LIPID Performed By: #### L 500.4100, L500.4050, L506.1000, L501.9985, L100.0100 #### [facility] [address] [place], [address] Bilirubin [Mass/Vol] 0.45 mg/dL Normal 0.00-1.30 [facility] Comment on above: Order Comment: Order Date: 01/23/25Order Info: [id number] - CMPOrder Info: [id number] - LIPID Performed By: #### L 500.4100, L500.4050, L506.1000, L501.9985, L100.0100 #### [facility] [address] [place], [address] BUN/CRE 19.7 RATIO Normal 10-20 [facility] Comment on above: Order Comment: Order Date: 01/23/25Order Info: [id number] - CMPOrder Info: [id number] - LIPID Performed By: #### L 500.4100, L500.4050, L506.1000, L501.9985, L100.0100 #### [facility] [address] [place], [address] Calcium [Mass/Vol] 10.2 mg/dL Normal 7.6-11.0 [facility] Comment on above: Order Comment: Order Date: 01/23/25Order Info: [id number] - CMPOrder Info: [id number] - LIPID Performed By: #### L 500.4100, L500.4050, L506.1000, L501.9985, L100.0100 #### [facility] [address] [place], [address] Chloride [Moles/Vol] 95 mmol/L Low 98-108 [facility] Comment on above: Order Comment: Order Date: 01/23/25Order Info: [id number] - CMPOrder Info: [id number] - LIPID Performed By: #### L 500.4100, L500.4050, L506.1000, L501.9985, L100.0100 #### [facility] [address] [place], [address] CO2 [Moles/Vol] 24.8 mmol/L Normal 21.0-32.0 [facility] [facility] Comment on above: Order Comment: Order Date: 01/23/25Order Info: [id number] CMPOrder Info: [id number] - LIPID Performed By: #### L 500.4100, L500.4050, L506.1000, L501.9985, L100.0100 #### [facility] [address] [place], [address] Creatinine [Mass/Vol] 0.74 mg/dL Normal 0.70-1.20 [facility] Comment on above: Order Comment: Order Date: 01/23/25Order Info: [id number] - CMPOrder Info: [id number] - LIPID Performed By: #### L 500.4100, L500.4050, L506.1000, L501.9985, L100.0100 #### [facility] [address] [place], [address] GAP 12 Normal 5-15 [facility] Comment on above: Order Comment: Order Date: 01/23/25Order Info: [id number] - CMPOrder Info: [id number] - LIPID Performed By: #### L 500.4100, L500.4050, L506.1000, L501.9985, L100.0100 #### [facility] [address] [place], [address] GFR/1.73 sq M.predicted among non-blacks MDRD (S/P/Bld) [Vol rate/Area] 98 mL/min/{1.73_m2} Normal >60 [facility] Comment on above: Order Comment: Order Date: 01/23/25Order Info: [id number] - CMPOrder Info: [id number] - LIPID Result Comment: mL/m in/1.73m2 CKD-EPI Creatinine Equation (2020) Performed By: #### L 500.4100, L500.4050, L506.1000, L501.9985, L100.0100 #### [facility] [address] [place], [address] Globulin (S) [Mass/Vol] 3.0 g/dL Normal 2.2-4.2 [facility] Comment on above: Order Comment: Order Date: 01/23/25Order Info: [id number] - CMPOrder Info: [id number] - LIPID Performed By: #### L 500.4100, L500.4050, L506.1000, L501.9985, L100.0100 #### [facility] [address] [place], [address] Glucose [Mass/Vol] 99 mg/dL Normal 70-99 [facility] Comment on above: Order Comment: Order Date: 01/23/25Order Info: [id number] - CMPOrder Info: [id number] - LIPID Performed By: #### L 500.4100, L500.4050, L506.1000, L501.9985, L100.0100 #### [facility] [address] [place], [address] Potassium [Moles/Vol] 4.3 mmol/L Normal 3.3-5.1 [facility] Comment on above: Order Comment: Order Date: 01/23/25Order Info: [id number] - CMPOrder Info: [id number] - LIPID Performed By: #### L 500.4100, L500.4050, L506.1000, L501.9985, L100.0100 #### [facility] [address] [place], [address] Sodium [Moles/Vol] 132 mmol/L Low 133-145 [facility] Comment on above: Order Comment: Order Date: 01/23/25Order Info: [id number] - CMPOrder Info: [id number] - LIPID Performed By: #### L 500.4100, L500.4050, L506.1000, L501.9985, L100.0100 #### [facility] [address] [place], [address] T PROT 7.4 g/dL Normal 5.9-8.4 [facility] Comment on above: Order Comment: Order Date: 01/23/25Order Info: [id number] - CMPOrder Info: [id number] - LIPID Performed By: #### L 500.4100, L500.4050, L506.1000, L501.9985, L100.0100 #### [facility] [address] [place], [address] Urea nitrogen [Mass/Vol] 15 mg/dL Normal 4-19 [facility] Comment on above: Order Comment: Order Date: 01/23/25Order Info: [id number] - CMPOrder Info: [id number] - LIPID Performed By: #### L 500.4100, L500.4050, L506.1000, L501.9985, L100.0100 #### [facility] [address] [place], [address] Creatinine Unsp time (U) [Ma ss/Vol]Ordered By: Pito Avitia on 01-23-2025 Creatinine (U) [Mass/Vol] 75.10 mg/dL 39.00-259.00 [facility] Eosinophil percentageOrdered By: Pito Avitia on 01-23-2025 Eosinophils/100 WBC (Bld) 1.7 % 0-5 [facility] Erythrocyte distribution wid th (RBC) [Ratio]Ordered By: Pito Avitia on 01-23-2025 Erythrocyte distribution width (RBC) [Entitic vol] 47.2 fL High 35.1-43.9 [facility] Erythrocyte distribution wid th ratioOrdered By: Pito Avitia on 01-23-2025 Erythrocyte distribution width (RBC) [Ratio] 13.2 % 11.6-14.6 [facility] GFR/1.73 sq M.predicted nichole g non-blacks MDRD (S/P/Bld) [Vol rate/Area]Ordered By: Pito Avitia on 01-23-2025 Estimated GFR (MDRD) Non-Af Amer 98 >60 [facility] Comment on above: mL/min/1.73m2 CKD-EP I Creatinine Equation (2020) Hematocrit Auto (Bld) [Volum e fraction]Ordered By: Pito Avitia on 01-23-2025 Hematocrit (Bld) [Volume fraction] 40.1 % 40-54 [facility] Hemoglobin A1con 01-23-2025 HbA1c (Bld) [Mass fraction] 6.2 % Normal <=5.6 [facility] Comment on above: Order Comment: Order Date: 01/23/25Order Info: [id number] - A1C Performed By: #### L 500.4100, L500.4050, L506.1000, L501.9985, L100.0100 #### [facility] [address] [place] [address]. [place], [address] Hemoglobin A1c percentageOrd ered By: Pito Avitia on 01-23-2025 HbA1c (Bld) [Mass fraction] 6.2 % >5.7 [facility] Hemoglobin measurementOrdere d By: Pito Avitia on 01-23-2025 Hemoglobin (Bld) [Mass/Vol] 13.9 g/dL 13.0-16.5 [facility] Immature granulocytes/100 WB C Auto (Bld)Ordered By: Pito Avitia on 01-23-2025 Immature granulocytes/100 WBC (Bld) 0.500 % 0.0-0.9 [facility] Comment on above: IG% - Immature Granu locytes (promyelocytes, myelocytes and metamyelocytes) > 1% indicates that a LEFT SHIFT is Present. LDL calc ser/plasOrdered By: Pito Avitia on 01-23-2025 LDL Cholesterol, Calculated 48 mg/dL [facility] Comment on above: Mtehuoopnw=511-414 m g/dL & Higher Epaz=175 mg/dL or greater Laboratory - Chemistry and C hemistry - challengeOrdered By: Pito Avitia on 01-23-2025 AST [Catalytic activity/Vol] 26 U/L <38 [facility] Lipid Profileon 01-23-2025 CHOL:HDL 2.93 Normal [facility] Comment on above: Order Comment: Order Date: 01/23/25Order Info: [id number] - CMPOrder Info: [id number] - LIPID Performed By: #### L 500.4100, L500.4050, L506.1000, L501.9985, L100.0100 #### [facility] [address] [place], [address] Cholesterol [Mass/Vol] 117 mg/dL Normal <=200 [facility] Comment on above: Order Comment: Order Date: 01/23/25Order Info: [id number] - CMPOrder Info: [id number] - LIPID Result Comment: Chol esterol level, Desirable <200 mg/dL Borderline high cholesterol 200-239 mg/dL High cholesterol >=240 mg/dL Recommendations of the NCEP Adult Treatment Panel for the following risk-cutoff thresholds for the [place] population. Performed By: #### L 500.4100, L500.4050, L506.1000, L501.9985, L100.0100 #### [facility] [address] [place], [address] Cholesterol in HDL [Mass/Vol] 40 mg/dL Normal [facility] Comment on above: Order Comment: Order Date: 01/23/25Order Info: [id number] - CMPOrder Info: [id number] - LIPID Result Comment: Martha onal Cholesterol Education Program (NCEP) guidelines: <40 mg/dL: Low HDL-cholesterol (major risk factor for CHD) >= 60 mg/dL: High HDL-cholesterol (negative risk factor for CHD) HDL-cholesterol is affected by a number of factors, e.g. smoking, exercise, hormones, sex and age. Performed By: #### L 500.4100, L500.4050, L506.1000, L501.9985, L100.0100 #### [facility] [address] [place], [address] Cholesterol in LDL [Mass/Vol] 48 mg/dL Normal [facility] Comment on above: Order Comment: Order Date: 01/23/25Order Info: [id number] - CMPOrder Info: [id number] - LIPID Result Comment: Bord rmmzum=700-452 mg/dL Higher Eaye=592 mg/dL or greater Performed By: #### L 500.4100, L500.4050, L506.1000, L501.9985, L100.0100 #### [facility] [address] [place], [address] Cholesterol in VLDL [Mass/Vol] 29 mg/dL Normal 5-40 [facility] Comment on above: Order Comment: Order Date: 01/23/25Order Info: [id number] - CMPOrder Info: [id number] - LIPID Performed By: #### L 500.4100, L500.4050, L506.1000, L501.9985, L100.0100 #### [facility] [address] [place], [address] Triglyceride [Mass/Vol] 146 mg/dL Normal [facility] Comment on above: Order Comment: Order Date: 01/23/25Order Info: [id number] - CMPOrder Info: [id number] - LIPID Result Comment: The drugs N-Acetylcysteine and Metamizole may falsely depress this assay. Normal range: <150 mg/dL Borderline High: 150-199 mg/dL High: 200-499 mg/dL Very High: >500 mg/dL Performed By: #### L 500.4100, L500.4050, L506.1000, L501.9985, L100.0100 #### [facility] [address] [place], [address] Lymphocytes Auto (Unsp spec) [#/Vol]Ordered By: Pito Avitia on 01-23-2025 Lymphocytes (Bld) [#/Vol] 2.63 10*3/uL 0.83-4.51 [facility] Lymphocytes/100 WBC Auto (Un sp spec)Ordered By: Pito Avitia on 01-23-2025 Lymphocytes/100 WBC (Bld) 33.9 % 19-41 [facility] MCV (mean corpuscular volume ) determinationOrdered By: Pito Avitia on 01-23-2025 MCV (RBC) [Entitic vol] 98.0 fL High 80-94 [facility] Mean corpuscular hemoglobin (MCH) determinationOrdered By: Pito Avitia on 01-23-2025 MCH (RBC) [Entitic mass] 34.0 pg High 27.0-32.0 [facility] Mean corpuscular hemoglobin concentration (MCHC) determinationOrdered By: Pito Avitia on 01-23-2025 MCHC (RBC) [Mass/Vol] 34.7 g/dL 32-36 [facility] Mean platelet volume determi nationOrdered By: Pito Avitia on 01-23-2025 Platelet mean volume (Bld) [Entitic vol] 9.6 fL 6.2-12.0 [facility] Microalb:Creat Ratio,Random URon 01-23-2025 Creatinine [Mass/Vol] 75.10 mg/dL Normal 39.00-259.00 [facility] Comment on above: Order Comment: Order Date: 01/23/25 Order Info: [id number] - MIALB Performed By: #### L 502.0250 #### [facility] [address] [place], [place], [address] MALB:CREAT UNABLE TO CALCULATE Normal [facility] Comment on above: Order Comment: Order Date: 01/23/25 Order Info: [id number] - MIALB Performed By: #### L 502.0250 #### [facility] [address] [place], [place], [address] MICROALBUMIN,UR < 12.0 Normal NO RANGE EST. [facility] Comment on above: Order Comment: Order Date: 01/23/25 Order Info: [id number] - MIALB Performed By: #### L 502.0250 #### [facility] [address] [place], [place], [address] Microalbumin/creat ratio urO rdered By: Pito Avitia on 01-23-2025 Urine Microalbumin/Creatinine Ratio UNABLE TO CALCULATE mg/g CRE [facility] Monocyte percentageOrdered B y: Pito Avitia on 01-23-2025 Monocytes/100 WBC (Bld) 8.0 % 0-10 [facility] Neutrophil percentageOrdered By: Pito Avitia on 01-23-2025 Neutrophils/100 WBC (Bld) 55.1 % 47-70 [facility] Nucleated red blood cell per centageOrdered By: Pito Avitia on 01-23-2025 Nucleated RBC/100 WBC (Bld) [Ratio] 0 % 0-5 [facility] Platelet countOrdered By: Shauna Avitia on 01-23-2025 Platelets (Bld) [#/Vol] 237 10*3/uL 150-450 [facility] Potassium (Unsp spec) [Mass/ Vol]Ordered By: Pito Avitia on 01-23-2025 Potassium [Moles/Vol] 4.3 mmol/L 3.3-5.1 [facility] RBC Auto (Bld) [#/Vol]Ordere d By: Pito Avitia on 01-23-2025 RBC (Bld) [#/Vol] 4.09 10*6/uL Low 4.6-6.2 [facility] Screening total cholesterol/ high density lipoprotein (HDL) cholesterol ratioOrdered By: Pito Avitia on 01-23-2025 Cholesterol.total/Choles terol in HDL [Mass ratio] 2.93 {ratio} [facility] Serum creatinine measurement (mass/volume)Ordered By: Pito Avitia on 01-23-2025 Creatinine [Mass/Vol] 0.74 mg/dL 0.70-1.20 [facility] Serum globulin measurementOr dered By: Pito Avitia on 01-23-2025 Globulin (S) [Mass/Vol] 3.0 g/dL 2.2-4.2 [facility] Serum glucose measurement (m ass/volume)Ordered By: Pito Avitia on 01-23-2025 Glucose [Mass/Vol] 99 mg/dL 70-99 [facility] Serum or plasma alanine romero otransferase (ALT) measurementOrdered By: Pito Avitia on 01-23-2025 ALT [Catalytic activity/Vol] 28 U/L <47 [facility] Serum or plasma albumin kamaljit urement (mass/volume)Ordered By: Pito Avitia on 01-23-2025 Albumin [Mass/Vol] 4.4 g/dL 3.4-4.8 [facility] Serum or plasma albumin/glob ulin mass ratioOrdered By: Pito Avitia on 01-23-2025 Albumin/Globulin [Mass ratio] 1.5 {ratio} 0.9-2.4 [facility] Serum or plasma alkaline esmer sphatase measurementOrdered By: Pito Avitia on 01-23-2025 ALP [Catalytic activity/Vol] 52 U/L 40-129 [facility] Serum or plasma calcium kamaljit urement (mass/volume)Ordered By: Pito Avitia on 01-23-2025 Calcium [Mass/Vol] 10.2 mg/dL 7.6-11.0 [facility] Serum or plasma cholesterol in HDL measurement (mass/volume)Ordered By: Pito Avitia on 01-23-2025 Cholesterol in HDL [Mass/Vol] 40 mg/dL >40 [facility] Comment on above: National Cholesterol Education Program (NCEP) guidelines:<40 mg/dL: Low HDL-cholesterol (major risk factor for CHD)>= 60 mg/dL: High HDL-cholesterol (negative risk factor for CHD)HDL-cholesterol is affected by a number of factors, e.g. smoking, exercise, hormones, sex and age. Serum or plasma cholesterol measurement (mass/volume)Ordered By: Pito Avitia on 01-23-2025 Cholesterol [Mass/Vol] 117 mg/dL <201 [facility] Comment on above: Cholesterol level, D esirable <200 mg/dLBorderline high cholesterol 200-239 mg/dLHigh cholesterol >=240 mg/dLRecommendations of the NCEP Adult Treatment Panel for the following risk-cutoff thresholds for the [place] population. Serum or plasma urea nitroge n measurement (mass/volume)Ordered By: Pito Avitia on 01-23-2025 Urea nitrogen [Mass/Vol] 15 mg/dL 4-19 [facility] Sodium levelOrdered By: Pito Avitia on 01-23-2025 Sodium [Moles/Vol] 132 mmol/L Low 133-145 [facility] Total proteinOrdered By: Torey Avitia on 01-23-2025 Protein [Mass/Vol] 7.4 g/dL 5.9-8.4 [facility] Triglycerides measurementOrd ered By: Pito Avitia on 01-23-2025 Triglyceride [Mass/Vol] 146 mg/dL <199 [facility] Comment on above: The drugs N-Acetylcy steine and Metamizole may falsely depress this assay. Normal range: <150 mg/dLBorderline High: 150-199 mg/dLHigh: 200-499 mg/dLVery High: >500 mg/dL White blood cell (WBC) count Ordered By: Pito Avitia on 01-23-2025 WBC (Bld) [#/Vol] 7.8 10*3/uL 4.4-11.0 [facility] CBC W/Diff, Automatedon 12-0 Absolute Lymph 2.58 X10 3/uL Normal 0.83-4.51 [facility] Comment on above: Performed By: #### L 500.4100, L500.4050, L506.1000, L501.9985, L100.0100 #### [facility] [address] [place], [address] Absolute Neut 4.3 X10 3/uL Normal 2.0-7.7 [facility] Comment on above: Performed By: #### L 500.4100, L500.4050, L506.1000, L501.9985, L100.0100 #### [facility] [address] [place], [address] Basophils/100 WBC (Bld) 0.5 % Normal 0-1 [facility] Comment on above: Performed By: #### L 500.4100, L500.4050, L506.1000, L501.9985, L100.0100 #### [facility] [address] [place], [address] Eosinophils/100 WBC (Bld) 1.3 % Normal 0-5 [facility] Comment on above: Performed By: #### L 500.4100, L500.4050, L506.1000, L501.9985, L100.0100 #### [facility] [address] [place], [address] Erythrocyte distribution width (RBC) [Ratio] 12.8 % Normal 11.6-14.6 [facility] Comment on above: Performed By: #### L 500.4100, L500.4050, L506.1000, L501.9985, L100.0100 #### [facility] [address] [place], [address] Hematocrit (Bld) [Volume fraction] 42.8 % Normal 40-54 [facility] Comment on above: Performed By: #### L 500.4100, L500.4050, L506.1000, L501.9985, L100.0100 #### [facility] [address] [place], [address] Hemoglobin (Bld) [Mass/Vol] 14.6 g/dL Normal 13.0-16.5 [facility] Comment on above: Performed By: #### L 500.4100, L500.4050, L506.1000, L501.9985, L100.0100 #### [facility] [address] [place], [address] IG% 0.500 Normal 0.0-0.9 [facility] Comment on above: Result Comment: IG% - Immature Granulocytes (promyelocytes, myelocytes and metamyelocytes) > 1% indicates that a LEFT SHIFT is Present. Performed By: #### L 500.4100, L500.4050, L506.1000, L501.9985, L100.0100 #### [facility] [address] [place], [address] Lymphocytes/100 WBC (Bld) 34.0 % Normal 19-41 [facility] Comment on above: Performed By: #### L 500.4100, L500.4050, L506.1000, L501.9985, L100.0100 #### [facility] [address] [place], [address] MCH (RBC) [Entitic mass] 33.5 pg High 27.0-32.0 [facility] Comment on above: Performed By: #### L 500.4100, L500.4050, L506.1000, L501.9985, L100.0100 #### [facility] [address] [place], [address] MCHC (RBC) [Mass/Vol] 34.1 g/dL Normal 32-36 [facility] Comment on above: Performed By: #### L 500.4100, L500.4050, L506.1000, L501.9985, L100.0100 #### [facility] [address] [place], [address] MCV (RBC) [Entitic vol] 98.2 fL High 80-94 [facility] Comment on above: Performed By: #### L 500.4100, L500.4050, L506.1000, L501.9985, L100.0100 #### [facility] [address] [place], [address] Monocytes/100 WBC (Bld) 7.4 % Normal 0-10 [facility] Comment on above: Performed By: #### L 500.4100, L500.4050, L506.1000, L501.9985, L100.0100 #### [facility] [address] [place], [address] Neutrophils/100 WBC (Bld) 56.3 % Normal 47-70 [facility] Comment on above: Performed By: #### L 500.4100, L500.4050, L506.1000, L501.9985, L100.0100 #### [facility] [address] [place], [address] Nucleated RBC (Bld) [#/Vol] 0 10*3/uL Normal 0-5 [facility] Comment on above: Performed By: #### L 500.4100, L500.4050, L506.1000, L501.9985, L100.0100 #### [facility] [address] [place], [address] Platelet mean volume (Bld) [Entitic vol] 9.6 fL Normal 6.2-12.0 [facility] Comment on above: Performed By: #### L 500.4100, L500.4050, L506.1000, L501.9985, L100.0100 #### [facility] [address] [place], [address] Platelets (Bld) [#/Vol] 217 10*3/uL Normal 150-450 [facility] Comment on above: Performed By: #### L 500.4100, L500.4050, L506.1000, L501.9985, L100.0100 #### [facility] [address] [place], [address] RBC (Bld) [#/Vol] 4.36 10*6/uL Low 4.6-6.2 [facility] Comment on above: Performed By: #### L 500.4100, L500.4050, L506.1000, L501.9985, L100.0100 #### [facility] [address] [place], [address] RDW SD 46.2 fl High 35.1-43.9 [facility] Comment on above: Performed By: #### L 500.4100, L500.4050, L506.1000, L501.9985, L100.0100 #### [facility] [address] [place], [address] WBC (Bld) [#/Vol] 7.6 10*3/uL Normal 4.4-11.0 [facility] Comment on above: Performed By: #### L 500.4100, L500.4050, L506.1000, L501.9985, L100.0100 #### [facility] [address] [place], [address] Comprehensive Metabolic Prof scon 09-25-2024 Albumin [Mass/Vol] 4.2 g/dL Normal 3.2-5.0 [facility] Comment on above: Performed By: #### L 500.4100, L500.4050, L506.1000, L501.9985, L100.0100 #### [facility] [address] [place], [address] Albumin/Globulin [Mass ratio] 1.2 {ratio} Normal 0.9-2.4 [facility] Comment on above: Performed By: #### L 500.4100, L500.4050, L506.1000, L501.9985, L100.0100 #### [facility] [address] [place], [address] ALK P 54 U/L Normal 45-117 [facility] Comment on above: Performed By: #### L 500.4100, L500.4050, L506.1000, L501.9985, L100.0100 #### [facility] [address] [place], [address] ALT [Catalytic activity/Vol] 47 U/L Normal 16-61 [facility] Comment on above: Performed By: #### L 500.4100, L500.4050, L506.1000, L501.9985, L100.0100 #### [facility] [address] [place], [address] AST [Catalytic activity/Vol] 21 U/L Normal 15-37 [facility] Comment on above: Performed By: #### L 500.4100, L500.4050, L506.1000, L501.9985, L100.0100 #### [facility] [address] [place], [address] Bilirubin [Mass/Vol] 0.50 mg/dL Normal 0.20-1.00 [facility] Comment on above: Result Comment: For patients on eltrombopag therapy, use of Dimension [place] TBIL is not recommended. Performed By: #### L 500.4100, L500.4050, L506.1000, L501.9985, L100.0100 #### [facility] [address] [place], [address] BUN/CRE 17.2 RATIO Normal 10-20 [facility] Comment on above: Performed By: #### L 500.4100, L500.4050, L506.1000, L501.9985, L100.0100 #### [facility] [address] [place], [address] CA,Total 9.9 mg/dL Normal 8.5-10.1 [facility] Comment on above: Performed By: #### L 500.4100, L500.4050, L506.1000, L501.9985, L100.0100 #### [facility] [address] [place], [address] Chloride [Moles/Vol] 98 mmol/L Normal 98-107 [facility] Comment on above: Performed By: #### L 500.4100, L500.4050, L506.1000, L501.9985, L100.0100 #### [facility] [address] [place], [address] CO2 [Moles/Vol] 28.0 mmol/L Normal 21.0-32.0 [facility] Comment on above: Performed By: #### L 500.4100, L500.4050, L506.1000, L501.9985, L100.0100 #### [facility] [address] [place], [address] Creatinine [Mass/Vol] 0.82 mg/dL Normal 0.70-1.30 [facility] Comment on above: Result Comment: The validity of the calculated GFR GFRAA in patients over 70 years has not been determined. Clinical correlation is essential. Performed By: #### L 500.4100, L500.4050, L506.1000, L501.9985, L100.0100 #### [facility] [address] [place], [address] EST GFR - AA 120 mL/min Normal >60 [facility] Comment on above: Result Comment: Afri can [place] GFR Calc Performed By: #### L 500.4100, L500.4050, L506.1000, L501.9985, L100.0100 #### [facility] [address] [place], [address] GAP 5 Normal 5-15 [facility] Comment on above: Performed By: #### L 500.4100, L500.4050, L506.1000, L501.9985, L100.0100 #### [facility] [address] [place], [address] GFR/1.73 sq M.predicted among non-blacks MDRD (S/P/Bld) [Vol rate/Area] 99 mL/min/{1.73_m2} Normal >60 [facility] Comment on above: Result Comment: Non- GFR Calc Performed By: #### L 500.4100, L500.4050, L506.1000, L501.9985, L100.0100 #### [facility] [address] [place], [address] Globulin (S) [Mass/Vol] 3.5 g/dL Normal 2.2-4.2 [facility] Comment on above: Performed By: #### L 500.4100, [id number], L506.1000, L501.9985, L100.0100 #### [facility] [address] [place], [address] Glucose [Mass/Vol] 113 mg/dL High 74-106 [facility] Comment on above: Result Comment: Fast ing Glucose result from 100 to 125 mg/dL suggests IMPAIRED HOMEOSTASIS per A.D.A. criteria. Performed By: #### L 500.4100, L500.4050, L506.1000, L501.9985, L100.0100 #### [facility] [address] [place], [address] Potassium [Moles/Vol] 4.4 mmol/L Normal 3.5-5.1 [facility] Comment on above: Performed By: #### L 500.4100, L500.4050, L506.1000, L501.9985, L100.0100 #### [facility] [address] [place], [address] Sodium [Moles/Vol] 131 mmol/L Low 136-145 [facility] Comment on above: Performed By: #### L 500.4100, [id number], L506.1000, L501.9985, L100.0100 #### [facility] [address] [place], [address] T PROT 7.7 g/dL Normal 6.4-8.2 [facility] Comment on above: Performed By: #### L 500.4100, L500.4050, L506.1000, L501.9985, L100.0100 #### [facility] [address] [place], [address] Urea nitrogen [Mass/Vol] 14 mg/dL Normal 7-18 [facility] Comment on above: Performed By: #### L 500.4100, L500.4050, L506.1000, L501.9985, L100.0100 #### [facility] [address] [place], [address] Hemoglobin A1con 09-25-2024 HbA1c (Bld) [Mass fraction] 5.9 % High 3.8-5.6 [facility] Comment on above: Result Comment: Norm al < 5.7 % Prediabetic 5.7 - 6.4 % Diabetic >or= 6.5 % Please note range changes. Performed By: #### L 500.4100, L500.4050, L506.1000, L501.9985, L100.0100 #### [facility] [address] [place], [address] Lipid Profileon 09-25-2024 Cholesterol [Mass/Vol] 132 mg/dL Normal 200 [facility] Comment on above: Result Comment: <200 mg/dL Desirable 200-240 mg/dL Borderline >240 mg/dL High Risk Performed By: #### L 500.4100, L500.4050, L506.1000, L501.9985, L100.0100 #### [facility] [address] [place], [address] Cholesterol in HDL [Mass/Vol] 37 mg/dL Low [facility] Comment on above: Result Comment: The drugs N-Acetylcysteine and Metamizole may falsely depress this assay. Reference Range HDL <40 mg/dL Low HDL Cholesterol HDL >or= 60 mg/dL High HDL Cholesterol Performed By: #### L 500.4100, L500.4050, L506.1000, L501.9985, L100.0100 #### [facility] [address] [place], [address] Cholesterol in LDL [Mass/Vol] 66 mg/dL Normal 0-130 [facility] Comment on above: Performed By: #### L 500.4100, L500.4050, L506.1000, L501.9985, L100.0100 #### [facility] [address] [place], [address] Cholesterol in VLDL [Mass/Vol] 29 mg/dL Normal 5-40 [facility] Comment on above: Performed By: #### L 500.4100, L500.4050, L506.1000, L501.9985, L100.0100 #### [facility] [address] [place], [address] Triglyceride [Mass/Vol] 145 mg/dL Normal [facility] Comment on above: Result Comment: The drugs N-Acetylcysteine and Metamizole may falsely depress this assay. Serum Triglycerides Reference Interval Normal <150 mg/dL Borderline high 150 - 199 mg/dL High 200 - 499 mg/dL Very High > or = 500 mg/dL Performed By: #### L 500.4100, L500.4050, L506.1000, L501.9985, L100.0100 #### [facility] [address] [place], [address] Vitamin D,25 Hydroxyon 09-25 Vitamin D 25-OH 58.5 ng/mL Normal [facility] Comment on above: Result Comment: Yasmin min D 25(OH) Status Range Deficiency <20 ng/mL (50nmol/L) Insufficiency 20 - 30 ng/mL (50 - 75 nmol/L) Sufficiency 30 - 100 ng/mL (75 - 250 nmol/L) Toxicity >100 ng/mL (>250 nmol/L) Performed By: #### L 500.4100, L500.4050, L506.1000, L501.9985, L100.0100 #### [facility] [address] [place], [address] Basophil percentageOrdered B y: Juan Briones on 02-09-2024 Basophil percentage < 1.0 mg/dL 0.70-1.30 [facility] No Panel InformationOrdered By: Juan Briones on 02-09-2024 Bedside Estimated GFR (eGFR) > 60.0000 mL/min >60 [facility] Absolute lymphocyte countOrd ered By: Pito Avitia on 01-31-2024 Lymphocytes Auto (Unsp spec) [#/Vol] 1.81 10*3/uL 0.83-4.51 [facility] Automated lymphocyte count a s percentage of total leukocytesOrdered By: Pito Avitia on 01-31-2024 Lymphocytes/100 WBC Auto (Unsp spec) 25.2 % 19-41 [facility] Basophil percentageOrdered B y: Pito Avitia on 01-31-2024 Basophil percentage 0 SEEN /hpf 0-5 [facility] Basophils/100 WBC (Bld) 0.6 % 0-1 [facility] Bilirubin [Mass/Vol] 0.70 mg/dL 0.20-1.00 [facility] Comment on above: For patients on eltr ombopag therapy, use of Dimension [place] TBIL is not recommended. Chloride [Moles/Vol] 100 mmol/L 98-107 [facility] Cholesterol [Mass/Vol] 104 mg/dL <200 [facility] Comment on above: <200 mg/dL Desirable 200-240 mg/dL Borderline >240 mg/dL High Risk Eosinophils/100 WBC (Bld) 1.1 % 0-5 [facility] Glucose [Mass/Vol] 166 mg/dL 74-106 [facility] Comment on above: Fasting Glucose resu lt greater than or equal to 126 mg/dL suggests DIABETES MELLITUS per A.D.A. criteria. Hemoglobin (Bld) [Mass/Vol] 12.9 g/dL 13.0-16.5 [facility] Monocytes/100 WBC (Bld) 8.5 % 0-10 [facility] Neutrophils (Bld) [#/Vol] 4.6 10*3/uL 2.0-7.7 [facility] Neutrophils/100 WBC (Bld) 63.9 % 47-70 [facility] Potassium [Moles/Vol] 3.9 mmol/L 3.5-5.1 [facility] Protein [Mass/Vol] 6.9 g/dL 6.4-8.2 [facility] Sodium [Moles/Vol] 132 mmol/L 136-145 [facility] Triglyceride [Mass/Vol] 108 mg/dL <199 [facility] Comment on above: The drugs N-Acetylcy steine and Metamizole may falsely depress this assay.Serum Triglycerides Reference Interval Normal <150 mg/dL Borderline high 150 - 199 mg/dL High 200 - 499 mg/dL Very High > or = 500 mg/dL WBC (Bld) [#/Vol] 7.2 10*3/uL 4.4-11.0 [facility] Bilirubin Test strip Ql (U)O rdered By: Pito Avitia on 01-31-2024 Bilirubin Ql (U) Negative Negative [facility] Determination of erythrocyte mean corpuscular volume (MCV)Ordered By: Pito Avitia on 01-31-2024 MCV (RBC) [Entitic vol] 100.0 fL 80-94 [facility] Erythrocyte distribution wid th ratioOrdered By: Pito Avitia on 01-31-2024 Erythrocyte distribution width (RBC) [Ratio] 13.2 % 11.6-14.6 [facility] Erythrocyte distribution wid th standard deviationOrdered By: Pito Avitia on 01-31-2024 Erythrocyte distribution width (RBC) [Entitic vol] 48.7 fL 35.1-43.9 [facility] Hematocrit Auto (Bld) [Volum e fraction]Ordered By: Pito Avitia on 01-31-2024 Hematocrit (Bld) [Volume fraction] 37.1 % 40-54 [facility] Immature granulocytes/100 WB C Auto (Bld)Ordered By: Pito Avitia on 01-31-2024 Immature granulocytes/100 WBC (Bld) 0.700 % 0.0-0.9 [facility] Comment on above: IG% - Immature Granu locytes (promyelocytes, myelocytes and metamyelocytes) > 1% indicates that a LEFT SHIFT is Present. Ketones Test strip Ql (U)Ord ered By: Pito Avitia on 01-31-2024 Ketones Ql (U) Negative Negative [facility] - Chemistry and C hemistry - challengeOrdered By: Pito Avitia on 01-31-2024 Albumin/Globulin [Mass ratio] 1.2 {ratio} 0.9-2.4 [facility] ALP [Catalytic activity/Vol] 48 U/L 45-117 [facility] ALT [Catalytic activity/Vol] 46 U/L 16-61 [facility] Cholesterol in HDL [Mass/Vol] 34 mg/dL >40 [facility] Comment on above: The drugs N-Acetylcy steine and Metamizole may falsely depress this assay. Reference Range HDL <40 mg/dL Low HDL Cholesterol HDL >or= 60 mg/dL High HDL Cholesterol Cholesterol in LDL [Mass/Vol] 48 mg/dL 0-130 [facility] CO2 [Moles/Vol] 24.0 mmol/L 21.0-32.0 [facility] Globulin (S) [Mass/Vol] 3.2 g/dL 2.2-4.2 [facility] Urea nitrogen/Creatinine [Mass ratio] 18.4 mg/mg 10-20 [facility] - Hematology and Cell countsOrdered By: Pito Avitia on 01-31-2024 MCH (RBC) [Entitic mass] 34.8 pg 27.0-32.0 [facility] MCHC (RBC) [Mass/Vol] 34.8 g/dL 32-36 [facility] Nucleated RBC/100 WBC (Bld) [Ratio] 0 % 0-5 [facility] Platelet mean volume (Bld) [Entitic vol] 9.3 fL 6.2-12.0 [facility] Platelets (Bld) [#/Vol] 244 10*3/uL 150-450 [facility] Mucus LM Ql (Urine sed)Order ed By: Pito Avitia on 01-31-2024 Mucus Ql (Urine sed) 0 SEEN /hpf [facility] Nitrite Test strip Ql (U)Ord ered By: Pito Avitia on 01-31-2024 Nitrite Ql (U) Negative Negative [facility] No Panel InformationOrdered By: Pito Avitia on 01-31-2024 Estimated GFR (MDRD) Amer 131 mL/min >60 [facility] Comment on above: GFR Calc Estimated GFR (MDRD) Non-Af Amer 108 mL/min >60 [facility] Comment on above: Non- GFR Calc Prostate Specific Antigen Screen 0.54 ng/mL 0.00-4.00 [facility] Comment on above: This test was perfor med using the TPSA assay method for [employer] chemistry system. Values obtained with differentassay methods cannot be used interchangably.When changing PSA assays in the course of monitoring apatient, additional sequential testing should be carriedout to confirm baseline values. Urine Microalbumin/Creatinine Ratio TNP [facility] Comment on above: Test not performed Urine RBC 0-5 SEEN /hpf 0-5 [facility] Vitamin D 25-Hydroxy 56.5 ng/mL [facility] Comment on above: Vitamin D 25(OH) Sta tus Range Deficiency <20 ng/mL (50nmol/L) Insufficiency 20 - 30 ng/mL (50 - 75 nmol/L) Sufficiency 30 - 100 ng/mL (75 - 250 nmol/L) Toxicity >100 ng/mL (>250 nmol/L) VLDL Cholesterol 22 mg/dL 5-40 [facility] Protein Test strip Ql (U)Ord ered By: Pito Avitia on 01-31-2024 Protein Ql (U) Negative Negative [facility] RBC Auto (Bld) [#/Vol]Ordere d By: Pito Avitia on 01-31-2024 RBC (Bld) [#/Vol] 3.71 10*6/uL 4.6-6.2 [facility] Serum or plasma calcium kamaljit urement (mass/volume)Ordered By: Pito Avitia on 01-31-2024 Calcium [Mass/Vol] 9.3 mg/dL 8.5-10.1 [facility] Serum or plasma creatinine m easurement (mass/volume)Ordered By: Pito Avitia on 01-31-2024 Creatinine [Mass/Vol] 0.76 mg/dL 0.70-1.30 [facility] Comment on above: The validity of the calculated GFR & GFRAA in patients over 70 years has not been determined. Clinical correlation is essential. Serum or plasma urea nitroge n measurement (mass/volume)Ordered By: Pito Avitia on 01-31-2024 Urea nitrogen [Mass/Vol] 14 mg/dL 7-18 [facility] Squamous epithelial cells de tection in urine sediment by light microscopyOrdered By: Pito Avitia on 01-31-2024 Epithelial cells.squamous LM Ql (Urine sed) 0 SEEN /hpf 0-5 [facility] Thin prep Papanicolaou smear with manual screeningOrdered By: Pito Avitia on 01-31-2024 Thin prep Papanicolaou smear with manual screening 3.7 g/dL 3.2-5.0 [facility] Thin prep Papanicolaou smear with manual screening 29 U/L 15-37 [facility] Thin prep Papanicolaou smear with manual screening 8 5-15 [facility] Thin prep Papanicolaou smear with manual screening < 5.0 mg/L NO RANGE EST. [facility] Urine blood detectionOrdered By: Pito Avitia on 01-31-2024 RBC Ql (U) 10 /ul Negative [facility] Urine clarityOrdered By: Torey Avitia on 01-31-2024 Clarity (U) Clear Clear [facility] Urine color determinationOrd ered By: Pito Avitia on 01-31-2024 Color (U) Yellow Yellow [facility] Urine creatinine measurement (mass/volume)Ordered By: Pito Avitia on 01-31-2024 Creatinine (U) [Mass/Vol] 104.00 mg/dL NO RANGE EST. [facility] Urine glucose detectionOrder ed By: Pito Avitia on 01-31-2024 Glucose Ql (U) Normal mg/dl Normal [facility] Urine leukocyte esterase det ection by dipstickOrdered By: Pito Avitia on 01-31-2024 Leukocyte esterase Test strip Ql (U) Negative Negative [facility] Urine pHOrdered By: Pito lloyd on 01-31-2024 pH (U) 7.0 [pH] 5.0 - 8.0 [facility] Urine sediment bacteria coun t by microscopy (number/high power field)Ordered By: Pito Avitia on 01-31-2024 Bacteria LM.HPF (Urine sed) [#/Area] 0 /[HPF] None Seen [facility] Urine specific gravity measu rementOrdered By: Pito Avitia on 01-31-2024 Specific gravity (U) [Rel density] 1.010 1.002-1.030 [facility] Urine urobilinogen measureme ntOrdered By: Pito Avitia on 01-31-2024 Urobilinogen Ql (U) Normal mg/dl Normal [facility] Whole blood hemoglobin A1c/t otal hemoglobin ratio (mass fraction)Ordered By: Pito Avitia on 01-31-2024 HbA1c (Bld) [Mass fraction] 6.2 % 3.8-5.6 [facility] Comment on above: Normal < 5.7 % Predi abetic 5.7 - 6.4 % Diabetic >or= 6.5 % Please note range changes. Absolute lymphocyte countOrd ered By: Aby Kimble on 06-14-2023 Lymphocytes Auto (Unsp spec) [#/Vol] 2.03 10*3/uL 0.83-4.51 [facility] Basophil percentageOrdered B y: Aby Kimble on 06-14-2023 Basophils/100 WBC (Bld) 0.6 % 0-1 [facility] Chloride [Moles/Vol] 101 mmol/L 98-107 [facility] Eosinophils/100 WBC (Bld) 1.5 % 0-5 [facility] Glucose [Mass/Vol] 126 mg/dL 74-106 [facility] Comment on above: Fasting Glucose resu lt greater than or equal to 126 mg/dL suggests DIABETES MELLITUS per A.D.A. criteria. Neutrophils (Bld) [#/Vol] 5.7 10*3/uL 2.0-7.7 [facility] Neutrophils/100 WBC (Bld) 65.7 % 47-70 [facility] Potassium [Moles/Vol] 4.3 mmol/L 3.5-5.1 [facility] Sodium [Moles/Vol] 136 mmol/L 136-145 [facility] WBC (Bld) [#/Vol] 8.6 10*3/uL 4.4-11.0 [facility] Blood erythrocytes count (nu mber/volume)Ordered By: Aby Kimble on 06-14-2023 RBC (Bld) [#/Vol] 4.20 10*6/uL 4.6-6.2 [facility] Blood hemoglobin measurement (mass/volume)Ordered By: Aby Kimble on 06-14-2023 Hemoglobin (Bld) [Mass/Vol] 14.1 g/dL 13.0-16.5 [facility] Blood lymphocytes/100 leukoc ytesOrdered By: Aby Kimble on 06-14-2023 Lymphocytes/100 WBC (Bld) 23.5 % 19-41 [facility] Blood monocytes/100 leukocyt esOrdered By: Aby Kimble on 06-14-2023 Monocytes/100 WBC (Bld) 8.0 % 0-10 [facility] Blood platelet mean volumeOr dered By: Aby Kimble on 06-14-2023 Platelet mean volume (Bld) [Entitic vol] 10.5 fL 6.2-12.0 [facility] Determination of erythrocyte mean corpuscular volume (MCV)Ordered By: Aby Kimble on 06-14-2023 MCV (RBC) [Entitic vol] 98.8 fL 80-94 [facility] Hematocrit Auto (Bld) [Volum e fraction]Ordered By: Aby Kimble on 06-14-2023 Hematocrit (Bld) [Volume fraction] 41.5 % 40-54 [facility] - Chemistry and C hemistry - challengeOrdered By: Aby Kimble on 06-14-2023 CO2 [Moles/Vol] 31.0 mmol/L 21.0-32.0 [facility] Urea nitrogen/Creatinine [Mass ratio] 17.8 mg/mg 10-20 [facility] - Hematology and Cell countsOrdered By: Aby Kimble on 06-14-2023 Erythrocyte distribution width (RBC) [Entitic vol] 47.6 fL 35.1-43.9 [facility] Erythrocyte distribution width (RBC) [Ratio] 13.2 % 11.6-14.6 [facility] Immature granulocytes/100 WBC (Bld) 0.700 % 0.0-0.9 [facility] Comment on above: IG% - Immature Granu locytes (promyelocytes, myelocytes and metamyelocytes) > 1% indicates that a LEFT SHIFT is Present. MCH (RBC) [Entitic mass] 33.6 pg 27.0-32.0 [facility] Nucleated RBC/100 WBC (Bld) [Ratio] 0 % 0-5 [facility] MCHC Auto (RBC) [Mass/Vol]Or dered By: Aby Kimble on 06-14-2023 MCHC (RBC) [Mass/Vol] 34.0 g/dL 32-36 [facility] No Panel InformationOrdered By: Aby Kimble on 06-14-2023 Estimated GFR (MDRD) Amer 137 mL/min >60 [facility] Comment on above: GFR Calc Estimated GFR (MDRD) Non-Af Amer 113 mL/min >60 [facility] Comment on above: Non- GFR Calc Platelets bldOrdered By: Mami Kimble on 06-14-2023 Platelets (Bld) [#/Vol] 221 10*3/uL 150-450 [facility] Serum or plasma calcium kamaljit urement (mass/volume)Ordered By: Aby Kimble on 06-14-2023 Calcium [Mass/Vol] 10.0 mg/dL 8.5-10.1 [facility] Serum or plasma creatinine m easurement (mass/volume)Ordered By: Aby Kimble on 06-14-2023 Creatinine [Mass/Vol] 0.73 mg/dL 0.70-1.30 [facility] Comment on above: The validity of the calculated GFR & GFRAA in patients over 70 years has not been determined. Clinical correlation is essential. Serum or plasma urea nitroge n measurement (mass/volume)Ordered By: Aby Kimble on 06-14-2023 Urea nitrogen [Mass/Vol] 13 mg/dL 7-18 [facility] Thin prep Papanicolaou smear with manual screeningOrdered By: Aby Kimble on 06-14-2023 Thin prep Papanicolaou smear with manual screening 4 5-15 [facility] Whole blood hemoglobin A1c/t otal hemoglobin ratio (mass fraction)Ordered By: Aby Kimble on 06-14-2023 HbA1c (Bld) [Mass fraction] 6.0 % 3.8-5.6 [facility] Comment on above: Normal < 5.7 % Predi abetic 5.7 - 6.4 % Diabetic >or= 6.5 % Please note range changes. Absolute lymphocyte countOrd ered By: Pito Avitia on 05-20-2023 Lymphocytes Auto (Unsp spec) [#/Vol] 2.76 10*3/uL 0.83-4.51 [facility] Basophil percentageOrdered B y: Pito Wilkinsonvipul on 05-20-2023 Basophils/100 WBC (Bld) 0.5 % 0-1 [facility] Bilirubin [Mass/Vol] 0.50 mg/dL 0.20-1.00 [facility] Comment on above: For patients on eltr ombopag therapy, use of Dimension [place] TBIL is not recommended. Chloride [Moles/Vol] 104 mmol/L 98-107 [facility] Cholesterol [Mass/Vol] 131 mg/dL <200 [facility] Comment on above: <200 mg/dL Desirable 200-240 mg/dL Borderline >240 mg/dL High Risk Eosinophils/100 WBC (Bld) 1.8 % 0-5 [facility] Glucose [Mass/Vol] 123 mg/dL 74-106 [facility] Comment on above: Fasting Glucose resu lt from 100 to 125 mg/dL suggests IMPAIRED HOMEOSTASIS per A.D.A. criteria. Neutrophils (Bld) [#/Vol] 4.7 10*3/uL 2.0-7.7 [facility] Neutrophils/100 WBC (Bld) 57.2 % 47-70 [facility] Potassium [Moles/Vol] 4.2 mmol/L 3.5-5.1 [facility] Protein [Mass/Vol] 7.3 g/dL 6.4-8.2 [facility] Sodium [Moles/Vol] 137 mmol/L 136-145 [facility] Triglyceride [Mass/Vol] 151 mg/dL <199 [facility] Comment on above: The drugs N-Acetylcy steine and Metamizole may falsely depress this assay.Serum Triglycerides Reference Interval Normal <150 mg/dL Borderline high 150 - 199 mg/dL High 200 - 499 mg/dL Very High > or = 500 mg/dL WBC (Bld) [#/Vol] 8.2 10*3/uL 4.4-11.0 [facility] Blood erythrocytes count (nu mber/volume)Ordered By: Pito Avitia on 05-20-2023 RBC (Bld) [#/Vol] 4.18 10*6/uL 4.6-6.2 [facility] Blood hemoglobin measurement (mass/volume)Ordered By: Pito Avitia on 05-20-2023 Hemoglobin (Bld) [Mass/Vol] 14.1 g/dL 13.0-16.5 [facility] Blood lymphocytes/100 leukoc ytesOrdered By: Pito Avitia on 05-20-2023 Lymphocytes/100 WBC (Bld) 33.8 % 19-41 [facility] Blood monocytes/100 leukocyt esOrdered By: Pito Avitia on 05-20-2023 Monocytes/100 WBC (Bld) 6.3 % 0-10 [facility] Blood platelet mean volumeOr dered By: Pito Avitia on 05-20-2023 Platelet mean volume (Bld) [Entitic vol] 9.9 fL 6.2-12.0 [facility] Determination of erythrocyte mean corpuscular volume (MCV)Ordered By: Pito Avitia on 05-20-2023 MCV (RBC) [Entitic vol] 98.3 fL 80-94 [facility] Hematocrit Auto (Bld) [Volum e fraction]Ordered By: Pito Avitia on 05-20-2023 Hematocrit (Bld) [Volume fraction] 41.1 % 40-54 [facility] - Chemistry and C hemistry - challengeOrdered By: Pito Avitia on 05-20-2023 ALP [Catalytic activity/Vol] 50 U/L 45-117 [facility] ALT [Catalytic activity/Vol] 39 U/L 16-61 [facility] CO2 [Moles/Vol] 28.0 mmol/L 21.0-32.0 [facility] Globulin (S) [Mass/Vol] 3.4 g/dL 2.2-4.2 [facility] Urea nitrogen/Creatinine [Mass ratio] 13.0 mg/mg 10-20 [facility] - Hematology and Cell countsOrdered By: Pito Avitia on 05-20-2023 Erythrocyte distribution width (RBC) [Entitic vol] 47.8 fL 35.1-43.9 [facility] Erythrocyte distribution width (RBC) [Ratio] 13.2 % 11.6-14.6 [facility] Immature granulocytes/100 WBC (Bld) 0.400 % 0.0-0.9 [facility] Comment on above: IG% - Immature Granu locytes (promyelocytes, myelocytes and metamyelocytes) > 1% indicates that a LEFT SHIFT is Present. MCH (RBC) [Entitic mass] 33.7 pg 27.0-32.0 [facility] Nucleated RBC/100 WBC (Bld) [Ratio] 0 % 0-5 [facility] MCHC Auto (RBC) [Mass/Vol]Or dered By: Pito Avitia on 05-20-2023 MCHC (RBC) [Mass/Vol] 34.3 g/dL 32-36 [facility] No Panel InformationOrdered By: Pito Avitia on 05-20-2023 Estimated GFR (MDRD) Amer 129 mL/min >60 [facility] Comment on above: GFR Calc Estimated GFR (MDRD) Non-Af Amer 107 mL/min >60 [facility] Comment on above: Non- GFR Calc Vitamin D 25-Hydroxy 48.2 ng/mL [facility] Comment on above: Vitamin D 25(OH) Sta tus Range Deficiency <20 ng/mL (50nmol/L) Insufficiency 20 - 30 ng/mL (50 - 75 nmol/L) Sufficiency 30 - 100 ng/mL (75 - 250 nmol/L) Toxicity >100 ng/mL (>250 nmol/L) Platelets bldOrdered By: Torey Avitia on 05-20-2023 Platelets (Bld) [#/Vol] 218 10*3/uL 150-450 [facility] Serum or plasma albumin kamaljit urement (mass/volume)Ordered By: Pito Avitia on 05-20-2023 Albumin [Mass/Vol] 3.9 g/dL 3.2-5.0 [facility] Serum or plasma albumin/glob ulin mass ratioOrdered By: Pito Avitia on 05-20-2023 Albumin/Globulin [Mass ratio] 1.1 {ratio} 0.9-2.4 [facility] Serum or plasma calcium kamaljit urement (mass/volume)Ordered By: Pito Avitia on 05-20-2023 Calcium [Mass/Vol] 9.1 mg/dL 8.5-10.1 [facility] Serum or plasma cholesterol in HDL measurement (mass/volume)Ordered By: Pito Avitia on 05-20-2023 Cholesterol in HDL [Mass/Vol] 36 mg/dL >40 [facility] Comment on above: The drugs N-Acetylcy steine and Metamizole may falsely depress this assay. Reference Range HDL <40 mg/dL Low HDL Cholesterol HDL >or= 60 mg/dL High HDL Cholesterol Serum or plasma cholesterol in VLDL measurement (mass/volume)Ordered By: Pito Avitia on 05-20-2023 Cholesterol in VLDL [Mass/Vol] 30 mg/dL 5-40 [facility] Serum or plasma creatinine m easurement (mass/volume)Ordered By: Pito Avitia on 05-20-2023 Creatinine [Mass/Vol] 0.77 mg/dL 0.70-1.30 [facility] Comment on above: The validity of the calculated GFR & GFRAA in patients over 70 years has not been determined. Clinical correlation is essential. Serum or plasma low density lipoprotein (LDL) cholesterol measurement (mass/volume)Ordered By: Pito Avitia on 05-20-2023 Cholesterol in LDL [Mass/Vol] 65 mg/dL 0-130 [facility] Serum or plasma urea nitroge n measurement (mass/volume)Ordered By: Pito Avitia on 05-20-2023 Urea nitrogen [Mass/Vol] 10 mg/dL 7-18 [facility] Thin prep Papanicolaou smear with manual screeningOrdered By: Pito Avitia on 05-20-2023 Thin prep Papanicolaou smear with manual screening 26 U/L 15-37 [facility] Thin prep Papanicolaou smear with manual screening 5 5-15 [facility] Whole blood hemoglobin A1c/t otal hemoglobin ratio (mass fraction)Ordered By: Pito Avitia on 05-20-2023 HbA1c (Bld) [Mass fraction] 6.1 % 3.8-5.6 [facility] Comment on above: Normal < 5.7 % Predi abetic 5.7 - 6.4 % Diabetic >or= 6.5 % Please note range changes. Absolute lymphocyte countOrd ered By: Dr. Avitia on 01-20-2023 Lymphocytes Auto (Unsp spec) [#/Vol] 2.75 10*3/uL 0.83-4.51 [facility] Basophil percentageOrdered B y: Dr. Avitia on 01-20-2023 Basophils/100 WBC (Bld) 0.5 % 0-1 [facility] Bilirubin [Mass/Vol] 0.30 mg/dL 0.20-1.00 [facility] Comment on above: For patients on eltr ombopag therapy, use of Dimension [place] TBIL is not recommended. Chloride [Moles/Vol] 100 mmol/L 98-107 [facility] Cholesterol [Mass/Vol] 127 mg/dL <200 [facility] Comment on above: <200 mg/dL Desirable 200-240 mg/dL Borderline >240 mg/dL High Risk Eosinophils/100 WBC (Bld) 2.1 % 0-5 [facility] Glucose [Mass/Vol] 83 mg/dL 74-106 [facility] Neutrophils (Bld) [#/Vol] 3.6 10*3/uL 2.0-7.7 [facility] Neutrophils/100 WBC (Bld) 49.5 % 47-70 [facility] Potassium [Moles/Vol] 4.0 mmol/L 3.5-5.1 [facility] Protein [Mass/Vol] 7.6 g/dL 6.4-8.2 [facility] Sodium [Moles/Vol] 134 mmol/L 136-145 [facility] Triglyceride [Mass/Vol] 264 mg/dL <199 [facility] Comment on above: The drugs N-Acetylcy steine and Metamizole may falsely depress this assay.Serum Triglycerides Reference Interval Normal <150 mg/dL Borderline high 150 - 199 mg/dL High 200 - 499 mg/dL Very High > or = 500 mg/dL WBC (Bld) [#/Vol] 7.3 10*3/uL 4.4-11.0 [facility] Blood erythrocytes count (nu mber/volume)Ordered By: Dr. Avitia on 03-30-2023 RBC (Bld) [#/Vol] 4.22 10*6/uL 4.6-6.2 [facility] Blood hemoglobin measurement (mass/volume)Ordered By: Dr. Avitia on 01-20-2023 Hemoglobin (Bld) [Mass/Vol] 14.3 g/dL 13.0-16.5 [facility] Blood lymphocytes/100 leukoc ytesOrdered By: Dr. Avitia on 01-20-2023 Lymphocytes/100 WBC (Bld) 37.8 % 19-41 [facility] Blood monocytes/100 leukocyt esOrdered By: Dr. Avitia on 01-20-2023 Monocytes/100 WBC (Bld) 9.6 % 0-10 [facility] Blood platelet mean volumeOr dered By: Dr. Avitia on 01-20-2023 Platelet mean volume (Bld) [Entitic vol] 10.8 fL 6.2-12.0 [facility] Determination of erythrocyte mean corpuscular volume (MCV)Ordered By: Dr. Avitia on 01-20-2023 MCV (RBC) [Entitic vol] 99.3 fL 80-94 [facility] Hematocrit Auto (Bld) [Volum e fraction]Ordered By: Dr. Avitia on 01-20-2023 Hematocrit (Bld) [Volume fraction] 41.9 % 40-54 [facility] Laboratory - Chemistry and C hemistry - challengeOrdered By: Dr. Avitia on 01-20-2023 ALP [Catalytic activity/Vol] 54 U/L 45-117 [facility] ALT [Catalytic activity/Vol] 39 U/L 16-61 [facility] CO2 [Moles/Vol] 26.0 mmol/L 21.0-32.0 [facility] Globulin (S) [Mass/Vol] 3.4 g/dL 2.2-4.2 [facility] Urea nitrogen/Creatinine [Mass ratio] 18.0 mg/mg 10-20 [facility] Laboratory - Hematology and Cell countsOrdered By: Dr. Avitia on 01-20-2023 Erythrocyte distribution width (RBC) [Entitic vol] 47.9 fL 35.1-43.9 [facility] Erythrocyte distribution width (RBC) [Ratio] 13.2 % 11.6-14.6 [facility] Immature granulocytes/100 WBC (Bld) 0.500 % 0.0-0.9 [facility] Comment on above: IG% - Immature Granu locytes (promyelocytes, myelocytes and metamyelocytes) > 1% indicates that a LEFT SHIFT is Present. MCH (RBC) [Entitic mass] 33.9 pg 27.0-32.0 [facility] Nucleated RBC/100 WBC (Bld) [Ratio] 0 % 0-5 [facility] MCHC Auto (RBC) [Mass/Vol]Or dered By: Dr. Avitia on 01-20-2023 MCHC (RBC) [Mass/Vol] 34.1 g/dL 32-36 [facility] No Panel InformationOrdered By: Karen Marti on 01-20-2023 Prostate Specific Antigen Screen 0.73 ng/mL 0.00-4.00 [facility] Comment on above: This test was perfor med using the TPSA assay method for [employer] chemistry system. Values obtained with differentassay methods cannot be used interchangably.When changing PSA assays in the course of monitoring apatient, additional sequential testing should be carriedout to confirm baseline values. No Panel InformationOrdered By: Dr. Avitia on 01-20-2023 Estimated GFR (MDRD) Amer 139 mL/min >60 [facility] Comment on above: GFR Calc Estimated GFR (MDRD) Non-Af Amer 115 mL/min >60 [facility] Comment on above: Non- GFR Calc Thyroid Stimulating Hormone (TSH) 2.54 uIU/mL 0.358-3.74 [facility] Vitamin D 25-Hydroxy 44.0 ng/mL [facility] Comment on above: Vitamin D 25(OH) Sta tus Range Deficiency <20 ng/mL (50nmol/L) Insufficiency 20 - 30 ng/mL (50 - 75 nmol/L) Sufficiency 30 - 100 ng/mL (75 - 250 nmol/L) Toxicity >100 ng/mL (>250 nmol/L) Platelets bldOrdered By: Dr. Avitia on 01-20-2023 Platelets (Bld) [#/Vol] 228 10*3/uL 150-450 [facility] Serum or plasma albumin kamaljit urement (mass/volume)Ordered By: Dr. Avitia on 01-20-2023 Albumin [Mass/Vol] 4.2 g/dL 3.2-5.0 [facility] Serum or plasma albumin/glob ulin mass ratioOrdered By: Dr. Avitia on 01-20-2023 Albumin/Globulin [Mass ratio] 1.2 {ratio} 0.9-2.4 [facility] Serum or plasma calcium kamaljit urement (mass/volume)Ordered By: Dr. Avitia on 01-20-2023 Calcium [Mass/Vol] 9.2 mg/dL 8.5-10.1 [facility] Serum or plasma cholesterol in HDL measurement (mass/volume)Ordered By: Dr. Avitia on 01-20-2023 Cholesterol in HDL [Mass/Vol] 35 mg/dL >40 [facility] Comment on above: The drugs N-Acetylcy steine and Metamizole may falsely depress this assay. Reference Range HDL <40 mg/dL Low HDL Cholesterol HDL >or= 60 mg/dL High HDL Cholesterol Serum or plasma cholesterol in VLDL measurement (mass/volume)Ordered By: Dr. Avitia on 01-20-2023 Cholesterol in VLDL [Mass/Vol] 53 mg/dL 5-40 [facility] Serum or plasma creatinine m easurement (mass/volume)Ordered By: Dr. Avitia on 01-20-2023 Creatinine [Mass/Vol] 0.72 mg/dL 0.70-1.30 [facility] Comment on above: The validity of the calculated GFR & GFRAA in patients over 70 years has not been determined. Clinical correlation is essential. Serum or plasma low density lipoprotein (LDL) cholesterol measurement (mass/volume)Ordered By: Dr. Avitia on 01-20-2023 Cholesterol in LDL [Mass/Vol] 39 mg/dL 0-130 [facility] Serum or plasma urea nitroge n measurement (mass/volume)Ordered By: Dr. Avitia on 01-20-2023 Urea nitrogen [Mass/Vol] 13 mg/dL 7-18 [facility] Thin prep Papanicolaou smear with manual screeningOrdered By: Dr. Avitia on 01-20-2023 Thin prep Papanicolaou smear with manual screening 23 U/L 15-37 [facility] Thin prep Papanicolaou smear with manual screening 8 5-15 [facility] Whole blood hemoglobin A1c/t otal hemoglobin ratio (mass fraction)Ordered By: Dr. Avitia on 01-20-2023 HbA1c (Bld) [Mass fraction] 6.1 % 3.8-5.6 [facility] Comment on above: Normal < 5.7 % Predi abetic 5.7 - 6.4 % Diabetic >or= 6.5 % Please note range changes. Absolute lymphocyte countOrd ered By: Dr. Avitia on 10-29-2022 Lymphocytes Auto (Unsp spec) [#/Vol] 2.67 10*3/uL 0.83-4.51 [facility] Basophil percentageOrdered B y: Dr. Avitia on 10-29-2022 Basophils/100 WBC (Bld) 0.6 % 0-1 [facility] Bilirubin [Mass/Vol] 0.50 mg/dL 0.20-1.00 [facility] Comment on above: For patients on eltr ombopag therapy, use of Dimension [place] TBIL is not recommended. Chloride [Moles/Vol] 101 mmol/L 98-107 [facility] Cholesterol [Mass/Vol] 139 mg/dL <200 [facility] Comment on above: <200 mg/dL Desirable 200-240 mg/dL Borderline >240 mg/dL High Risk Eosinophils/100 WBC (Bld) 2.0 % 0-5 [facility] Glucose [Mass/Vol] 122 mg/dL 74-106 [facility] Comment on above: Fasting Glucose resu lt from 100 to 125 mg/dL suggests IMPAIRED HOMEOSTASIS per A.D.A. criteria. Neutrophils (Bld) [#/Vol] 4.4 10*3/uL 2.0-7.7 [facility] Neutrophils/100 WBC (Bld) 56.2 % 47-70 [facility] Potassium [Moles/Vol] 4.0 mmol/L 3.5-5.1 [facility] Protein [Mass/Vol] 7.9 g/dL 6.4-8.2 [facility] Sodium [Moles/Vol] 137 mmol/L 136-145 [facility] Triglyceride [Mass/Vol] 137 mg/dL <199 [facility] Comment on above: The drugs N-Acetylcy steine and Metamizole may falsely depress this assay.Serum Triglycerides Reference Interval Normal <150 mg/dL Borderline high 150 - 199 mg/dL High 200 - 499 mg/dL Very High > or = 500 mg/dL WBC (Bld) [#/Vol] 7.8 10*3/uL 4.4-11.0 [facility] Blood erythrocytes count (nu mber/volume)Ordered By: Dr. Avitia on 10-29-2022 RBC (Bld) [#/Vol] 4.57 10*6/uL 4.6-6.2 [facility] Blood hemoglobin measurement (mass/volume)Ordered By: Dr. Avitia on 10-29-2022 Hemoglobin (Bld) [Mass/Vol] 15.6 g/dL 13.0-16.5 [facility] Blood lymphocytes/100 leukoc ytesOrdered By: Dr. Avitia on 10-29-2022 Lymphocytes/100 WBC (Bld) 34.1 % 19-41 [facility] Blood monocytes/100 leukocyt esOrdered By: Dr. Avitia on 10-29-2022 Monocytes/100 WBC (Bld) 6.5 % 0-10 [facility] Blood platelet mean volumeOr dered By: Dr. Avitia on 10-29-2022 Platelet mean volume (Bld) [Entitic vol] 10.5 fL 6.2-12.0 [facility] Determination of erythrocyte mean corpuscular volume (MCV)Ordered By: Dr. Avitia on 10-29-2022 MCV (RBC) [Entitic vol] 99.8 fL 80-94 [facility] Hematocrit Auto (Bld) [Volum e fraction]Ordered By: Dr. Avitia on 10-29-2022 Hematocrit (Bld) [Volume fraction] 45.6 % 40-54 [facility] Laboratory - Chemistry and C hemistry - challengeOrdered By: Dr. Avitia on 10-29-2022 ALP [Catalytic activity/Vol] 49 U/L 45-117 [facility] ALT [Catalytic activity/Vol] 46 U/L 16-61 [facility] CO2 [Moles/Vol] 27.0 mmol/L 21.0-32.0 [facility] Globulin (S) [Mass/Vol] 3.8 g/dL 2.2-4.2 [facility] Urea nitrogen/Creatinine [Mass ratio] 19.3 mg/mg 10-20 [facility] Laboratory - Hematology and Cell countsOrdered By: Dr. Avitai on 10-29-2022 Erythrocyte distribution width (RBC) [Entitic vol] 46.5 fL 35.1-43.9 [facility] Erythrocyte distribution width (RBC) [Ratio] 12.7 % 11.6-14.6 [facility] Immature granulocytes/100 WBC (Bld) 0.600 % 0.0-0.9 [facility] Comment on above: IG% - Immature Granu locytes (promyelocytes, myelocytes and metamyelocytes) > 1% indicates that a LEFT SHIFT is Present. MCH (RBC) [Entitic mass] 34.1 pg 27.0-32.0 [facility] Nucleated RBC/100 WBC (Bld) [Ratio] 0 % 0-5 [facility] MCHC Auto (RBC) [Mass/Vol]Or dered By: Dr. Avitia on 10-29-2022 MCHC (RBC) [Mass/Vol] 34.2 g/dL 32-36 [facility] No Panel InformationOrdered By: Dr. Avitia on 10-29-2022 Estimated GFR (MDRD) Amer 128 mL/min >60 [facility] Comment on above: GFR Calc Estimated GFR (MDRD) Non-Af Amer 106 mL/min >60 [facility] Comment on above: Non- GFR Calc Urine Microalbumin/Creatinine Ratio 16.4 mg/g CRE <30 [facility] Vitamin D 25-Hydroxy 41.5 ng/mL [facility] Comment on above: Vitamin D 25(OH) Sta tus Range Deficiency <20 ng/mL (50nmol/L) Insufficiency 20 - 30 ng/mL (50 - 75 nmol/L) Sufficiency 30 - 100 ng/mL (75 - 250 nmol/L) Toxicity >100 ng/mL (>250 nmol/L) Platelets bldOrdered By: Dr. Avitia on 10-29-2022 Platelets (Bld) [#/Vol] 217 10*3/uL 150-450 [facility] Serum or plasma albumin kamaljit urement (mass/volume)Ordered By: Dr. Avitia on 10-29-2022 Albumin [Mass/Vol] 4.1 g/dL 3.2-5.0 [facility] Serum or plasma albumin/glob ulin mass ratioOrdered By: Dr. Avitia on 10-29-2022 Albumin/Globulin [Mass ratio] 1.1 {ratio} 0.9-2.4 [facility] Serum or plasma calcium kamaljit urement (mass/volume)Ordered By: Dr. Avitia on 10-29-2022 Calcium [Mass/Vol] 9.7 mg/dL 8.5-10.1 [facility] Serum or plasma cholesterol in HDL measurement (mass/volume)Ordered By: Dr. Avitia on 10-29-2022 Cholesterol in HDL [Mass/Vol] 46 mg/dL >40 [facility] Comment on above: The drugs N-Acetylcy steine and Metamizole may falsely depress this assay. Reference Range HDL <40 mg/dL Low HDL Cholesterol HDL >or= 60 mg/dL High HDL Cholesterol Serum or plasma cholesterol in VLDL measurement (mass/volume)Ordered By: Dr. Avitia on 10-29-2022 Cholesterol in VLDL [Mass/Vol] 27 mg/dL 5-40 [facility] Serum or plasma creatinine m easurement (mass/volume)Ordered By: Dr. Avitia on 10-29-2022 Creatinine [Mass/Vol] 0.78 mg/dL 0.70-1.30 [facility] Comment on above: The validity of the calculated GFR & GFRAA in patients over 70 years has not been determined. Clinical correlation is essential. Serum or plasma low density lipoprotein (LDL) cholesterol measurement (mass/volume)Ordered By: Dr. Avitia on 10-29-2022 Cholesterol in LDL [Mass/Vol] 66 mg/dL 0-130 [facility] Serum or plasma urea nitroge n measurement (mass/volume)Ordered By: Dr. Avitia on 10-29-2022 Urea nitrogen [Mass/Vol] 15 mg/dL 7-18 [facility] Thin prep Papanicolaou smear with manual screeningOrdered By: Dr. Avitia on 10-29-2022 Thin prep Papanicolaou smear with manual screening 17 U/L 15-37 [facility] Thin prep Papanicolaou smear with manual screening 9 5-15 [facility] Thin prep Papanicolaou smear with manual screening 9.8 mg/L NO RANGE EST. [facility] Urine creatinine measurement (mass/volume)Ordered By: Dr. Avitia on 10-29-2022 Creatinine (U) [Mass/Vol] 59.90 mg/dL NO RANGE EST. [facility] Whole blood hemoglobin A1c/t otal hemoglobin ratio (mass fraction)Ordered By: Dr. Avitia on 10-29-2022 HbA1c (Bld) [Mass fraction] 5.7 % 3.8-5.6 [facility] Comment on above: Normal < 5.7 % Predi abetic 5.7 - 6.4 % Diabetic >or= 6.5 % Please note range changes. Absolute lymphocyte counton 06-22-2022 Lymphocytes Auto (Unsp spec) [#/Vol] 3.08 10*3/uL 0.83-4.51 [facility] Work Phone: Basophil percentageon 2021 Basophil percentage 0 SEEN /hpf 0-5 [facility] Work Phone: Basophils/100 WBC (Bld) 0.5 % 0-1 [facility] Work Phone: Bilirubin [Mass/Vol] 0.60 mg/dL 0.20-1.00 [facility] Work Phone: Comment on above: For patients on eltr ombopag therapy, use of Dimension [place] TBIL is not recommended. Chloride [Moles/Vol] 104 mmol/L 98-107 [facility] Work Phone: Cholesterol [Mass/Vol] 115 mg/dL <200 [facility] Work Phone: Comment on above: <200 mg/dL Desirable 200-240 mg/dL Borderline >240 mg/dL High Risk Eosinophils/100 WBC (Bld) 1.7 % 0-5 [facility] Work Phone: Glucose [Mass/Vol] 104 mg/dL 74-106 [facility] Work Phone: Comment on above: Fasting Glucose resu lt from 100 to 125 mg/dL suggests IMPAIRED HOMEOSTASIS per A.D.A. criteria. Neutrophils (Bld) [#/Vol] 4.9 10*3/uL 2.0-7.7 [facility] Work Phone: Neutrophils/100 WBC (Bld) 56.5 % 47-70 [facility] Work Phone: Potassium [Moles/Vol] 4.3 mmol/L 3.5-5.1 [facility] Work Phone: Protein [Mass/Vol] 7.6 g/dL 6.4-8.2 [facility] Work Phone: Sodium [Moles/Vol] 137 mmol/L 136-145 [facility] Work Phone: Triglyceride [Mass/Vol] 143 mg/dL <199 [facility] Work Phone: Comment on above: The drugs N-Acetylcy steine and Metamizole may falsely depress this assay.Serum Triglycerides Reference Interval Normal <150 mg/dL Borderline high 150 - 199 mg/dL High 200 - 499 mg/dL Very High > or = 500 mg/dL WBC (Bld) [#/Vol] 8.6 10*3/uL 4.4-11.0 [facility] Work Phone: Bilirubin Test strip Ql (U)o n 06-22-2022 Bilirubin Ql (U) Negative Negative [facility] Work Phone: Blood erythrocytes count (nu mber/volume)on 06-22-2022 RBC (Bld) [#/Vol] 4.26 10*6/uL 4.6-6.2 [facility] Work Phone: Blood hemoglobin measurement (mass/volume)on 06-22-2022 Hemoglobin (Bld) [Mass/Vol] 14.6 g/dL 13.0-16.5 [facility] Work Phone: Blood lymphocytes/100 leukoc yteson 06-22-2022 Lymphocytes/100 WBC (Bld) 35.9 % 19-41 [facility] Work Phone: Blood monocytes/100 leukocyt eson 06-22-2022 Monocytes/100 WBC (Bld) 5.2 % 0-10 [facility] Work Phone: Blood platelet mean volumeon 06-22-2022 Platelet mean volume (Bld) [Entitic vol] 10.3 fL 6.2-12.0 [facility] Work Phone: Determination of erythrocyte mean corpuscular volume (MCV)on 06-22-2022 MCV (RBC) [Entitic vol] 98.6 fL 80-94 [facility] Work Phone: Hematocrit Auto (Bld) [Volum e fraction]on 06-22-2022 Hematocrit (Bld) [Volume fraction] 42.0 % 40-54 [facility] Work Phone: Ketones Test strip Ql (U)on 06-22-2022 Ketones Ql (U) Negative Negative [facility] Work Phone: Laboratory - Chemistry and C hemistry - challengeon 06-22-2022 ALP [Catalytic activity/Vol] 44 U/L 45-117 [facility] Work Phone: ALT [Catalytic activity/Vol] 22 U/L 16-61 [facility] Work Phone: CO2 [Moles/Vol] 28.0 mmol/L 21.0-32.0 [facility] Work Phone: Globulin (S) [Mass/Vol] 3.4 g/dL 2.2-4.2 [facility] Work Phone: Urea nitrogen/Creatinine [Mass ratio] 22.7 mg/mg 10-20 [facility] Work Phone: Laboratory - Hematology and Cell countson 06-22-2022 Erythrocyte distribution width (RBC) [Entitic vol] 49.1 fL 35.1-43.9 [facility] Work Phone: Erythrocyte distribution width (RBC) [Ratio] 13.4 % 11.6-14.6 [facility] Work Phone: Immature granulocytes/100 WBC (Bld) 0.200 % 0.0-0.9 [facility] Work Phone: Comment on above: IG% - Immature Granu locytes (promyelocytes, myelocytes and metamyelocytes) > 1% indicates that a LEFT SHIFT is Present. MCH (RBC) [Entitic mass] 34.3 pg 27.0-32.0 [facility] Work Phone: Nucleated RBC/100 WBC (Bld) [Ratio] 0 % 0-5 [facility] Work Phone: MCHC Auto (RBC) [Mass/Vol]on 06-22-2022 MCHC (RBC) [Mass/Vol] 34.8 g/dL 32-36 [facility] Work Phone: Mucus LM Ql (Urine sed)on Mucus Ql (Urine sed) 0 SEEN /hpf [facility] Work Phone: Nitrite Test strip Ql (U)on 06-22-2022 Nitrite Ql (U) Negative Negative [facility] Work Phone: No Panel Informationon 06-22 Estimated GFR (MDRD) Amer 143 mL/min >60 [facility] [facility] Work Phone: Comment on above: GFR Calc Estimated GFR (MDRD) Non-Af Amer 118 mL/min >60 [facility] Work Phone: Comment on above: Non- GFR Calc Urine Microalbumin/Creatinine Ratio TNP [facility] Work Phone: Comment on above: Test not performed Vitamin D 25-Hydroxy 51.3 ng/mL [facility] Work Phone: Comment on above: Vitamin D 25(OH) Sta tus Range Deficiency <20 ng/mL (50nmol/L) Insufficiency 20 - 30 ng/mL (50 - 75 nmol/L) Sufficiency 30 - 100 ng/mL (75 - 250 nmol/L) Toxicity >100 ng/mL (>250 nmol/L) Platelets bldon 06-22-2022 Platelets (Bld) [#/Vol] 194 10*3/uL 150-450 [facility] Work Phone: Protein Test strip Ql (U)on 06-22-2022 Protein Ql (U) Negative Negative [facility] Work Phone: Serum or plasma albumin kamaljit urement (mass/volume)on 06-22-2022 Albumin [Mass/Vol] 4.2 g/dL 3.2-5.0 [facility] Work Phone: Serum or plasma albumin/glob ulin mass ratioon 06-22-2022 Albumin/Globulin [Mass ratio] 1.2 {ratio} 0.9-2.4 [facility] Work Phone: Serum or plasma calcium kamaljit urement (mass/volume)on 06-22-2022 Calcium [Mass/Vol] 9.6 mg/dL 8.5-10.1 [facility] Work Phone: Serum or plasma cholesterol in HDL measurement (mass/volume)on 06-22-2022 Cholesterol in HDL [Mass/Vol] 34 mg/dL >40 [facility] Work Phone: Comment on above: The drugs N-Acetylcy steine and Metamizole may falsely depress this assay. Reference Range HDL <40 mg/dL Low HDL Cholesterol HDL >or= 60 mg/dL High HDL Cholesterol Serum or plasma cholesterol in VLDL measurement (mass/volume)on 06-22-2022 Cholesterol in VLDL [Mass/Vol] 29 mg/dL 5-40 [facility] Work Phone: Serum or plasma creatinine m easurement (mass/volume)on 06-22-2022 Creatinine [Mass/Vol] 0.71 mg/dL 0.70-1.30 [facility] Work Phone: Comment on above: The validity of the calculated GFR & GFRAA in patients over 70 years has not been determined. Clinical correlation is essential. Serum or plasma low density lipoprotein (LDL) cholesterol measurement (mass/volume)on 06-22-2022 Cholesterol in LDL [Mass/Vol] 52 mg/dL 0-130 [facility] Work Phone: Serum or plasma urea nitroge n measurement (mass/volume)on 06-22-2022 Urea nitrogen [Mass/Vol] 16 mg/dL 7-18 [facility] Work Phone: Squamous epithelial cells de tection in urine sediment by light microscopyon 06-22-2022 Epithelial cells.squamous LM Ql (Urine sed) 0 SEEN /hpf 0-5 [facility] Work Phone: Thin prep Papanicolaou smear with manual screeningon 06-22-2022 Thin prep Papanicolaou smear with manual screening 14 U/L 15-37 [facility] Work Phone: Thin prep Papanicolaou smear with manual screening 5 5-15 [facility] Work Phone: Thin prep Papanicolaou smear with manual screening < 5.0 mg/L NO RANGE EST. [facility] Work Phone: Urine blood detectionon 05-26 RBC Ql (U) 50 /ul Negative [facility] Work Phone: RBC Ql (U) 0 SEEN /hpf 0-5 [facility] Work Phone: Urine clarityon 06-22-2022 Clarity (U) Clear Clear [facility] Work Phone: Urine color determinationon 06-22-2022 Color (U) Straw Yellow [facility] Work Phone: Urine creatinine measurement (mass/volume)on 06-22-2022 Creatinine (U) [Mass/Vol] 60.40 mg/dL NO RANGE EST. [facility] Work Phone: Urine glucose detectionon 08 -30-2022 Glucose Ql (U) Normal mg/dl Normal [facility] Work Phone: Urine leukocyte esterase det ection by dipstickon 06-22-2022 Leukocyte esterase Test strip Ql (U) Negative Negative [facility] Work Phone: Urine pHon 06-22-2022 pH (U) 7.0 [pH] 5.0 - 8.0 [facility] Work Phone: Urine sediment bacteria coun t by microscopy (number/high power field)on 06-22-2022 Bacteria LM.HPF (Urine sed) [#/Area] 0 /[HPF] None Seen [facility] Work Phone: Urine specific gravity measu rementon 06-22-2022 Specific gravity (U) [Rel density] 1.010 1.002-1.030 [facility] Work Phone: Urobilinogen Auto test strip Ql (U)on 06-22-2022 Urobilinogen Ql (U) Normal mg/dl Normal [facility] Work Phone: Whole blood hemoglobin A1c/t otal hemoglobin ratio (mass fraction)on 06-22-2022 HbA1c (Bld) [Mass fraction] 5.7 % 3.8-5.6 [facility] Work Phone: Comment on above: Normal < 5.7 % Predi abetic 5.7 - 6.4 % Diabetic >or= 6.5 % Please note range changes. Absolute lymphocyte counton 02-23-2022 Lymphocytes Auto (Unsp spec) [#/Vol] 2.37 10*3/uL 0.83-4.51 [facility] Work Phone: Basophil percentageon 2021 Basophils/100 WBC (Bld) 0.5 % 0-1 [facility] Work Phone: Bilirubin [Mass/Vol] 0.50 mg/dL 0.20-1.00 [facility] Work Phone: Comment on above: For patients on eltr ombopag therapy, use of Dimension [place] TBIL is not recommended. Chloride [Moles/Vol] 102 mmol/L 98-107 [facility] Work Phone: Cholesterol [Mass/Vol] 114 mg/dL <200 [facility] Work Phone: [phone] Comment on above: <200 mg/dL Desirable 200-240 mg/dL Borderline >240 mg/dL High Risk Eosinophils/100 WBC (Bld) 1.4 % 0-5 [facility] Work Phone: [phone] Glucose [Mass/Vol] 110 mg/dL 74-106 [facility] Work Phone: [phone] Comment on above: Fasting Glucose resu lt from 100 to 125 mg/dL suggests IMPAIRED HOMEOSTASIS per A.D.A. criteria. Neutrophils (Bld) [#/Vol] 5.2 10*3/uL 2.0-7.7 [facility] Work Phone: Neutrophils/100 WBC (Bld) 62.6 % 47-70 [facility] Work Phone: [phone] Potassium [Moles/Vol] 4.1 mmol/L 3.5-5.1 [facility]: Protein [Mass/Vol] 7.6 g/dL 6.4-8.2 [facility] Work Phone: [phone] Sodium [Moles/Vol] 137 mmol/L 136-145 [facility] Work Phone: Triglyceride [Mass/Vol] 41 mg/dL [facility] Work Phone: [phone] Comment on above: The drugs N-Acetylcy steine and Metamizole may falsely depress this assay.Serum Triglycerides Reference Interval Normal <150 mg/dL Borderline high 150 - 199 mg/dL High 200 - 499 mg/dL Very High > or = 500 mg/dL WBC (Bld) [#/Vol] 8.3 10*3/uL 4.4-11.0 [facility] Work Phone: Blood erythrocytes count (nu mber/volume)on 02-23-2022 RBC (Bld) [#/Vol] 4.16 10*6/uL 4.6-6.2 [facility]: Blood hemoglobin measurement (mass/volume)on 02-23-2022 Hemoglobin (Bld) [Mass/Vol] 13.9 g/dL 13.0-16.5 [facility] Work Phone: Blood lymphocytes/100 leukoc yteson 02-23-2022 Lymphocytes/100 WBC (Bld) 28.6 % 19-41 [facility] Work Phone: Blood monocytes/100 leukocyt eson 02-23-2022 Monocytes/100 WBC (Bld) 6.7 % 0-10 [facility] Work Phone: Blood platelet mean volumeon 02-23-2022 Platelet mean volume (Bld) [Entitic vol] 10.6 fL 6.2-12.0 [facility] Work Phone: Determination of erythrocyte mean corpuscular volume (MCV)on 02-23-2022 MCV (RBC) [Entitic vol] 99.0 fL 80-94 [facility] Work Phone: Hematocrit Auto (Bld) [Volum e fraction]on 02-23-2022 Hematocrit (Bld) [Volume fraction] 41.2 % 40-54 [facility] Work Phone: Laboratory - Chemistry and C hemistry - challengeon 02-23-2022 ALP [Catalytic activity/Vol] 52 U/L 45-117 [facility] Work Phone: ALT [Catalytic activity/Vol] 26 U/L 16-61 [facility] Work Phone: CO2 [Moles/Vol] 27.0 mmol/L 21.0-32.0 [facility] Work Phone: Globulin (S) [Mass/Vol] 3.7 g/dL 2.2-4.2 [facility] Work Phone: Urea nitrogen/Creatinine [Mass ratio] 18.8 mg/mg 10-20 [facility] Work Phone: Laboratory - Hematology and Cell countson 02-23-2022 Erythrocyte distribution width (RBC) [Entitic vol] 49.3 fL 35.1-43.9 [facility] Work Phone: Erythrocyte distribution width (RBC) [Ratio] 13.5 % 11.6-14.6 [facility] Work Phone: Immature granulocytes/100 WBC (Bld) 0.200 % 0.0-0.9 [facility] Work Phone: Comment on above: IG% - Immature Granu locytes (promyelocytes, myelocytes and metamyelocytes) > 1% indicates that a LEFT SHIFT is Present. MCH (RBC) [Entitic mass] 33.4 pg 27.0-32.0 [facility] Work Phone: Nucleated RBC/100 WBC (Bld) [Ratio] 0 % 0-5 [facility] Work Phone: MCHC Auto (RBC) [Mass/Vol]on 02-23-2022 MCHC (RBC) [Mass/Vol] 33.7 g/dL 32-36 [facility] Work Phone: No Panel Informationon 02-23 Estimated GFR (MDRD) Amer 147 mL/min >60 [facility] Work Phone: Comment on above: GFR Calc Estimated GFR (MDRD) Non-Af Amer 121 mL/min >60 [facility] Work Phone: Comment on above: Non- GFR Calc Vitamin D 25-Hydroxy 56.2 ng/mL [facility] Work Phone: Comment on above: Vitamin D 25(OH) Sta tus Range Deficiency <20 ng/mL (50nmol/L) Insufficiency 20 - 30 ng/mL (50 - 75 nmol/L) Sufficiency 30 - 100 ng/mL (75 - 250 nmol/L) Toxicity >100 ng/mL (>250 nmol/L) Platelets bldon 02-23-2022 Platelets (Bld) [#/Vol] 202 10*3/uL 150-450 [facility] Work Phone: Serum or plasma albumin kamaljit urement (mass/volume)on 02-23-2022 Albumin [Mass/Vol] 3.9 g/dL 3.2-5.0 [facility] Work Phone: Serum or plasma albumin/glob ulin mass ratioon 02-23-2022 Albumin/Globulin [Mass ratio] 1.1 {ratio} 0.9-2.4 [facility] Work Phone: Serum or plasma calcium kamaljit urement (mass/volume)on 02-23-2022 Calcium [Mass/Vol] 9.2 mg/dL 8.5-10.1 [facility] Work Phone: Serum or plasma cholesterol in HDL measurement (mass/volume)on 02-23-2022 Cholesterol in HDL [Mass/Vol] 41 mg/dL [facility] Work Phone: Comment on above: The drugs N-Acetylcy steine and Metamizole may falsely depress this assay. Reference Range HDL <40 mg/dL Low HDL Cholesterol HDL >or= 60 mg/dL High HDL Cholesterol Serum or plasma cholesterol in VLDL measurement (mass/volume)on 02-23-2022 Cholesterol in VLDL [Mass/Vol] 8 mg/dL 5-40 [facility] Work Phone: Serum or plasma creatinine m easurement (mass/volume)on 02-23-2022 Creatinine [Mass/Vol] 0.69 mg/dL 0.70-1.30 [facility] Work Phone: Comment on above: The validity of the calculated GFR & GFRAA in patients over 70 years has not been determined. Clinical correlation is essential. Serum or plasma low density lipoprotein (LDL) cholesterol measurement (mass/volume)on 02-23-2022 Cholesterol in LDL [Mass/Vol] 65 mg/dL 0-130 [facility] Work Phone: Serum or plasma urea nitroge n measurement (mass/volume)on 02-23-2022 Urea nitrogen [Mass/Vol] 13 mg/dL 7-18 [facility] Work Phone: Thin prep Papanicolaou smear with manual screeningon 02-23-2022 Thin prep Papanicolaou smear with manual screening 17 U/L 15-37 [facility] Work Phone: Thin prep Papanicolaou smear with manual screening 8 5-15 [facility] Work Phone: Whole blood hemoglobin A1c/t otal hemoglobin ratio (mass fraction)on 02-23-2022 HbA1c (Bld) [Mass fraction] 5.6 % 3.8-5.6 [facility] Work Phone: Comment on above: Normal < 5.7 % Predi abetic 5.7 - 6.4 % Diabetic >or= 6.5 % Please note range changes. Absolute lymphocyte counton 11-24-2021 Lymphocytes Auto (Unsp spec) [#/Vol] 2.65 10*3/uL 0.83-4.51 [facility] Work Phone: Basophil percentageon 2021 Basophil percentage 0 SEEN /hpf [facility] Work Phone: Basophils/100 WBC (Bld) 0.4 % 0-1 [facility] Work Phone: Bilirubin [Mass/Vol] 0.30 mg/dL 0.20-1.00 [facility] Work Phone: Comment on above: For patients on eltr ombopag therapy, use of Dimension [place] TBIL is not recommended. Chloride [Moles/Vol] 102 mmol/L 98-107 [facility] Work Phone: Cholesterol [Mass/Vol] 105 mg/dL <200 [facility] Work Phone: Comment on above: <200 mg/dL Desirable 200-240 mg/dL Borderline >240 mg/dL High Risk Eosinophils/100 WBC (Bld) 1.6 % 0-5 [facility] Work Phone: Glucose [Mass/Vol] 99 mg/dL 74-106 [facility] Work Phone: Neutrophils (Bld) [#/Vol] 3.8 10*3/uL 2.0-7.7 [facility] Work Phone: [phone] Neutrophils/100 WBC (Bld) 53.9 % 47-70 [facility] Work Phone: Potassium [Moles/Vol] 3.6 mmol/L 3.5-5.1 [facility] Work Phone: Protein [Mass/Vol] 7.9 g/dL 6.4-8.2 [facility] Work Phone: Sodium [Moles/Vol] 134 mmol/L 136-145 [facility] Work Phone: Triglyceride [Mass/Vol] 148 mg/dL [facility] Work Phone: Comment on above: The drugs N-Acetylcy steine and Metamizole may falsely depress this assay.Serum Triglycerides Reference Interval Normal <150 mg/dL Borderline high 150 - 199 mg/dL High 200 - 499 mg/dL Very High > or = 500 mg/dL WBC (Bld) [#/Vol] 7.0 10*3/uL 4.4-11.0 [facility] Work Phone: Bilirubin Test strip Ql (U)o n 11-24-2021 Bilirubin Ql (U) Negative Negative [facility] Work Phone: Blood erythrocytes count (nu mber/volume)on 11-24-2021 RBC (Bld) [#/Vol] 4.30 10*6/uL 4.6-6.2 [facility] Work Phone: Blood hemoglobin measurement (mass/volume)on 11-24-2021 Hemoglobin (Bld) [Mass/Vol] 14.2 g/dL 13.0-16.5 [facility] Work Phone: Blood lymphocytes/100 leukoc yteson 11-24-2021 Lymphocytes/100 WBC (Bld) 38.1 % 19-41 [facility] Work Phone: Blood monocytes/100 leukocyt eson 11-24-2021 Monocytes/100 WBC (Bld) 5.7 % 0-10 [facility] Work Phone: Blood platelet mean volumeon 11-24-2021 Platelet mean volume (Bld) [Entitic vol] 10.8 fL 6.2-12.0 [facility] Work Phone: Determination of erythrocyte mean corpuscular volume (MCV)on 11-24-2021 MCV (RBC) [Entitic vol] 98.1 fL 80-94 [facility] Work Phone: Hematocrit Auto (Bld) [Volum e fraction]on 11-24-2021 Hematocrit (Bld) [Volume fraction] 42.2 % 40-54 [facility] Work Phone: Ketones Test strip Ql (U)on 11-24-2021 Ketones Ql (U) Negative Negative [facility] Work Phone: Laboratory - Chemistry and C hemistry - challengeon 11-24-2021 ALP [Catalytic activity/Vol] 55 U/L 45-117 [facility] Work Phone: ALT [Catalytic activity/Vol] 32 U/L 16-61 [facility] Work Phone: CO2 [Moles/Vol] 24.0 mmol/L 21.0-32.0 [facility] Work Phone: Globulin (S) [Mass/Vol] 3.9 g/dL 2.2-4.2 [facility] Work Phone: Urea nitrogen/Creatinine [Mass ratio] 19.8 mg/mg 10-20 [facility] Work Phone: Laboratory - Hematology and Cell countson 11-24-2021 Erythrocyte distribution width (RBC) [Entitic vol] 49.1 fL 35.1-43.9 [facility] Work Phone: Erythrocyte distribution width (RBC) [Ratio] 13.5 % 11.6-14.6 [facility] Work Phone: Immature granulocytes/100 WBC (Bld) 0.300 % 0.0-0.9 [facility] Work Phone: Comment on above: IG% - Immature Granu locytes (promyelocytes, myelocytes and metamyelocytes) > 1% indicates that a LEFT SHIFT is Present. MCH (RBC) [Entitic mass] 33.0 pg 27.0-32.0 [facility] Work Phone: Nucleated RBC/100 WBC (Bld) [Ratio] 0 % 0-5 [facility] Work Phone: MCHC Auto (RBC) [Mass/Vol]on 11-24-2021 MCHC (RBC) [Mass/Vol] 33.6 g/dL 32-36 [facility] Work Phone: Mucus LM Ql (Urine sed)on Mucus Ql (Urine sed) 0 SEEN /hpf [facility] Work Phone: Nitrite Test strip Ql (U)on 11-24-2021 Nitrite Ql (U) Negative Negative [facility] Work Phone: No Panel Informationon 11-24 Estimated GFR (MDRD) Amer 143 mL/min >60 [facility] Work Phone: Comment on above: GFR Calc Estimated GFR (MDRD) Non-Af Amer 119 mL/min >60 [facility] Work Phone: Comment on above: Non- GFR Calc Thyroid Stimulating Hormone (TSH) 2.12 uIU/mL 0.358-3.74 [facility] Work Phone: Urine Microalbumin/Creatinine Ratio 6.2 mg/g CRE <30 [facility] Work Phone: Vitamin D 25-Hydroxy 57.3 ng/mL [facility] Work Phone: Comment on above: Vitamin D 25(OH) Sta tus Range Deficiency <20 ng/mL (50nmol/L) Insufficiency 20 - 30 ng/mL (50 - 75 nmol/L) Sufficiency 30 - 100 ng/mL (75 - 250 nmol/L) Toxicity >100 ng/mL (>250 nmol/L) Platelets bldon 11-24-2021 Platelets (Bld) [#/Vol] 230 10*3/uL 150-450 [facility] Work Phone: Protein Test strip Ql (U)on 11-24-2021 Protein Ql (U) Negative Negative [facility] Work Phone: Serum or plasma albumin kamaljit urement (mass/volume)on 11-24-2021 Albumin [Mass/Vol] 4.0 g/dL 3.2-5.0 [facility] Work Phone: Serum or plasma albumin/glob ulin mass ratioon 11-24-2021 Albumin/Globulin [Mass ratio] 1.0 {ratio} 0.9-2.4 [facility] Work Phone: Serum or plasma calcium kamaljit urement (mass/volume)on 11-24-2021 Calcium [Mass/Vol] 9.4 mg/dL 8.5-10.1 [facility] Work Phone: Serum or plasma cholesterol in HDL measurement (mass/volume)on 11-24-2021 Cholesterol in HDL [Mass/Vol] 40 mg/dL [facility] Work Phone: Comment on above: The drugs N-Acetylcy steine and Metamizole may falsely depress this assay. Reference Range HDL <40 mg/dL Low HDL Cholesterol HDL >or= 60 mg/dL High HDL Cholesterol Serum or plasma cholesterol in VLDL measurement (mass/volume)on 11-24-2021 Cholesterol in VLDL [Mass/Vol] 30 mg/dL 5-40 [facility] Work Phone: Serum or plasma creatinine m easurement (mass/volume)on 11-24-2021 Creatinine [Mass/Vol] 0.71 mg/dL 0.70-1.30 [facility] Work Phone: Comment on above: The validity of the calculated GFR & GFRAA in patients over 70 years has not been determined. Clinical correlation is essential. Serum or plasma low density lipoprotein (LDL) cholesterol measurement (mass/volume)on 11-24-2021 Cholesterol in LDL [Mass/Vol] 35 mg/dL 0-130 [facility] Work Phone: Serum or plasma urea nitroge n measurement (mass/volume)on 11-24-2021 Urea nitrogen [Mass/Vol] 14 mg/dL 7-18 [facility] Work Phone: Squamous epithelial cells de tection in urine sediment by light microscopyon 11-24-2021 Epithelial cells.squamous LM Ql (Urine sed) 0 SEEN /hpf [facility] Work Phone: Thin prep Papanicolaou smear with manual screeningon 11-24-2021 Thin prep Papanicolaou smear with manual screening 19 U/L 15-37 [facility] Work Phone: Thin prep Papanicolaou smear with manual screening 8 5-15 [facility] Work Phone: Thin prep Papanicolaou smear with manual screening 9.3 mg/L NO RANGE EST. [facility] Work Phone: Urine blood detectionon 02- RBC Ql (U) 10 /ul Negative [facility] Work Phone: RBC Ql (U) 0 SEEN /hpf [facility] Work Phone: Urine clarityon 11-24-2021 Clarity (U) Clear Clear [facility] Work Phone: Urine color determinationon 11-24-2021 Color (U) Yellow Yellow [facility] Work Phone: Urine creatinine measurement (mass/volume)on 11-24-2021 Creatinine (U) [Mass/Vol] 151.00 mg/dL NO RANGE EST. [facility] Work Phone: Urine glucose detectionon Glucose Ql (U) Normal mg/dl Normal [facility] Work Phone: Urine leukocyte esterase det ection by dipstickon 11-24-2021 Leukocyte esterase Test strip Ql (U) Negative Negative [facility] Work Phone: Urine pHon 11-24-2021 pH (U) 6.0 [pH] [facility] Work Phone: Urine sediment bacteria coun t by microscopy (number/high power field)on 11-24-2021 Bacteria LM.HPF (Urine sed) [#/Area] 0 /[HPF] None Seen [facility] Work Phone: Urine specific gravity measu rementon 11-24-2021 Specific gravity (U) [Rel density] 1.020 [facility] Work Phone: Urobilinogen Auto test strip Ql (U)on 11-24-2021 Urobilinogen Ql (U) Normal mg/dl Normal [facility] Work Phone: Whole blood hemoglobin A1c/t otal hemoglobin ratio (mass fraction)on 11-24-2021 HbA1c (Bld) [Mass fraction] 5.5 % 3.8-5.6 [facility] Work Phone: Comment on above: Normal < 5.7 % Predi abetic 5.7 - 6.4 % Diabetic >or= 6.5 % Please note range changes. Encounters Encounter Date Encounter Type Care Provider Facility Start: 07-09-2025 End: 07-09-[address] Pito Avitia MD Work Phone: -[facility] Start: 07-09-2025 End: 07-09-[address] Pito Avitia MD -[facility] Work Phone: Start: 07-09-2025 End: 07-09-2025 ambulatory Pito Avitia Facility:[facility] Start: 06-27-2025 End: 06-27-[address] Pito Avitia MD Work Phone: -Cat Scan [facility] Start: 06-27-2025 End: 06-27-[address] Pito Avitia MD -Cat Scan [facility] Work Phone: Start: 06-27-2025 End: 06-27-2025 ambulatory Pito Avitia Facility:[facility] Start: 06-07-2025 End: 06-07-[address] Pito Avitia MD Work Phone: -[facility] Start: 06-07-2025 End: 06-07-[address] Pito Avitia MD -[facility] Work Phone: Start: 06-07-2025 End: 06-07-2025 ambulatory Pito Avitia Facility:[facility] Start: 02-12-2025 End: 02-12-[address] Pito Avitia MD Work Phone: [facility] Work Phone: Start: 02-12-2025 End: 02-12-[address] Pito Avitia MD -Cat Scan, [facility] Work Phone: Start: 02-12-2025 End: 02-12-2025 ambulatory Pito Avitia Facility:[facility] Start: 01-23-2025 End: 01-23-[address] Pito Avitia MD Work Phone: [facility] Work Phone: Start: 01-23-2025 End: 01-23-[address] Piot Avitia MD -[facility] Work Phone: Start: 01-23-2025 End: 01-23-2025 ambulatory Pito Avitia Facility:[facility] Start: 09-25-2024 End: 09-25-2024 ambulatory Pito Avitia Facility:[facility] Start: 02-09-2024 End: 02-09-2024 ambulatory [facility] Work Phone: Start: 02-09-2024 End: 02-09-2024 Patient encounter procedure [facility]-Cat Scan, [facility] Work Phone: Start: 01-31-2024 End: 01-31-2024 ambulatory [facility] Work Phone: Start: 01-31-2024 End: 01-31-2024 Patient encounter procedure [facility]-Laboratory, [place] Work Phone: Start: 12-28-2023 End: 12-28-2023 ambulatory [facility] Work Phone: Start: 12-28-2023 End: 12-28-2023 Patient encounter procedure [facility]-Outpatient Bone Densitometry Work Phone: Start: 06-14-2023 End: 06-14-2023 ambulatory [facility] Work Phone: Start: 06-14-2023 End: 06-14-2023 Patient encounter procedure [facility]-Pulmonary Services/Neurology Work Phone: Start: 05-24-2023 End: 05-24-2023 Patient encounter procedure [facility]-Cat Scan, [facility] Work Phone: Start: 05-20-2023 End: 05-20-2023 ambulatory [facility] Work Phone: Start: 05-20-2023 End: 05-20-2023 Patient encounter procedure [facility]-Laboratory, [place] Work Phone: Start: 02-07-2023 End: 02-07-2023 ambulatory [facility] Work Phone: Start: 02-07-2023 End: 02-07-2023 Patient encounter procedure [facility]-Cat Scan, [facility] Start: 02-01-2023 End: 02-01-2023 ambulatory [facility] Work Phone: Start: 02-01-2023 End: 02-01-2023 Patient encounter procedure [facility]-Radiology, [place] Start: 01-20-2023 End: 01-20-2023 ambulatory [facility] Work Phone: Start: 01-20-2023 End: 01-20-2023 Patient encounter procedure [facility] Start: 10-29-2022 End: 10-29-2022 ambulatory [facility] Work Phone: Start: 10-29-2022 End: 10-29-2022 Patient encounter procedure [facility] Start: 06-22-2022 End: 06-22-2022 ambulatory [facility] Work Phone: Start: 06-22-2022 End: 06-22-2022 Patient encounter procedure [facility] Start: 02-23-2022 End: 02-23-2022 Patient encounter procedure [facility] Start: 11-24-2021 End: 11-24-2021 Patient encounter procedure [facility] Start: 12-29-2020 ambulatory MD FAUSTINO GACRIA Fa cility:[facility] Procedures Date Procedure Procedure Detail Performing Clinician Start: 07-09-2025 Radiologic exam ches t [address] Pito Avitia MD Work Phone: Start: 06-27-2025 CT of abdomen with contrast Dr. Pito Avitia MD Work Phone: Start: 06-07-2025 Urnls dip stick/tabl et reagent auto microscopy Dr. Pito Avitia MD Work Phone: Start: 02-12-[address] Pito [...] energy X-ray absorptiometry Dexa Bone Density Study [facility] Payers Date Payer Category Payer Private Health Insurance [id number] 2024 Self-pay [id number] 2020 Private Health Insurance 1955 Unknown [id number] Private Health Insurance [id number] Unknown [id number] 2.16.8 [id number] Unknown [id number] 2.16.8 [id number] Unknown [id number] 2.16.8 [id number] Unknown [id number] 2.16.8 [id number] Unknown [id number] 2.16.8 [id number] Unknown [id number] 2.16.8 [id number] Social History Date Type Detail Facility [facility] Work Phone: Start: 1955 Sex Assigned At Male [facility] Work Phone: Start: 01-29-2025 End: 02-15-2025 Sex Male (finding) [facility] Sex Male [facility] Radiology Diagnostic study note 07-09-2025 Note Date & Type Note Facility 07-09-2025 Radiology Diagnostic study note [facility] Imaging Services [address] [place] [address] Chest PA and Lateral MR#: [id number] Acct: [id number] Name: FOSTER WORTHINGTON Rep #: [id number] : 1955 M 70 From: Gabe Thomason MD PCP: Dr. Pito Avitia MD Status: MYLENE Castillo CLI Study:Chest PA and Lateral Date of Exam: 07/09/25 Exam# [id number] Ordering Dr: Pito Avitia MD PROCEDURE: CHEST PA AND LATERAL 07/09/2025 REASON FOR EXAM: COPD FLAIR TECHNIQUE: Procedure Code: RADCXR Modality: DX Procedure: CHEST PA AND LATERAL COMPARISON: 02/12/2025 CT. FINDINGS: The heart is normal in size. The lungs are clear. No acute osseous abnormalities. Midthoracic vertebroplasty. RAD/Chest PA and Lateral IMPRESSION: NO ACUTE FINDINGS. Reading Location: [id number] CC: Dr. Pito Avitia MD ~ [employer] Supervisor: Signed [facility] Radiology Diagnostic study note 06-29-2025 Note Date & Type Note Facility 06-29-2025 Radiology Diagnostic study note [facility] Imaging Services [address] [place] [address] [id number] Abdomen WITH IV Contrast MR#: [id number] Acct: [id number] Name: FOSTER WORTHINGTON Rep #: [id number] : 1955 M 70 From: Ramy Huff MD PCP: Dr. Pito Avitia MD Status: MYLENE Castillo CLI Study:Abdomen WITH IV Contrast Date of Exam: 06/27/25 Exam# [id number] Ordering Dr: Pito Avitia MD PROCEDURE: ABDOMEN WITH IV CONTRAST 06/27/2025 REASON FOR EXAM: ADRENAL MASS TECHNIQUE: Procedure Code: CTABDW Modality: CT Procedure: ABDOMEN WITH IV CONTRAST Multiplanar Sagittal and Coronal images were obtained. One or more dose reduction techniques were used (e.g., Automated exposure control, adjustment of the mA and/or kV according to patient size, use of iterative reconstruction technique. CONTRAST: Isovue 370 VOLUME: 100 mL RADIATION DOSE SUMMARY: CTDlvol: 25 mGy DLP: 479 mGycm COMPARISON: January 2024. FINDINGS: Lung bases: Negative. ABDOMEN Liver: Mild fatty infiltration of the liver. Biliary system: Negative. Negative for intrahepatic or extrahepatic ductal dilatation. Gallbladder: Negative. Negative for cholecystitis. Spleen: Negative. Pancreas: Negative. Adrenals: Moderate bilateral adrenal gland fullness, stable. Kidneys: Horseshoe kidney, normal variant. Negative for kidney stones, cysts or masses. Bowel: Mild diverticulosis. Mild increased stool in the colon. Negative for small or large-bowel obstruction. Appendix: Not imaged. Vasculature: [id number]-[id number] atherosclerotic vascular calcifications of the abdominal aorta and its branches. Peritoneum / Retroperitoneum: Negative. Bones and Soft Tissues: Moderate degenerative changes of the lumbar spine hipsand pelvis. CT/Abdomen WITH IV Contrast IMPRESSION: Mild fatty liver. Stable appearance of the adrenal glands likely adrenal adenomas. Reading Location: [id number] CC: Dr. Pito Avitai MD ~ [employer] Supervisor: Signed [facility] Radiology Diagnostic study note 02-12-2025 Note Date & Type Note Facility 02-12-2025 Radiology Diagnostic study note [facility] Imaging Services [address] [place] [id number] Lung Screening MR#: [id number] Acct: [id number] Name: FOSTER WORTHINGTON Rep #: [id number] : 1955 M 69 From: Nickolas Trammell MD PCP: Dr. Pito Avitia MD Status: G CLI Study:Low Dose CT Lung Screening Date of Exam : 02/12/25 Exam# [id number] Ordering Dr: Pito Avitia MD PROCEDURE: LOW [...] use of iterative reconstruction technique). REFERENCE LINK: WISErg Lung-RADS RADIATION DOSE SUMMARY: CTDlvol: 2.39 mGy [...] LDCT. Other Significant Findings: None. Reading Location: [place] [address] CC: Dr. Pito Avitia MD ~ [employer] Supervisor: Signed [facility] Clinical Note 07-21-2021 Note Date & Type [...] Megan Durán PA-C Danny ADORNO, Marco Solomon [facility] Clinical Note 07-15-2021 Note Date & Type Note Facility 07-15-2021 Note Patient Education Ma terdenny Name: Foster Worthington Alonso Current Date: 07/15/2021 09:57:26 Alyssa/[facility] : 1955 The following sheet(s) are the Patient Education Leaflets for Ander Fosterheber [facility] Radiology Colonoscopy A camera attached to a [...] they can be restarted right away. ? [id number] [employer]. [address] [place] [address]. All rights reserved. This information is not intended as a substitute for professional medical care. Always follow your healthcare professional's instructions. [facility] Evaluation note Note Date & Type Note Facility Evaluation note No assessment information availa ble [facility] Work Phone: Reason for referral (narrative) Note Date & Type Note Facility Reason for referral (narrative) No reason for referral information available [facility] Work Phone: Summary Purpose Family History No [...] 3am SMOKER February 12, 2025 2:5 0pm Chief Complaint Admit Date EORDERS June 07, 2025 7: 43am Chief Complaint Admit Date EORDERS June 07, 2025 7: 43am ADRENAL MASS June 27, 2025 3:53pm Chief Complaint Admit Date EORDERS June 07, 2025 7: 43am ADRENAL MASS June 27, 2025 3:53pm copd flair July 09, 2025 2:11pm Additional Source Comments (unrecognized sect ion and content) No Status Records FoundNo Status Records Found INFORMATION SOURCE (unrecogn ized section and content) DATE CREATED AUTHOR 09/11/2021 [facility] DATE CREATED AUTHOR AUTHOR'S ORGANIZ ATION 07/16/2025 [facility] Goals (unrecognized section and content) Goals may [...] February 12, 2025 End: February 12, 2025 Team Status: Active Member Role/Relationship Status Dates Dr. Pito Avitia MD Primary Care Provider Active Team Status: Inactive Member Role/Relationship Status Dates Dr. Pito Avitia MD Primary Care Provider Active Start: June 07, 2025 End: June 07, 2025 Dr. Pito Avitia MD Attending Provider Active Start: June 07, 2025 End: June 07, 2025 Dr. Pito Avitia MD Referring Provider Active Start: June 07, 2025 End: June 07, 2025 Team Status: Inactive Member Role/Relationship Status Dates Dr. Pito Avitia MD Primary Care Provider Active Start: June 27, 2025 End: June 27, 2025 Dr. Pito Avitia MD Attending Provider Active Start: June 27, 2025 End: June 27, 2025 Dr. Pito Avitia MD Referring Provider Active Start: June 27, 2025 End: June 27, 2025 Team Status: Active Member Role/Relationship Status Dates Dr. Pito Avitia MD Primary care physician Active Team Status: Inactive Member Role/Relationship Status Dates Dr. Pito Avitia MD Primary care physician Active Start: June 07, 2025 End: June 07, 2025 Dr. Pito Avitia MD Attending physician Active Start: June 07, 2025 End: June 07, 2025 Dr. Pito Avitia MD Referring Provider Active Start: June 07, 2025 End: June 07, 2025 Team Status: Inactive Member Role/Relationship Status Dates Dr. Pito Avitia MD Primary care physician Active Start: June 27, 2025 End: June 27, 2025 Dr. Pito Avitia MD Attending physician Active Start: June 27, 2025 End: June 27, 2025 Dr. Pito Avitia MD Referring Provider Active Start: June 27, 2025 End: June 27, 2025 Team Status: Inactive Member Role/Relationship Status Dates Dr. Pito Avitia MD Primary care physician Active Start: July 09, 2025 End: July 09, 2025 Dr. Pito Avitia MD Attending physician Active Start: July 09, 2025 End: July 09, 2025 Dr. Pito Avitia MD Referring Provider Active Start: July 09, 2025 End: July 09, 2025 FOR RECORDS PERTAINING TO PATIENTS WHO [...] BE BASED ON THE PRIMARY CLINICAL RECORDS. [facility]. provides no warranty or guarantee of the accuracy or completeness of information in this document.
[2025-10-03 10:53] LABS: Hematocrit 41.6 % (40-54); Hemoglobin 14.2 g/dL (13.0-16.5); Immature Granulocytes Count 0.040 X10^3/uL (0.0-0.0); Mean Corp Hgb Conc 34.1 g/dL (32-36); Mean Corpuscular Volume 98.6 fL (80-94); Mean Platelet Vol. 9.8 fl (6.2-12.0); NRBC Flagged by Analyzer 0 % (0-5); Platelet Count 238 K/mm3 (150-450); RBC Distribution Width CV 13.1 % (11.6-14.6); RBC Distribution Width SD 47.4 fl (35.1-43.9); Red Blood Count 4.22 M/mm3 (4.6-6.2); White Blood Count 8.1 K/mm3 (4.4-11.0)
[2025-10-03 10:56] LABS: Color, Urine Yellow (Yellow); Glucose, Dipstick Normal (Normal); Ketone-Dipstick Negative (Negative); Leukocyte Esterase-Dipstick Negative /ul (Negative); Nitrite-Dipstick Negative (Negative); Occult Blood-Urine 25 /ul (Negative); Protein-Dipstick 15 mg/dl (Negative); Specific Gravity, Urine 1.010 (1.002-1.030); Urine Bilirubin Dipstick Negative (Negative)
[2025-10-03 11:11] LABS: Red Blood Cells-Urine 0-5 SEEN /hpf (0-5); Squamous Epithelial Cells - UA 0-5 SEEN /hpf (0-5)
[2025-10-03 11:17] LABS: Creatinine, Urine (random) 71.50 mg/dL (39.00-259.00); Microalbumin,Random Urine < 12.0 mg/L (<20 mg/L)
[2025-10-03 11:37] LABS: AST(SGOT) 23 U/L (<=37); Alanine Aminotransfer ALT/SGPT 30 U/L (<=46); Albumin, Serum 4.4 g/dL (3.4-4.8); Alkaline Phosphatase 53 U/L (40-129); Anion Gap 11 (5-15); BUN 13 mg/dL (4-19); BUN/Creat Ratio 17.7 RATIO (10-20); Calcium,Total 9.8 mg/dL (7.6-11.0); Carbon Dioxide 26.3 mmol/L (21.0-32.0); Chloride 96 mmol/L (98-108); Cholesterol 122 mg/dL (<=200); Globulin 2.8 g/dL (2.2-4.2); Glucose 123 mg/dL (70-99); Low Density Lipoprotein Calc. 62 mg/dL; Potassium 4.2 mmol/L (3.3-5.1); Triglycerides 131 mg/dL; Very Low Density Lipoprotein 26 mg/dL (5-40); Vitamin D,25 Hydroxy 77.8 ng/mL (30-100); cholesterol:hdl ratio screen 3.37
== END | disposition home or self-care (01) ==
LOC: MTLAB 07:32
PROVIDERS: PCP Family Medicine; Referring Provider Family Medicine; Visit Provider Family Medicine
DX: E11.8 Type 2 diabetes mellitus with unspecified complications (principal); E55.9 Vitamin D deficiency, unspecified
CPT/HCPCS: 36415; 80053; 80061; 81001; 82043; 82306; 82570; 83036; 85025

== ENCOUNTER → 2025-10-15 | Outpatient (CLI) | payer MEDICARE, SELFPAY | END | disposition home or self-care (01) | LOC: PSN 12:57 | PROVIDERS: PCP Family Medicine; Referring Provider Family Medicine; Visit Provider Family Medicine | DX: J44.9 Chronic obstructive pulmonary disease, unspecified (principal) | CPT/HCPCS: 94060; 94726; 94729 ==